=== PATIENT | male | born 1960 | race Caucasian/White ===

== ENCOUNTER 2020-03-15 08:54 | Outpatient (REF) | payer OTHER, SELFPAY ==
--- NOTE | 2020-03-15 08:52 | EMG_ITS ---
Bilateral median and ulnar motor and sensory studies were performed. Bilateral radial sensory studies were performed. Paraspinal muscles were tested with a needle. IMPRESSION: [id number] bilateral median neuropathy across carpal tunnel. MD NAI Bird/EUNICE / [id number]
== END 2020-03-15 08:55 | disposition home or self-care (01) ==
LOC: HO.NEURO 08:54
PROVIDERS: PCP Internal Medicine; Visit Provider Internal Medicine
DX: M79.606 Pain in leg, unspecified (principal); E11.9 Type 2 diabetes mellitus without complications; R20.2 Paresthesia of skin
CPT/HCPCS: 95860; 95861; 95886; 95911

== ENCOUNTER 2020-05-14 08:00 | Outpatient (REF) | payer OTHER, SELFPAY ==
[2020-05-14 11:17] LABS: MANUAL DIFF FLAG NO
[2020-05-14 11:27] LABS: Basophils Absolute Auto 0.1 X10*3/uL (0.0-0.2); Basophils Percent Auto 0.6 % (0-2); Eosinophils Absolute Auto 0.4 X10*3/uL (0.0-0.4); Eosinophils Percent Auto 3.9 % (0-4); Hematocrit 40.5 % (42-52); Hemoglobin 13.1 g/dl (14.0-18.0); Imm Gran Abs Auto 0.03 X10*3/uL (0.00-0.03); Imm Gran Pct Auto 0.3 % (0.0-0.4); Lymphocytes Absolute Auto 2.7 X10*3/uL (1.2-4.9); Lymphocytes Percent Auto 29.3 % (20-40); Mean Corpuscular HGB Conc 32.3 g/dl (31.0-36.0); Mean Corpuscular Hemoglobin 27.3 pg (27.0-33.0); Mean Corpuscular Volume 84.6 fL (80-98); Mean Platelet Volume 11.6 fL (9.4-12.4); Monocytes Absolute Auto 0.8 X10*3/uL (0.1-1.2); Monocytes Percent Auto 8.6 % (2-11); Neutrophils Absolute Auto 5.3 X10*3/uL (2.0-8.3); Neutrophils Percent Auto 57.3 % (45-73); Platelet Count 249 X10*3/uL (160-400); Red Blood Count 4.79 X10*6/uL (4.60-5.80); Red Cell Distribution Width 13.3 % (11.0-16.0); White Blood Count 9.3 X10*3/uL (4.8-10.8)
[2020-05-14 11:42] LABS: Alanine Aminotransferase 23 U/L (0-40); Alkaline Phosphatase 58 U/L (39-117); Anion Gap 12 (12-20); Aspartate Amino Transferase 16 U/L (5-37); Bilirubin Total 0.3 mg/dL (0.0-1.0); Blood Urea Nitrogen 15 mg/dL (9-16); Carbon Dioxide 27 mmol/L (22-29); Chloride 102 mmol/L (96-108); Cholesterol 151 mg/dL; Estimated Glomerular Filt Rate 59; Glucose Fasting 237 mg/dL (60-99); HDL Cholesterol 37 mg/dL; LDL Cholesterol Calculated 85 mg/dl; Potassium 4.4 mmol/l (3.3-5.1); Sodium 137 mmol/L (135-145); Total Protein 6.3 g/dL (6.5-8.0); Triglycerides 145 mg/dL; Uric Acid 6.1 mg/dL (3.4-7.0)
[2020-05-14 11:47] LABS: Glucose Urine UA 500 MG/DL (NEG); Leukocyte Esterase Urine NEG (NEG); Nitrite Urine NEG (NEG); PH 5.5 (5.0-8.0); Urine Blood NEG (NEG); Urine Ketones NEG (NEG); Urine Protein NEG (NEG-TRACE)
[2020-05-14 11:52] LABS: Appearance Urine CLEAR; Color Urine YELLOW
[2020-05-14 11:53] LABS: Creatinine Urine 118.94 mg/dL
[2020-05-14 11:58] LABS: TSH reflex Free T4 0.81 mIU/mL (0.32-4.0); Vitamin D 25-OH Total 37.4 ng/mL (>30)
[2020-05-14 12:04] LABS: Estimated Average Glucose 212 mg/dL
[2020-05-14 12:14] LABS: Mucus Urine TRACE /LPF; RBC Urine 0-2 /HPF (0); Squamous Epithelial Cell Urine TRACE /LPF
== END 2020-05-14 08:01 | disposition home or self-care (01) ==
LOC: HO.HMGCLDS 08:00
PROVIDERS: PCP Internal Medicine; Visit Provider Internal Medicine
DX: E78.5 Hyperlipidemia, unspecified (principal); I10 Essential (primary) hypertension; E11.9 Type 2 diabetes mellitus without complications; R00.0 Tachycardia, unspecified; D64.9 Anemia, unspecified; E55.9 Vitamin D deficiency, unspecified; E66.9 Obesity, unspecified; K21.9 Gastro-esophageal reflux disease without esophagitis
CPT/HCPCS: 36415; 80053; 80061; 81001; 82043; 82306; 83036; 84443; 84550; 85025

== ENCOUNTER 2020-05-17 09:40 | Outpatient (REF) | payer OTHER, SELFPAY | END 2020-05-17 09:41 | disposition home or self-care (01) | LOC: HO.LAB 09:40 | PROVIDERS: Visit Provider Nurse Practitioner Family | DX: R05 Cough (principal); Z20.828 Contact with and (suspected) exposure to other viral communicable diseases | CPT/HCPCS: U0003 ==

== ENCOUNTER 2020-05-29 07:13 | Emergency (ER) | payer OTHER, SELFPAY ==
[2020-05-29 07:20] VITALS: BP 124/73; BP 180/100; PULSE 113; PULSE 122; RESP 14; TEMP 37.8; O2SAT 94; BMI 36.3
--- NOTE | 2020-05-29 07:29 | ED_ITS ---
HPI - URI/Sore Throat General Chief Complaint: Weakness Stated Complaint: covid Time Seen by Provider: 05/29/20 07:27 Source: patient and EMS Mode of arrival: EMS Limitations: no limitations History of Present Illness HPI Narrative: 60 yo male started to feel sick 05/15 test on 05/17 resulted COVID + on 05/20 here with persistent fevers, body aches, N/V, congested cough - took tylenol last night for fever MD elicited complaint: fever, cough and nasal congestion Onset (ago): day(s) (10+ days) Consistency: constant Severity: moderate Description of mucous: clear Able to tolerate fluids by mouth: Yes Exacerbating factors: nothing Relieving factors: nothing Associated symptoms: fever, chills, nasal congestion, cough, shortness of breath, nausea and vomiting Treatments prior to arrival: none Related Data Home Medications Medication Instructions Recorded Confirmed cyclobenzaprine 10 mg tablet 10 mg PO TID PRN 05/14/20 05/14/20 lisinopril 10 mg tablet 10 mg PO DAILY 05/14/20 05/14/20 metformin 1,000 mg tablet 1,000 mg PO BID 05/14/20 05/14/20 omeprazole 20 mg capsule,delayed 20 mg PO DAILY 05/14/20 05/14/20 release pioglitazone 15 mg tablet 15 mg PO DAILY 05/14/20 05/14/20 simvastatin 20 mg tablet 20 mg PO BEDTIME 05/14/20 05/14/20 Previous Rx's Medication Instructions Recorded azithromycin 250 mg tablet See Rx Instructions PO .COMPLEX #6 05/17/20 tab hydrocodone-homatropine 5 ml PO Q6H PRN #60 ml 05/29/20 ondansetron 4 mg PO Q8H PRN #20 tab 05/29/20 Allergies Allergy/AdvReac Type Severity Reaction Status Date / Time No Known Allergies Allergy Verified 05/14/20 18:00 Review of Systems Review of Systems: Constitutional : No Weight loss, pos Fever, pos Chills, pos Fatigue, pos Malaise ENT/Mouth : No sore throat, No Rhinorrhea Eyes: No Eye Pain, No Swelling, No Redness Cardiovascular : No Chest Pain, posSOB, No Dyspnea on Exertion, No Orthopnea, No Edema, No Palpitations, pos cough Respiratory : posCough, No Sputum, No Wheezing Gastrointestinal : pos Nausea, pos Vomiting, No Diarrhea, No Constipation, No abdominal Pain, No Hematochezia, No Melena Genitourinary : No Dysuria, No Urinary Frequency, No Hematuria, Musculoskeletal : No joint pain, No Myalgias, No Joint Swelling Skin : No Skin Lesions, No rash Neuro : pos Weakness, No Numbness, No Dizziness, No Headache Psych : No Anxiety/Panic, No Depression Heme/Lymph: No Bruising, No Bleeding,No Lymphadenopathy Endocrine : No Polyuria, No Polydipsia All other systems reviewed and are negative [facility] Past Medical History Attestation statement: The following information was validated with the patient. Medical History Benign essential hypertension Degenerative arthritis of left shoulder region Diabetes mellitus GERD without esophagitis Gout Median nerve neuropathy Mild anemia Obesity (BMI 30-39.9) Pure hypercholesterolemia Tarsal tunnel syndrome of both lower extremities Vitamin D deficiency Surgical History No pertinent past surgical history Family History Family History Father No problems noted. Mother No problems noted. Social History Social History Alcohol intake: former Smoking Status: Current every day smoker Tobacco Type: Cigar Cigarettes Per Day: 1 Advance Directives: No Advance Directives Information Provided: No Physical Exam Vital Signs: Vital Signs: Last Vital Signs Temp 99.6 F 05/29/20 09:26 Pulse 104 H 05/29/20 09:26 Resp 14 05/29/20 09:26 BP 116/68 05/29/20 09:26 Pulse Ox 95 05/29/20 09:26 Body Mass Index 36.3 Appearance: Alert. Oriented X3. No acute distress. Not toxic appearing Eyes: Pupils equal, round and reactive to light. ENT: Pharynx normal. Neck: Normal inspection. Neck supple. CVS: tachycardic heart rate and rhythm. Pulses normal. Respiratory: No respiratory distress. Breath sounds normal. Abdomen: Soft and non-tender. Skin: Skin warm and dry. Normal skin color. Normal skin turgor. Extremities: No lower extremity edema. No calf ttp Neuro: Oriented X 3. No motor deficit. No sensory deficit. Course Course Course Narrative: able to tolerate PO, no hypoxia, can be managed as outpatient chemistry stable MDM - URI/Sore Throat MDM Narrative Medical decision making narrative: 60 yo male with COVID here c/o cough/congestion/dyspnea with n/v overall he is not toxic appearing, no resp distress, clear lungs, sats > 94% on RA at this time will obtain basic labs, CXR, given ODT zofran/tylenol has no chest pain to suggest ACS/PE. Lab Data Result diagrams: 05/29/20 08:10 05/29/20 08:10 Labs: Lab Results 05/29/20 05/29/20 05/29/20 Range/Units 08:10 08:10 08:10 WBC 7.8 (4.8-10.8) X10*3/uL RBC 4.23 L (4.60-5.80) X10*6/uL Hgb 11.6 L (14.0-18.0) g/dl Hct 35.0 L (42-52) % MCV 82.7 (80-98) fL MCH 27.4 (27.0-33.0) pg MCHC 33.1 (31.0-36.0) g/dl RDW 13.2 (11.0-16.0) % Plt Count 197 (160-400) X10*3/uL MPV 10.3 (9.4-12.4) fL Immature Gran % (Auto) 0.3 (0.0-0.4) % Neut % (Auto) 74.9 H (45-73) % Lymph % (Auto) 16.5 L (20-40) % [place] % (Auto) 7.4 (2-11) % Eos % (Auto) 0.9 (0-4) % Baso % (Auto) 0.0 (0-2) % Lymph # (Auto) 1.3 (1.2-4.9) X10*3/uL [place] # (Auto) 0.6 (0.1-1.2) X10*3/uL Eos # (Auto) 0.1 (0.0-0.4) X10*3/uL Baso # (Auto) 0.0 (0.0-0.2) X10*3/uL Abs Immat Gran (auto) 0.02 (0.00-0.03) X10*3/uL Absolute Neuts (auto) 5.9 (2.0-8.3) X10*3/uL Absolute Nucleated RBC 0.000 (0.0-0.012) X10*3/uL Nucleated RBC % (auto) 0.0 (0.0-0.2) /100WBC Sodium 137 (135-145) mmol/L Potassium 3.7 (3.3-5.1) mmol/l Chloride 102 (96-108) mmol/L Carbon Dioxide 25 (22-29) mmol/L Anion Gap 14 (12-20) BUN 12 (9-16) mg/dL Creatinine 1.19 (0.5-1.4) mg/dL Estim Creat Clear Calc 85.3 Estimated GFR > 60 Random Glucose 220 H (60-115) mg/dL Lactic Acid 1.5 (0.5-2.0) mmol/L Calcium 7.6 L D (8.4-10.2) mg/dL Magnesium 1.6 (1.6-2.6) mg/dL Total Bilirubin 0.5 (0.0-1.0) mg/dL Direct Bilirubin 0.3 (0.0-0.5) mg/dL AST 26 D (5-37) U/L ALT 27 (0-40) U/L Alkaline Phosphatase 97 D (39-117) U/L Lactate Dehydrogenase 257 (118-273) U/L Total Protein 5.8 L (6.5-8.0) g/dL Albumin 3.5 (3.5-5.0) g/dL Discharge Plan Discharge Clinical Impression: COVID-19, Nausea Patient Disposition: Home, Self-Care Instructions: Acute Nausea and Vomiting (ED), COVID-19 (Coronavirus Disease 2019) (ED) Additional Instructions: return to ED for any worsening symptoms or concerns Prescriptions: New ondansetron 4 mg tablet,disintegrating 4 mg PO Q8H PRN (Reason: nausea and vomiting) Qty: 20 RF: 0 hydrocodone-homatropine 5-1.5 mg/5 mL (5 mL) syrup 5 ml PO Q6H PRN (Reason: cough) Qty: 60 RF: 0 No Action omeprazole 20 mg capsule,delayed release(DR/EC) 20 mg PO DAILY RF: 0 lisinopril 10 mg tablet 10 mg PO DAILY RF: 0 simvastatin 20 mg tablet 20 mg PO BEDTIME RF: 0 metformin 1,000 mg tablet 1,000 mg PO BID RF: 0 cyclobenzaprine 10 mg tablet 10 mg PO TID PRNRF: 0 pioglitazone 15 mg tablet 15 mg PO DAILY RF: 0 azithromycin 250 mg tablet See Rx Instructions PO .COMPLEX Qty: 6 RF: 0 Referrals: Miguel Abdi MD [Primary Care Provider] - 1 week (if not better) Stand Alone Forms: Work/School Release
[2020-05-29] MEDS: Acetaminophen 325 MG TABLET 650 MG PO (07:57)
[2020-05-29 08:21] LABS: MANUAL DIFF FLAG NO
[2020-05-29 08:22] LABS: Eosinophils Absolute Auto 0.1 X10*3/uL (0.0-0.4); Eosinophils Percent Auto 0.9 % (0-4); Hemoglobin 11.6 g/dl (14.0-18.0); Imm Gran Abs Auto 0.02 X10*3/uL (0.00-0.03); Imm Gran Pct Auto 0.3 % (0.0-0.4); Lymphocytes Absolute Auto 1.3 X10*3/uL (1.2-4.9); Lymphocytes Percent Auto 16.5 % (20-40); Mean Corpuscular HGB Conc 33.1 g/dl (31.0-36.0); Mean Corpuscular Hemoglobin 27.4 pg (27.0-33.0); Mean Corpuscular Volume 82.7 fL (80-98); Mean Platelet Volume 10.3 fL (9.4-12.4); Monocytes Absolute Auto 0.6 X10*3/uL (0.1-1.2); Monocytes Percent Auto 7.4 % (2-11); Neutrophils Absolute Auto 5.9 X10*3/uL (2.0-8.3); Neutrophils Percent Auto 74.9 % (45-73); Platelet Count 197 X10*3/uL (160-400); Red Blood Count 4.23 X10*6/uL (4.60-5.80); Red Cell Distribution Width 13.2 % (11.0-16.0); White Blood Count 7.8 X10*3/uL (4.8-10.8)
--- NOTE | 2020-05-29 08:28 | XR_ITS ---
EXAMINATION: XR CHEST CLINICAL INFORMATION: Dyspnea, cough.Covid Positive COMPARISON: None TECHNIQUE: Frontal view of the chest was obtained. FINDINGS: The lungs are well-expanded and clear of acute process. There is platelike atelectasis left lung base. Heart size and pulmonary vascularity is normal. There is moderate spondylosis dorsal spine. No lytic process. XR/XR chest 1V IMPRESSION: Platelike atelectasis left lung base. No acute process.
[2020-05-29 08:46] LABS: Lactic Acid 1.5 mmol/L (0.5-2.0)
[2020-05-29 09:05] LABS: Alanine Aminotransferase 27 U/L (0-40); Albumin Level 3.5 g/dL (3.5-5.0); Alkaline Phosphatase 97 U/L (39-117); Anion Gap 14 (12-20); Aspartate Amino Transferase 26 U/L (5-37); Bilirubin Direct 0.3 mg/dL (0.0-0.5); Bilirubin Total 0.5 mg/dL (0.0-1.0); Blood Urea Nitrogen 12 mg/dL (9-16); Calcium 7.6 mg/dL (8.4-10.2); Carbon Dioxide 25 mmol/L (22-29); Chloride 102 mmol/L (96-108); Creatinine Clr Calc Pharmacy 85.3; Estimated Glomerular Filt Rate > 60; Glucose Random 220 mg/dL (60-115); Lactate Dehydrogenase 257 U/L (118-273); Magnesium 1.6 mg/dL (1.6-2.6); Potassium 3.7 mmol/l (3.3-5.1); Sodium 137 mmol/L (135-145); Total Protein 5.8 g/dL (6.5-8.0)
[2020-05-29 09:26] VITALS: BP 116/68; PULSE 104; RESP 14; TEMP 37.6; O2SAT 95
--- NOTE | 2020-05-29 09:30 | PC.NURSE ---
resting quietly in bed, continues to report bilateral hip pain/aches. no acute resp distress noted. afebrile. no vomiting tolerating po fluids
== END 2020-05-29 10:57 | disposition home or self-care (01) ==
PROVIDERS: Emergency Provider Emergency Medicine; PCP Internal Medicine
DX: R11.2 Nausea with vomiting, unspecified (principal); Z86.16 Personal history of COVID-19; E11.9 Type 2 diabetes mellitus without complications; I10 Essential (primary) hypertension; Z79.84 Long term (current) use of oral hypoglycemic drugs; Z79.899 Other long term (current) drug therapy; F17.290 Nicotine dependence, other tobacco product, uncomplicated
CPT/HCPCS: 36415; 71045; 80048; 80076; 83605; 83615; 83735; 85025; 87040; 87147; 87205; 99283; 99284

== ENCOUNTER 2020-08-16 09:58 | Outpatient (REF) | payer OTHER, SELFPAY ==
[2020-08-16 11:08] LABS: MANUAL DIFF FLAG NO
[2020-08-16 11:19] LABS: Basophils Percent Auto 0.4 % (0-2); Eosinophils Absolute Auto 0.1 X10*3/uL (0.0-0.4); Eosinophils Percent Auto 1.5 % (0-4); Hematocrit 39.1 % (42-52); Hemoglobin 12.6 g/dl (14.0-18.0); Imm Gran Abs Auto 0.02 X10*3/uL (0.00-0.03); Imm Gran Pct Auto 0.2 % (0.0-0.4); Lymphocytes Absolute Auto 2.4 X10*3/uL (1.2-4.9); Lymphocytes Percent Auto 25.9 % (20-40); Mean Corpuscular HGB Conc 32.2 g/dl (31.0-36.0); Mean Corpuscular Hemoglobin 27.4 pg (27.0-33.0); Monocytes Absolute Auto 0.8 X10*3/uL (0.1-1.2); Monocytes Percent Auto 8.6 % (2-11); Neutrophils Absolute Auto 5.9 X10*3/uL (2.0-8.3); Neutrophils Percent Auto 63.4 % (45-73); Platelet Count 245 X10*3/uL (160-400); Red Cell Distribution Width 14.4 % (11.0-16.0); White Blood Count 9.4 X10*3/uL (4.8-10.8)
[2020-08-16 11:30] LABS: Glucose Urine UA NEG (NEG); Leukocyte Esterase Urine NEG (NEG); Nitrite Urine NEG (NEG); PH 5.5 (5.0-8.0); Specific Gravity - Urine 1.025 (1.005-1.025); Urine Blood NEG (NEG); Urine Ketones NEG (NEG); Urine Protein NEG (NEG-TRACE)
[2020-08-16 11:38] LABS: Color Urine YELLOW
[2020-08-16 11:39] LABS: Appearance Urine CLEAR
[2020-08-16 12:06] LABS: Vitamin D 25-OH Total 37.3 ng/mL (>30)
[2020-08-16 12:08] LABS: Alanine Aminotransferase 24 U/L (0-40); Albumin Level 4.2 g/dL (3.5-5.0); Alkaline Phosphatase 56 U/L (39-117); Anion Gap 14 (12-20); Aspartate Amino Transferase 16 U/L (5-37); Bilirubin Total 0.4 mg/dL (0.0-1.0); Blood Urea Nitrogen 11 mg/dL (9-16); Calcium 9.2 mg/dL (8.4-10.2); Carbon Dioxide 26 mmol/L (22-29); Chloride 106 mmol/L (96-108); Cholesterol 166 mg/dL; Estimated Glomerular Filt Rate > 60; Glucose Fasting 160 mg/dL (60-99); HDL Cholesterol 34 mg/dL; LDL Cholesterol Calculated 86 mg/dl; Potassium 4.1 mmol/L (3.3-5.1); Sodium 142 mmol/L (135-145); Total Protein 6.4 g/dL (6.5-8.0); Triglycerides 234 mg/dL; Uric Acid 6.5 mg/dL (3.4-7.0)
== END 2020-08-16 09:59 | disposition home or self-care (01) ==
LOC: HO.HMGCLDS 09:58
PROVIDERS: PCP Internal Medicine; Visit Provider Internal Medicine
DX: I10 Essential (primary) hypertension (principal); E55.9 Vitamin D deficiency, unspecified; E78.00 Pure hypercholesterolemia, unspecified; M10.9 Gout, unspecified
CPT/HCPCS: 36415; 80053; 80061; 81003; 82306; 84443; 84550; 85025

== ENCOUNTER → 2020-09-28 08:16 | Outpatient (BNVA) | payer OTHER, SELFPAY | PROVIDERS: PCP Internal Medicine; Visit Provider Nurse Practitioner Gerontology | DX: E11.9 Type 2 diabetes mellitus without complications (principal); E78.00 Pure hypercholesterolemia, unspecified; I10 Essential (primary) hypertension; E66.9 Obesity, unspecified | CPT/HCPCS: 82947 ==

== ENCOUNTER → 2020-10-25 09:09 | Outpatient (BNVA) | payer OTHER, SELFPAY | PROVIDERS: PCP Internal Medicine; Visit Provider Dietitian, Registered | DX: E11.9 Type 2 diabetes mellitus without complications (principal) | CPT/HCPCS: 97802 ==

== ENCOUNTER → 2020-11-09 09:18 | Outpatient (BNVA) | payer OTHER, SELFPAY | PROVIDERS: PCP Internal Medicine; Visit Provider Nurse Practitioner Gerontology | DX: E11.65 Type 2 diabetes mellitus with hyperglycemia (principal); E66.9 Obesity, unspecified; E78.00 Pure hypercholesterolemia, unspecified; I10 Essential (primary) hypertension; Z79.899 Other long term (current) drug therapy | CPT/HCPCS: 82947; 99212 ==

== ENCOUNTER → 2020-12-05 09:34 | Outpatient (BNVA) | payer OTHER, SELFPAY | PROVIDERS: PCP Internal Medicine; Visit Provider Dietitian, Registered | DX: E11.65 Type 2 diabetes mellitus with hyperglycemia (principal) | CPT/HCPCS: 97803 ==

== ENCOUNTER 2020-12-19 06:43 | Outpatient (REF) | payer OTHER, SELFPAY ==
[2020-12-19 08:25] LABS: MANUAL DIFF FLAG NO
[2020-12-19 08:31] LABS: Basophils Percent Auto 0.4 % (0-2); Eosinophils Absolute Auto 0.3 X10*3/uL (0.0-0.4); Eosinophils Percent Auto 3.3 % (0-4); Hematocrit 41.4 % (42-52); Hemoglobin 13.2 g/dl (14.0-18.0); Imm Gran Abs Auto 0.03 X10*3/uL (0.00-0.03); Imm Gran Pct Auto 0.3 % (0.0-0.4); Lymphocytes Absolute Auto 2.9 X10*3/uL (1.2-4.9); Lymphocytes Percent Auto 30.3 % (20-40); Mean Corpuscular HGB Conc 31.9 g/dl (31.0-36.0); Mean Corpuscular Hemoglobin 27.5 pg (27.0-33.0); Mean Corpuscular Volume 86.3 fL (80-98); Mean Platelet Volume 11.3 fL (9.4-12.4); Monocytes Absolute Auto 0.9 X10*3/uL (0.1-1.2); Monocytes Percent Auto 9.1 % (2-11); Neutrophils Absolute Auto 5.5 X10*3/uL (2.0-8.3); Neutrophils Percent Auto 56.6 % (45-73); Platelet Count 260 X10*3/uL (160-400); Red Cell Distribution Width 13.7 % (11.0-16.0); White Blood Count 9.7 X10*3/uL (4.8-10.8)
[2020-12-19 08:32] LABS: Glucose Urine UA >=1000 MG/DL (NEG); Leukocyte Esterase Urine NEG (NEG); Nitrite Urine NEG (NEG); Urine Blood NEG (NEG); Urine Ketones NEG (NEG); Urine Protein NEG (NEG-TRACE)
[2020-12-19 08:35] LABS: Appearance Urine CLEAR; Color Urine YELLOW
[2020-12-19 08:43] LABS: Estimated Average Glucose 171 mg/dL; Hemoglobin A1c % 7.6 %
[2020-12-19 08:48] LABS: WBC Urine 0 /HPF (0-4)
[2020-12-19 08:49] LABS: RBC Urine 0 /HPF (0)
[2020-12-19 08:51] LABS: Creatinine Urine 91.23 mg/dL; Microalbum/Creatinine Ratio Ur 8.7 ug/mg cr
[2020-12-19 08:59] LABS: Alanine Aminotransferase 23 U/L (0-40); Albumin Level 4.1 g/dL (3.5-5.0); Alkaline Phosphatase 59 U/L (39-117); Anion Gap 13 (12-20); Aspartate Amino Transferase 16 U/L (5-37); Bilirubin Total 0.2 mg/dL (0.0-1.0); Blood Urea Nitrogen 19 mg/dL (9-16); Calcium 9.2 mg/dL (8.4-10.2); Carbon Dioxide 26 mmol/L (22-29); Chloride 107 mmol/L (96-108); Cholesterol 157 mg/dL; Estimated Glomerular Filt Rate 56; Glucose Fasting 153 mg/dL (60-99); HDL Cholesterol 28 mg/dL; LDL Cholesterol Calculated 54 mg/dl; Potassium 4.6 mmol/L (3.3-5.1); Sodium 141 mmol/L (135-145); Total Protein 6.1 g/dL (6.5-8.0); Triglycerides 378 mg/dL
[2020-12-19 09:09] LABS: TSH reflex Free T4 0.76 uIU/mL (0.32-4.0); Vitamin D 25-OH Total 48.8 ng/mL (>30)
[2020-12-19 09:10] LABS: Uric Acid 6.5 mg/dL (3.4-7.0)
== END 2020-12-19 06:44 | disposition home or self-care (01) ==
LOC: HO.LAB 06:43
PROVIDERS: PCP Internal Medicine; Visit Provider Internal Medicine
DX: E11.9 Type 2 diabetes mellitus without complications (principal); E78.00 Pure hypercholesterolemia, unspecified; I10 Essential (primary) hypertension; D64.9 Anemia, unspecified; K21.9 Gastro-esophageal reflux disease without esophagitis; E66.9 Obesity, unspecified; E55.9 Vitamin D deficiency, unspecified; M10.00 Idiopathic gout, unspecified site
CPT/HCPCS: 36415; 80053; 80061; 81001; 82043; 82306; 83036; 84443; 84550; 85025

== ENCOUNTER → 2021-01-22 07:23 | Outpatient (BNVA) | payer OTHER, SELFPAY | PROVIDERS: PCP Internal Medicine; Visit Provider Nurse Practitioner Gerontology | DX: E11.9 Type 2 diabetes mellitus without complications (principal); E66.9 Obesity, unspecified; E78.00 Pure hypercholesterolemia, unspecified; E55.9 Vitamin D deficiency, unspecified; I10 Essential (primary) hypertension | CPT/HCPCS: 82947; 99212 ==

== ENCOUNTER → 2021-01-24 15:08 | Outpatient (BNVA) | payer OTHER, SELFPAY | PROVIDERS: PCP Internal Medicine; Referring Provider Internal Medicine; Visit Provider Surgery | DX: K42.9 Umbilical hernia without obstruction or gangrene (principal); K43.2 Incisional hernia without obstruction or gangrene | CPT/HCPCS: 99202 ==

== ENCOUNTER → 2021-02-04 09:12 | Outpatient (BNVA) | payer OTHER, SELFPAY | PROVIDERS: PCP Internal Medicine; Visit Provider Dietitian, Registered | DX: E11.9 Type 2 diabetes mellitus without complications (principal) | CPT/HCPCS: 97803 ==

== ENCOUNTER 2021-02-06 09:57 | Outpatient (REF) | payer OTHER, SELFPAY ==
--- NOTE | ~2021-02-06 | CT_ITS ---
EXAMINATION: CT ABDOMEN AND PELVIS WITHOUT CONTRAST CLINICAL INFORMATION: Umbilical hernia without obstruction. COMPARISON: None TECHNIQUE: Multidetector volumetric imaging was performed from the superior aspect of the liver through the pubic symphysis. Sagittal and coronal reformatted images were obtained on the technologist's workstation. This CT examination was performed using dose optimization techniques as appropriate, variously including the following: *Automated exposure control *Adjustment of mA and/or kV according to patient size (this includes techniques or standardized protocols for targeted exams where dose is matched to indication/reason for exam; i.e. extremities or head) *Use of iterative reconstruction technique DLP: 814 mGy-cm FINDINGS: LUNG BASES: There are minimal linear atelectatic changes in the lingula. The lung bases are clear. Heart size is normal. LIVER, GALLBLADDER, AND BILIARY TREE: The liver is normal in size, shape, and attenuation. No focal hepatic lesion or biliary ductal dilatation is present. The gallbladder has been surgically removed. PANCREAS: Unremarkable. SPLEEN: Unremarkable. ADRENAL GLANDS: Unremarkable. KIDNEYS AND URETERS: The kidneys are normal in size, shape, and attenuation. Tiny nonobstructing 1 mm radiopaque calculi upper pole left kidney. No additional radiopaque calculi seen in either kidney. No caliectasis or hydronephrosis. There is mild perinephric bilateral stranding. BLADDER: Unremarkable. GASTROINTESTINAL TRACT: Scattered moderate stool is seen in the colon without distention. The small-bowel loops are normal caliber. The stomach is nondistended with recently ingested food. ABDOMINAL WALL: There is a right paramidline epigastric abdominal wall hernia containing fat. A left paraumbilical hernia with 1.2 cm wide neck containing intraperitoneal fat is noted. A small right paraumbilical hernia is also noted containing fat. It is better visualized on axial image 59/3. There is a left inguinal hernia containing a loop of sigmoid colon. LYMPH NODES: No abnormal size vertebral lymph nodes are seen. VASCULAR: Unremarkable. PELVIC VISCERA: There is no free air or free fluid. OSSEOUS STRUCTURES: There is mild degenerative facet joint arthropathy L5-S1 and L4-L5 disc levels. No fracture, lytic or sclerotic process seen. Mild ventral spondylosis lower dorsal spine is noted. CT/CT abdomen pelvis wo con IMPRESSION: There are several abdominal wall hernias: 1. Right paramidline anterior abdominal wall epigastric hernia containing fat. 2. Left paraumbilical hernia containing fat. 3. A right periumbilical hernia containing fat. 4. A left inguinal hernia containing a loop of sigmoid colon. Moderate constipation without obstruction. Gallbladder has been surgically removed.
== END 2021-02-06 09:58 | disposition home or self-care (01) ==
LOC: HO.CT 09:57
PROVIDERS: Visit Provider Surgery
DX: K42.9 Umbilical hernia without obstruction or gangrene (principal)
CPT/HCPCS: 74176

== ENCOUNTER 2021-04-26 07:48 | Day surgery (SDC) | payer OTHER, SELFPAY ==
--- NOTE | 2021-04-15 | ECG_ITS ---
Test Reason : preop Blood Pressure : / mmHG Vent. Rate : 109 BPM Atrial Rate : 109 BPM P-R Int : 148 ms QRS Dur : 082 ms QT Int : 336 ms P-R-T Axes : 073 073 054 degrees QTc Int : 452 ms Sinus tachycardia Intra-ventricular conduction delay Otherwise normal ECG When compared with ECG of 05-NOV-2018 11:52, No significant change was found Referred By: Cristiana Thornton Electronically Signed By:CONCEPCION ELIZABETH MD
[2021-04-15 11:49] VITALS: BP 121/66; PULSE 116; RESP 16; O2SAT 96; BMI 37.3
--- NOTE | 2021-04-15 12:23 | HO.ANESPROP2 ---
Documented by User: Cristiana Thornton NP 04/25/21 09:36 HPI - Anesthesia Eval Consult details Narrative: 60yo M for Repair of Recurrent Large Umbilical Hernia and Incisional Hernia RUQ Chronic tachy Pt reports FBS 110-140 PMFSH Active Problems Active Problems: All Active Problems (Updated 04/15/21 @ 12:07 by Telma Anderson RN) Cough (Acute) COVID-19 (Acute) Contact dermatitis (Acute) Annual physical exam (Acute) Colon cancer screening (Acute) Incisional hernia (Acute) Recurrent umbilical hernia (Acute) Ventral hernia (Acute) Umbilical hernia (Acute) Diabetes mellitus (Acute) Benign essential hypertension (Acute) Pure hypercholesterolemia (Acute) Obesity (BMI 30-39.9) (Acute) Median nerve neuropathy (Acute) Tarsal tunnel syndrome of both lower extremities (Acute) Gout (Acute) Vitamin D deficiency (Acute) Degenerative arthritis of left shoulder region (Acute) Mild anemia (Acute) GERD without esophagitis (Acute) Past Medical History Medical History (Updated 04/15/21 @ 12:07 by Telma Anderson RN) Benign essential hypertension Degenerative arthritis of left shoulder region Diabetes mellitus GERD without esophagitis Gout Incisional hernia Median nerve neuropathy Mild anemia Obesity (BMI 30-39.9) Pure hypercholesterolemia Recurrent umbilical hernia Tachycardia Tarsal tunnel syndrome of both lower extremities Umbilical hernia Ventral hernia Vitamin D deficiency Family History Family History Father No problems noted. Mother No problems noted. Family history of problems with anesthesia: No Surgical History Surgical History (Updated 04/15/21 @ 12:10 by Telma Anderson RN) Hx of cholecystectomy Hx of colonoscopy Hx of hernia repair Hx of rotator cuff surgery Hx of umbilical hernia repair History of Problems with Anesthesia: No Social History Social History Household Members: Family Housing: House Are you a primary life care planner to a significant other at home: Yes (takes care of mother) Do you presently have visiting nurse or other home services: No Alcohol intake: former Patient Tobacco Use Status: Current someday Tobacco user Tobacco use type: Cigar Cigarettes Per Day: 2 Years Smoked: 30 Have you been hit, kicked, punched, or otherwise hurt by someone within the past year? If so, by whom?: No Are you DNR?: No Advance Directives: No Advance Directives Information Provided: No (declined) Advance Directives on File: No Recently lost weight without trying: No Nutrition Risks: No Nutritional Risk Poor oral hygiene: No service: No Current occupational status: unemployed Narrative Narrative: Recent mild URI with Nasal congestion, productive cough. No fevers. Is clearing. Lungs CTA at PAT. No SOB with speaking in long sentences. No CP/SOB with yard work. Meds Allergies Allergy/AdvReac Type Severity Reaction Status Date / Time No Known Allergies Allergy Verified 04/15/21 12:11 Home Medications Medication Instructions Recorded Confirmed Last Taken Type multivitamin 1 tab PO DAILY 01/22/21 04/15/21 Unknown History [id number] C-Mn 500 cap PO 04/15/21 Unknown History mg-400 mg capsule Exam Exam Date and Time: April 15, 2021 1223 Height,Weight and Vital Signs: Height 5 ft 10 in Weight 117.934 kg Last Vital Signs Pulse 116 H 04/15/21 11:49 Resp 16 04/15/21 11:49 BP 121/66 04/15/21 11:49 Pulse Ox 96 04/15/21 11:49 Pertinent Lab Results Pertinent Lab Results: Lab Results 04/15/21 04/15/21 04/15/21 Range/Units 13:02 13:02 13:02 WBC 12.7 H (4.8-10.8) X10*3/uL RBC 4.93 (4.60-5.80) X10*6/uL Hgb 13.3 L (14.0-18.0) g/dl Hct 41.6 L (42.0-52.0) % MCV 84.4 (80.0-98.0) fL MCH 27.0 (27.0-33.0) pg MCHC 32.0 (31.0-36.0) g/dl RDW 14.1 (11.0-16.0) % Plt Count 280 (160-400) X10*3/uL MPV 10.6 (9.4-12.4) fL Absolute Nucleated RBC 0.000 (0.0-0.012) X10*3/uL Nucleated RBC % (auto) 0.0 (0.0-0.2) /100WBC Sodium 141 (135-145) mmol/L Potassium 4.2 (3.3-5.1) mmol/L Chloride 108 (96-108) mmol/L Carbon Dioxide 24 (22-29) mmol/L Anion Gap 13 (12-20) BUN 19 H (9-16) mg/dL Creatinine 1.42 H (0.5-1.4) mg/dL Estim Creat Clear Calc 70.2 Estimated GFR 51 Random Glucose 181 H (60-115) mg/dL Estimat Average Glucose 169 mg/dL Hemoglobin A1c % 7.5 % Calcium 9.5 (8.4-10.2) mg/dL Narrative Narrative: EKG 03/2021 Vent. Rate : 109 BPM ? ? Atrial Rate : 109 BPM ?? P-R Int : 148 ms? QRS Dur : 082 ms ? ? QT Int : 336 ms ? ? ? P-R-T Axes : 073 073 054 degrees ?? QTc Int : 452 ms ? Sinus tachycardia Intra-ventricular conduction delay Otherwise normal ECG When compared with ECG of 05-NOV-2018 11:52, No significant change was found Airway Mallampati Class: II TM Dist: >3cm Neck ROM: Full Loose/Missing/Broken Teeth: No (1 x crown right lower) Heart: tachy, RR Lungs: CTAB Assessment and Plan Assessment Anesthesia Assessment: Anesthesia Plan Discussed, Smoking Cess. Discussed and PAT Visit Final Anesthetic Review Family History of Problems with Anesthesia: No History of Problems with Anesthesia: No Documented by User: Sergey Thompson 04/26/21 09:38 HPI - Anesthesia Eval Consult details Narrative: 60yo M for Repair of Recurrent Large Umbilical Hernia and Incisional Hernia RUQ Chronic tachycardia . no symptoms Pt reports FBS 110-140 stye on the eye . [facility] Past Medical History Medical History (Updated 04/15/21 @ 12:07 by Telma Anderson RN) Benign essential hypertension Degenerative arthritis of left shoulder region Diabetes mellitus GERD without esophagitis Gout Incisional hernia Median nerve neuropathy Mild anemia Obesity (BMI 30-39.9) Pure hypercholesterolemia Recurrent umbilical hernia Tachycardia Tarsal tunnel syndrome of both lower extremities Umbilical hernia Ventral hernia Vitamin D deficiency Functional capacity: independent ambulation Family History Family History Father No problems noted. Mother No problems noted. Surgical History Surgical History (Updated 04/15/21 @ 12:10 by Telma Anderson RN) Hx of cholecystectomy Hx of colonoscopy Hx of hernia repair Hx of rotator cuff surgery Hx of umbilical hernia repair Social History Social History Household Members: Family Housing: House Are you a primary life care planner to a significant other at home: Yes (takes care of mother) Do you presently have visiting nurse or other home services: No Alcohol intake: former Patient Tobacco Use Status: Current someday Tobacco user Tobacco use type: Cigar Cigarettes Per Day: 2 Years Smoked: 30 Have you been hit, kicked, punched, or otherwise hurt by someone within the past year? If so, by whom?: No Are you DNR?: No Advance Directives: No Advance Directives Information Provided: No (declined) Advance Directives on File: No Recently lost weight without trying: No Nutrition Risks: No Nutritional Risk Poor oral hygiene: No service: No Current occupational status: unemployed Meds Allergies Allergy/AdvReac Type Severity Reaction Status Date / Time No Known Allergies Allergy Verified 04/15/21 12:11 Home Medications Medication Instructions Recorded Confirmed Last Taken Type multivitamin 1 tab PO DAILY 01/22/21 04/15/21 Unknown History [id number]-[id number]-[id number] C-Mn 500 cap PO 04/15/21 Unknown History mg-400 mg capsule Exam Airway Loose/Missing/Broken Teeth: Yes (Missing tooth , caps bottom . ) Assessment and Plan Final Anesthetic Review NPO: Yes ASA Class: III Final Preanesthetic Review: Meds/Allgs Chart Reviewed and Anes Risks/Benef Reviewed Patient Risk: Intermediate Procedure Risk: Intermediate Anesthetic Plan Anesthetic Plan: GA Disposition: Standard PACU
[2021-04-15 13:25] LABS: Hematocrit 41.6 % (42.0-52.0); Hemoglobin 13.3 g/dl (14.0-18.0); Mean Corpuscular Volume 84.4 fL (80.0-98.0); Mean Platelet Volume 10.6 fL (9.4-12.4); Platelet Count 280 X10*3/uL (160-400); Red Blood Count 4.93 X10*6/uL (4.60-5.80); Red Cell Distribution Width 14.1 % (11.0-16.0); White Blood Count 12.7 X10*3/uL (4.8-10.8)
[2021-04-15 13:34] LABS: Estimated Average Glucose 169 mg/dL; Hemoglobin A1c % 7.5 %
[2021-04-15 13:43] LABS: Anion Gap 13 (12-20); Blood Urea Nitrogen 19 mg/dL (9-16); Calcium 9.5 mg/dL (8.4-10.2); Carbon Dioxide 24 mmol/L (22-29); Chloride 108 mmol/L (96-108); Creatinine Clr Calc Pharmacy 70.2; Estimated Glomerular Filt Rate 51; Glucose Random 181 mg/dL (60-115); Potassium 4.2 mmol/L (3.3-5.1); Sodium 141 mmol/L (135-145)
[2021-04-26] VITALS (10 sets, daily range): BP systolic 125–156; BP diastolic 71–90; PULSE 99–107; RESP 15–18; TEMP 36.3; O2SAT 93–99
[2021-04-26] MEDS: Lactated Ringers 1,000 ML 100 ML IVCONT (08:48)
[2021-04-26 08:50] LABS: Glucose, Whole Blood 142 mg/dL (60-115)
[2021-04-26 08:57] LABS: COVID-19 Test Negative (Negative); IDNOW Serial# 9DD0AD1C
--- NOTE | 2021-04-26 09:14 | MHC.SHP ---
Pre-Procedural Eval Section A Date of Service: 04/26/21 Section B Chief Complaint: Recurrent umbilical hernia,Incisional hernia Details of Present Illness: has had a ventral hernia and recurrent umbilical hernia, discomfort and wants to proceed with repair. Relevant Family History (Specify if Yes): No Relevant Social History: None Present Medications: see Short Stay Collaborative assessment Medical History: Significant History ( Obesity, hyperlipidemia,, GERD, gout, hypertension) History of Previous Operations: Relevant previous surgery/procedure and date(s) ( has previous repair of an umbilical hernia; had laparoscopic cholecystectomy in the past) Allergies: Allergies Allergy/AdvReac Type Severity Reaction Status Date / Time No Known Allergies Allergy Verified 04/15/21 12:11 Review of Systems Sugical H&P ROS: Negative: Constitution, Cardiovascular, Respiratory, Neurological, Psychiatric, Hem-Onc, Allergic/Immunologic, Gastrointestinal, Genitourinary, Musculoskeletal, Integumentary, Endocrine and Eyes/Ears/Nose/Throat Exam Surgical H&P Exam: Normal: HEENT, Normal: Heart, Normal: Lungs, Normal: Extremities, Normal: Skin and Normal: Neurological Exam Comment: hernia umbilicus as well as the right side of the upper abdomen from previous port site Plan Diagnosis/Plan: Unchanged I have reviewed the history and physical and performed a pertinent physical examination on my patient. No changes have occurred unless specified.
--- NOTE | 2021-04-26 10:57 | W.PM.OPN ---
Operative Note Operative Note Date of Service: 04/26/21 Narrative: Preop diagnosis: Recurrent umbilical hernia Incisional hernia port site in the epigastric area Postop diagnosis: The same Procedure: repair of a recurrent umbilical hernia Ventralex mesh, with partial omentectomy, and repair of a port site hernia in the epigastric area also with Ventralex mesh, extensive lysis of adhesions Surgeon: Mike Billy MD 1st clerical administrative assistant: YESI Wall The patient is a 60-year-old male who had seen me in the office because of a mass on the umbilicus as well as on the epigastric area. He had a previous repair of an umbilical hernia about 20 years ago in he says that this has recurred. he had a mass on the left periumbilical area which was not reducible. There was also note of reducible mass on the epigastric area to the right of the midline from what appeared to be a previous port site for laparoscopic cholecystectomy. Both of these defects were seen on the CAT scan with note of just fatty contents Without bowel loops. he wanted to proceed with repair. He understood the technique of repair with mesh placement. He was aware of the risks, benefits, and alternatives. He was brought to the operating room and placed supine on the table under general anesthesia via endotracheal tube. The abdomen is prepped and draped in the usual sterile fashion. A surgical time-out was done. The patient received cefazolin 2 g IV preoperatively I made the short incision and epigastric area with the a blade 15. This area had been infiltrated with lidocaine 1%. This incision was deepened with electrocautery through the full-thickness of the skin and subcutaneous fat until was able to visualize hernia. The hernia contained only fat. I sharply dissected the hernia off of the rest of subcutaneous layer fashion using sharp dissection with Metzenbaum scissors. I divided adhesions of the hernia from the fascial edge until was able to reduce this hernia completely. The edges surrounding the hernia were clear of adhesions. Defect was about 1.3 cm in diameter. I used a small-sized Ventralex mesh and this was flattened any the fascia. The Prolene straps of the mesh were secured to the fascial edge with Prolene 2 sutures. I trimmed the Prolene straps flush. I closed the fascial defect with a [id number] Maxon 1 stitch. I then proceeded to to the repair of the hernia on the umbilicus. I infiltrated the planned line of incision lidocaine 1%. I made an incision to the left of the umbilicus using blade 15. This was carried down through the full-thickness of the skin and subcutaneous fat with electrocautery until was able to visualize hernia contents. The hernia contents consisted only of fat. There was actually a large amount of omental fat within the hernia. I had to separate this from the like us by careful sharp dissection with electrocautery as well as with Metzenbaum scissors. I circumferentially dissected the rest of the hernia contents of the subcutaneous fat until was able to visualize the pending fascia. I defined the fascial edges of the hernia and carefully created the rest of the hernia contents using dissection. We had to do a lot of lysis of adhesions because of the large amounts of adhesions tethering the MIGUEL to the fascial edge. Furthermore, there was a large amount of omentum that was incarcerated chronically. The fascial defect was small and we could not reduce the hernia at all so I had to do partial omentectomy with careful ligation and division the omentum. Eventually I was able to reduce the entire hernia through the fascial defect. The fascial defect was about 0.6 cm in diameter. I used a small-sized Ventralex mesh and this was flattened under the fascia. I actually examined the surrounding area of the umbilicus and there was no other hernia the could be palpated or visualized. I secured the Prolene straps of the mesh to the fascial edge with Prolene 2 sutures. I trimmed the Prolene straps flush on the fascial level. I closed the fascia with a [id number] Maxon 1 stitch. Copies irrigated. The subcutaneous layer was closed with Dexon 3-0 interrupted sutures. Skin closure was achieved on all incisions using Dexon 4-0 subcuticular sutures. Steri-Strips and dressings were applied. Both incisions were infiltrated with Marcaine 0.5% for postop analgesia. The procedure was then completed The patient tolerated procedure well. There were no complications noted. Initial and final counts of sponges and instruments were correct. Estimated blood loss was about 25 cc The patient was extubated without difficulty and transferred to the recovery room with stable vital signs.
[2021-04-26] MEDS: HYDROmorphone HCl 0.5 MG/0.5 ML SYRINGE IVPUSH (11:56)
[2021-04-26] MEDS: oxyCODONE HCl Immed Release 5 MG TABLET 10 MG PO (13:07)
== END 2021-04-26 14:02 | disposition home or self-care (01) ==
PROVIDERS: Nurse Practitioner; PCP Internal Medicine; Visit Provider Surgery
PROC: (CPT 49560; principal; 2021-04-26 09:20)
DX: K42.9 Umbilical hernia without obstruction or gangrene (principal); K43.2 Incisional hernia without obstruction or gangrene; Z90.49 Acquired absence of other specified parts of digestive tract; K21.9 Gastro-esophageal reflux disease without esophagitis; I10 Essential (primary) hypertension; E11.9 Type 2 diabetes mellitus without complications; Z79.84 Long term (current) use of oral hypoglycemic drugs; Z79.899 Other long term (current) drug therapy; E66.9 Obesity, unspecified; Z68.37 Body mass index [BMI] 37.0-37.9, adult; Z20.822 Contact with and (suspected) exposure to COVID-19; F17.200 Nicotine dependence, unspecified, uncomplicated
CPT/HCPCS: 49560; 49568; 49585; 49999; 36415; 80048; 82947; 83036; 85027; 87635; 88302; 88304; 93005; C1781; J0131; J0690; J1170; J2250; J2370; J2405; J3010

== ENCOUNTER → 2021-05-09 09:30 | Outpatient (BNVA) | payer OTHER, SELFPAY | PROVIDERS: PCP Internal Medicine; Referring Provider Internal Medicine; Visit Provider Surgery | DX: Z48.815 Encounter for surgical aftercare following surgery on the digestive system (principal); Z87.19 Personal history of other diseases of the digestive system; K40.90 Unilateral inguinal hernia, without obstruction or gangrene, not specified as recurrent | CPT/HCPCS: 99212 ==

== ENCOUNTER 2021-05-29 07:44 | Outpatient (REF) | payer OTHER, SELFPAY ==
[2021-05-29 08:00] LABS: MANUAL DIFF FLAG NO
[2021-05-29 08:41] LABS: Basophils Percent Auto 0.4 % (0-2); Eosinophils Absolute Auto 0.4 X10*3/uL (0.0-0.4); Eosinophils Percent Auto 4.2 % (0-4); Hematocrit 42.1 % (42.0-52.0); Hemoglobin 13.6 g/dl (14.0-18.0); Imm Gran Abs Auto 0.02 X10*3/uL (0.00-0.03); Imm Gran Pct Auto 0.2 % (0.0-0.4); Lymphocytes Percent Auto 31.2 % (20-40); Mean Corpuscular HGB Conc 32.3 g/dl (31.0-36.0); Mean Corpuscular Hemoglobin 27.7 pg (27.0-33.0); Mean Corpuscular Volume 85.7 fL (80.0-98.0); Mean Platelet Volume 10.7 fL (9.4-12.4); Monocytes Absolute Auto 1.1 X10*3/uL (0.1-1.2); Monocytes Percent Auto 11.1 % (2-11); Neutrophils Percent Auto 52.9 % (45-73); Platelet Count 245 X10*3/uL (160-400); Red Blood Count 4.91 X10*6/uL (4.60-5.80); Red Cell Distribution Width 14.2 % (11.0-16.0); White Blood Count 9.5 X10*3/uL (4.8-10.8)
[2021-05-29 08:58] LABS: Estimated Average Glucose 169 mg/dL; Hemoglobin A1c % 7.5 %
[2021-05-29 09:12] LABS: Appearance Urine CLEAR; Color Urine YELLOW; Glucose Urine UA >=1000 MG/DL (NEG); Leukocyte Esterase Urine NEG (NEG); Nitrite Urine NEG (NEG); Urine Blood NEG (NEG); Urine Ketones NEG (NEG); Urine Protein NEG (NEG-TRACE)
[2021-05-29 09:13] LABS: Alanine Aminotransferase 25 U/L (0-40); Alkaline Phosphatase 58 U/L (39-117); Anion Gap 10 (12-20); Aspartate Amino Transferase 15 U/L (5-37); Bilirubin Total 0.4 mg/dL (0.0-1.0); Blood Urea Nitrogen 14 mg/dL (9-16); Calcium 9.9 mg/dL (8.4-10.2); Carbon Dioxide 30 mmol/L (22-29); Chloride 106 mmol/L (96-108); Cholesterol 174 mg/dL; Estimated Glomerular Filt Rate 58; Glucose Fasting 164 mg/dL (60-99); HDL Cholesterol 37 mg/dL; LDL Cholesterol Calculated 89 mg/dl; Potassium 4.3 mmol/L (3.3-5.1); Sodium 142 mmol/L (135-145); Total Protein 6.2 g/dL (6.5-8.0); Triglycerides 243 mg/dL; Uric Acid 5.8 mg/dL (3.4-7.0)
[2021-05-29 09:24] LABS: TSH reflex Free T4 0.73 uIU/mL (0.32-4.0); Vitamin D 25-OH Total 25.5 ng/mL (>30)
[2021-05-29 09:28] LABS: RBC Urine 0 /HPF (0); WBC Urine 0 /HPF (0-4)
[2021-05-29 10:02] LABS: Creatinine Urine 84.14 mg/dL; Microalbum/Creatinine Ratio Ur 11.8 ug/mg cr
== END 2021-05-29 07:45 | disposition home or self-care (01) ==
LOC: HO.LAB 07:44
PROVIDERS: PCP Internal Medicine; Visit Provider Internal Medicine
DX: E55.9 Vitamin D deficiency, unspecified (principal); E11.9 Type 2 diabetes mellitus without complications; E78.00 Pure hypercholesterolemia, unspecified; I10 Essential (primary) hypertension; M10.9 Gout, unspecified
CPT/HCPCS: 36415; 80053; 80061; 81001; 82043; 82306; 83036; 84443; 84550; 85025

== ENCOUNTER → 2021-07-29 09:03 | Outpatient (BNVA) | payer OTHER, SELFPAY | PROVIDERS: PCP Internal Medicine; Visit Provider Dietitian, Registered | DX: E11.9 Type 2 diabetes mellitus without complications (principal) | CPT/HCPCS: 97803 ==

== ENCOUNTER → 2021-07-30 12:51 | Outpatient (BNVA) | payer OTHER, SELFPAY | PROVIDERS: PCP Internal Medicine; Visit Provider Nurse Practitioner Gerontology | DX: E11.42 Type 2 diabetes mellitus with diabetic polyneuropathy (principal); I12.9 Hypertensive chronic kidney disease with stage 1 through stage 4 chronic kidney disease, or unspecified chronic kidney disease; E78.5 Hyperlipidemia, unspecified; E78.00 Pure hypercholesterolemia, unspecified; E55.9 Vitamin D deficiency, unspecified; E66.9 Obesity, unspecified; F17.290 Nicotine dependence, other tobacco product, uncomplicated; Z68.37 Body mass index [BMI] 37.0-37.9, adult; Z79.4 Long term (current) use of insulin; Z79.84 Long term (current) use of oral hypoglycemic drugs | CPT/HCPCS: 82947; 99212 ==

== ENCOUNTER → 2021-09-04 11:44 | Outpatient (BNVA) | payer OTHER, SELFPAY | PROVIDERS: PCP Internal Medicine; Referring Provider Internal Medicine; Visit Provider Surgery | DX: K40.90 Unilateral inguinal hernia, without obstruction or gangrene, not specified as recurrent (principal) | CPT/HCPCS: 99212 ==

== ENCOUNTER 2021-10-18 07:32 | Outpatient (REF) | payer OTHER, SELFPAY ==
[2021-10-18 08:27] LABS: Estimated Average Glucose 163 mg/dL; Hemoglobin A1c % 7.3 %
[2021-10-18 08:49] LABS: Alanine Aminotransferase 26 U/L (0-40); Albumin Level 3.9 g/dL (3.5-5.0); Alkaline Phosphatase 58 U/L (39-117); Anion Gap 10 (12-20); Aspartate Amino Transferase 16 U/L (5-37); Bilirubin Total 0.3 mg/dL (0.0-1.0); Blood Urea Nitrogen 16 mg/dL (9-16); Calcium 9.7 mg/dL (8.4-10.2); Carbon Dioxide 27 mmol/L (22-29); Chloride 106 mmol/L (96-108); Cholesterol 173 mg/dL; Estimated Glomerular Filt Rate 57; Glucose Fasting 158 mg/dL (60-99); HDL Cholesterol 36 mg/dL; LDL Cholesterol Calculated 99 mg/dl; Potassium 4.3 mmol/L (3.3-5.1); Sodium 139 mmol/L (135-145); Total Protein 6.4 g/dL (6.5-8.0); Triglycerides 192 mg/dL
[2021-10-18 09:03] LABS: TSH reflex Free T4 0.79 uIU/mL (0.32-4.0); Vitamin D 25-OH Total 30.4 ng/mL (>30)
[2021-10-18 09:12] LABS: Appearance Urine CLEAR; Color Urine YELLOW; Glucose Urine UA >=1000 MG/DL (NEG); Leukocyte Esterase Urine NEG (NEG); Nitrite Urine NEG (NEG); PH 5.5 (5.0-8.0); Urine Blood NEG (NEG); Urine Ketones NEG (NEG); Urine Protein NEG (NEG-TRACE)
[2021-10-18 09:28] LABS: Mucus Urine TRACE /LPF; RBC Urine 0-2 /HPF (0); Squamous Epithelial Cell Urine TRACE /LPF; WBC Urine 0-2 /HPF (0-4)
[2021-10-18 09:38] LABS: Creatinine Urine 86.33 mg/dL; Microalbum/Creatinine Ratio Ur 10.4 ug/mg cr
== END 2021-10-18 07:33 | disposition home or self-care (01) ==
LOC: HO.LAB 07:32
PROVIDERS: PCP Internal Medicine; Visit Provider Internal Medicine
DX: E78.00 Pure hypercholesterolemia, unspecified (principal); E55.9 Vitamin D deficiency, unspecified; E11.9 Type 2 diabetes mellitus without complications
CPT/HCPCS: 36415; 80053; 80061; 81001; 82043; 82306; 83036; 84443

== ENCOUNTER → 2021-10-28 09:27 | Outpatient (BNVA) | payer OTHER, SELFPAY | PROVIDERS: PCP Internal Medicine; Visit Provider Dietitian, Registered | DX: E11.9 Type 2 diabetes mellitus without complications (principal) | CPT/HCPCS: 97803 ==

== ENCOUNTER 2021-11-08 11:22 | Day surgery (SDC) | payer OTHER, SELFPAY ==
[2021-11-01 12:26] VITALS: BMI 39.4
--- NOTE | 2021-11-07 08:09 | HO.ANESPROP2 ---
Documented by User: Cristiana Thornton NP 11/07/21 08:11 HPI - Anesthesia Eval Consult details Narrative: 61yo M for Left Hernia Repair Inguinal possible mesh s/p hernia repairs 04/2021 with GA-ETT 7.5 Chronic tachy PMFSH Active Problems Active Problems: All Active Problems (Updated 09/04/21 @ 12:14 by Mike Billy MD) Cough (Acute) COVID-19 (Acute) Contact dermatitis (Acute) Annual physical exam (Acute) Colon cancer screening (Acute) Left inguinal hernia (Acute) Incisional hernia (Acute) Recurrent umbilical hernia (Acute) Ventral hernia (Acute) Umbilical hernia (Acute) Diabetes mellitus (Acute) Benign essential hypertension (Acute) Pure hypercholesterolemia (Acute) Obesity (BMI 30-39.9) (Acute) Median nerve neuropathy (Acute) Tarsal tunnel syndrome of both lower extremities (Acute) Gout (Acute) Vitamin D deficiency (Acute) Degenerative arthritis of left shoulder region (Acute) Mild anemia (Acute) GERD without esophagitis (Acute) Past Medical History Medical History Tachycardia Family History Family History Father No problems noted. Mother No problems noted. Family history of problems with anesthesia: No Surgical History Surgical History History of umbilical hernia repair (~03/2021) Hx of cholecystectomy Hx of colonoscopy Hx of hernia repair Hx of rotator cuff surgery Hx of umbilical hernia repair History of Problems with Anesthesia: No Social History Social History Household Members: Family Housing: House Are you a primary laboratory animal care veterinarian to a significant other at home: No Do you presently have visiting nurse or other home services: No Alcohol intake: current Alcohol intake frequency: holidays/special occasions only Patient Tobacco Use Status: Former Tobacco user Quit Date: cigars 4 months ago Tobacco use type: Cigarette and Cigar Cigarettes Per Day: 2 Years Smoked: 30 Smoked in Last 30 Days: No Patient Interested in Nicotine Replacement: No Use of substances other than those prescribed or required for medical reasons: No Have you been hit, kicked, punched, or otherwise hurt by someone within the past year? If so, by whom?: No Are you DNR?: No Advance Directives: No Advance Directives Information Provided: Yes (mailed with instructions) Advance Directives on File: No Recently lost weight without trying: No Eating poorly because of decreased appetite: No Nutrition Risks: No Nutritional Risk service: No Current occupational status: unemployed Cognitive needs: No Hearing needs: Yes Vision needs: Yes Meds Allergies Allergy/AdvReac Type Severity Reaction Status Date / Time No Known Allergies Allergy Verified 11/01/21 12:16 Home Medications Medication Instructions Recorded Confirmed Last Taken Type multivitamin 1 tab PO DAILY 01/22/21 11/01/21 Unknown History [id number]-zwymgxfuw-nki C-Mn 500 cap PO 04/15/21 10/22/21 Unknown History mg-400 mg capsule Exam Exam Date and Time: November 07, 2021 0809 Height,Weight and Vital Signs: Height 5 ft 11 in Weight 128.197 kg Pertinent Lab Results Pertinent Lab Results: Laboratory Tests 05/29/21 10/18/21 07:58 07:44 WBC 9.5 Hgb 13.6 L Hct 42.1 Plt Count 245 Sodium 139 Potassium 4.3 Chloride 106 Carbon Dioxide 27 BUN 16 Creatinine 1.27 Narrative Narrative: EKG 03/2021 Vent. Rate : 109 BPM ? ? Atrial Rate : 109 BPM ?? P-R Int : 148 ms? QRS Dur : 082 ms ? ? QT Int : 336 ms ? ? ? P-R-T Axes : 073 073 054 degrees ?? QTc Int : 452 ms ? Sinus tachycardia Intra-ventricular conduction delay Otherwise normal ECG When compared with ECG of 05-NOV-2018 11:52, No significant change was found Assessment and Plan Assessment Anesthesia Assessment: Chart Reviewed Final Anesthetic Review Family History of Problems with Anesthesia: No History of Problems with Anesthesia: No Documented by User: Enma Cassidy MD 11/08/21 13:49 PMFSH Past Medical History Medical History Tachycardia Functional capacity: wheelchair bound Family History Family History Father No problems noted. Mother No problems noted. Surgical History Surgical History History of umbilical hernia repair (~03/2021) Hx of cholecystectomy Hx of colonoscopy Hx of hernia repair Hx of rotator cuff surgery Hx of umbilical hernia repair Social History Social History Household Members: Family Housing: House Are you a primary laboratory animal care veterinarian to a significant other at home: No Do you presently have visiting nurse or other home services: No Alcohol intake: current Alcohol intake frequency: holidays/special occasions only Patient Tobacco Use Status: Former Tobacco user Quit Date: cigars 4 months ago Tobacco use type: Cigarette and Cigar Cigarettes Per Day: 2 Years Smoked: 30 Smoked in Last 30 Days: No Patient Interested in Nicotine Replacement: No Use of substances other than those prescribed or required for medical reasons: No Have you been hit, kicked, punched, or otherwise hurt by someone within the past year? If so, by whom?: No Are you DNR?: No Advance Directives: No Advance Directives Information Provided: Yes (mailed with instructions) Advance Directives on File: No Recently lost weight without trying: No Eating poorly because of decreased appetite: No Nutrition Risks: No Nutritional Risk service: No Current occupational status: unemployed Cognitive needs: No Hearing needs: Yes Vision needs: Yes Meds Allergies Allergy/AdvReac Type Severity Reaction Status Date / Time No Known Allergies Allergy Verified 11/01/21 12:16 Home Medications Medication Instructions Recorded Confirmed Last Taken Type multivitamin 1 tab PO DAILY 01/22/21 11/01/21 Unknown History [id number]-vlidztrsa-[id number] C-Mn 500 cap PO 04/15/21 10/22/21 Unknown History mg-400 mg capsule Exam Airway Mallampati Class: III TM Dist: >3cm Neck ROM: Full Loose/Missing/Broken Teeth: No Heart: RRR Lungs: CTA Assessment and Plan Assessment Anesthesia Assessment: Anesthesia Plan Discussed Final Anesthetic Review NPO: Yes Final Preanesthetic Review: Meds/Allgs Chart Reviewed, Consent Obtained/Reviewed and Anes Risks/Benef Reviewed Patient Risk: Intermediate Procedure Risk: Low Anesthetic Plan Anesthetic Plan: GA Disposition: Standard PACU
[2021-11-08] VITALS (8 sets, daily range): BP systolic 130–163; BP diastolic 71–94; PULSE 102–110; RESP 16–18; TEMP 36.3–37; O2SAT 93–98
[2021-11-08] MEDS: Lactated Ringers 1,000 ML 100 ML IVCONT (12:15)
[2021-11-08 12:22] LABS: Glucose, Whole Blood 131 mg/dL (60-115)
--- NOTE | 2021-11-08 12:25 | MHC.SHP ---
Pre-Procedural Eval Section A Date of Service: 11/08/21 Section B Chief Complaint: hernia Details of Present Illness: has had a reducible left inguinal hernia, with increasing discomfort Relevant Family History (Specify if Yes): No Relevant Social History: None Present Medications: see Short Stay Collaborative assessment Medical History: Significant History ( diabetes, hypertension, high BMI) Allergies: Allergies Allergy/AdvReac Type Severity Reaction Status Date / Time No Known Allergies Allergy Verified 11/01/21 12:16 Review of Systems Sugical H&P ROS: Negative: Constitution, Cardiovascular, Respiratory, Neurological, Psychiatric, Hem-Onc, Allergic/Immunologic, Gastrointestinal, Genitourinary, Musculoskeletal, Integumentary, Endocrine and Eyes/Ears/Nose/Throat Exam Surgical H&P Exam: Normal: HEENT, Normal: Heart, Normal: Lungs, Normal: Extremities, Normal: Skin and Normal: Neurological and Significant Findings: Abdomen ( left inguinal hernia, obvious with Valsalva) Plan Diagnosis/Plan: Unchanged I have reviewed the history and physical and performed a pertinent physical examination on my patient. No changes have occurred unless specified.
--- NOTE | 2021-11-08 15:54 | P.OP_ITS ---
Operative Note Operative Note Date of Service: 11/08/21 Narrative: Preop diagnosis: Left inguinal hernia Postop diagnosis: Left inguinal hernia indirect Procedure: Repair of a left hernia with mesh Surgeon: Mike Billy MD Marine Steamfitter: veronica Lynch student The patient is a 61-year-old male with a reducible mass of the left groin consistent the left inguinal hernia. This was confirmed on the CT scan He understood the technique of repair with mesh. He was aware of the risks, benefits, and alternatives He was brought to the operating room. He was placed supine under general anesthesia via laryngeal mask airway. The area of the left groin was prepped and draped in the usual sterile fashion. A surgical time-out was done. The patient received cefazolin 2 g IV preoperatively I infiltrated the planned line of incision using lidocaine 1%. I made an incision on the skin along animaginary line from the anterior superior iliac spine to the pubic ramus using blade 15.. This was carried down through the full-thickness of the skin and subcutaneous fat electrocautery. Please note the patient had this large amount of subcutaneous fat from his central obesity. We had to go through a thick amount of fat before we able to identify the external oblique aponeurosis. Once the external oblique aponeurosis was identified, I bluntly dissected this. I exposed the external ring. I made an incision on the external ring overlying the inguinal canal. I then applied hemostats on the edges of the divided aponeurosis. I bluntly dissected the underside to create a pocket for the mesh. The inguinal canal was examined and there was note of a large hernia containing fat with. There were no bowel loops seen. I bluntly dissected the spermatic cord and its contents along with the hernia until was able to pass a Neva drain around this. This was achieved with some difficulty in view of the patient's habitus as well as with the large amount of fat. I was able to then pass a Neva drain around the spermatic cord and its contents. I bluntly dissected the large fat containing hernia off of the rest of the cord contents. I was then able to visualize the vas deferens and the accompanying vessels. These were protected during the dissection. I continued to separate the hernia from the cord until I was able to reduce this through the internal ring. This was therefore an indirect hernia. I reinforced the internal ring with a large size Prolene plug. The plug was secured with Prolene 2 sutures to the shelving edge of the inguinal and laterally and the internal oblique superiorly and medially. Pain for the floor of the canal with a keyhole mesh. The tails of the mesh were passed around the cord at the level of the internal ring and the tails were secured toegether with Prolene 2 sutures. I secured this mesh with Prolene 2-0 sutures to the shelving edge of the inguinal ligament laterally and the internal oblique superiorly and medially. I copiously irrigated and removed the [place] drain. I observed for hemostasis stasis. Once hemostasis was ensured, I reapposed the external oblique aponeurosis with a running Dexon 2-0 stitch to re-create the external ring. I reapposed the thick subcutaneous layer with Dexon 3-0 interrupted sutures. Skin closure was achieved with Dexon 4-0 subcuticular 9 stitch. The incision was infiltrated with Marcaine 0.5% for postop MIGUEL. Steri-Strips and dressings were applied and the procedure was completed . The patient tolerated procedure well. There were no complications noted. Initial and final counts of sponges and instruments were correct. Estimated blood loss was about 30 cc. The patient was extubated without difficulty and transferred to the recovery room with stable vital signs.
[2021-11-08] MEDS: oxyCODONE HCl Immed Release 5 MG TABLET PO (16:17)
--- NOTE | 2021-11-08 16:46 | PC.NURSE ---
patient offered to void. reports no urge to void at this time.
--- NOTE | 2021-11-08 17:59 | PC.NURSE ---
1748 oob ambulated a few steps. dressed at bedside. dressing left groin c/d/i. voided in bathroom. ice pack to groin area
== END 2021-11-08 17:57 | disposition home or self-care (01) ==
PROVIDERS: PCP Internal Medicine; Visit Provider Surgery
PROC: (CPT 49505; principal; 2021-11-08 14:00)
DX: K40.90 Unilateral inguinal hernia, without obstruction or gangrene, not specified as recurrent (principal); K21.9 Gastro-esophageal reflux disease without esophagitis; I10 Essential (primary) hypertension; E11.9 Type 2 diabetes mellitus without complications; D64.9 Anemia, unspecified; M10.9 Gout, unspecified; E78.00 Pure hypercholesterolemia, unspecified; R00.0 Tachycardia, unspecified; E55.9 Vitamin D deficiency, unspecified; Z87.19 Personal history of other diseases of the digestive system; Z79.1 Long term (current) use of non-steroidal anti-inflammatories (NSAID); Z79.84 Long term (current) use of oral hypoglycemic drugs; Z79.899 Other long term (current) drug therapy; Z90.49 Acquired absence of other specified parts of digestive tract; Z87.891 Personal history of nicotine dependence
CPT/HCPCS: 49505; 82947; C1781; J0131; J0690; J1100; J2250; J2405; J3010

== ENCOUNTER → 2021-12-31 08:59 | Outpatient (BNVA) | payer OTHER, SELFPAY | PROVIDERS: PCP Internal Medicine; Visit Provider Dietitian, Registered | DX: E11.9 Type 2 diabetes mellitus without complications (principal); Z71.3 Dietary counseling and surveillance | CPT/HCPCS: 97803 ==

== ENCOUNTER 2022-02-19 07:50 | Outpatient (REF) | payer OTHER, SELFPAY ==
[2022-02-19 08:09] LABS: MANUAL DIFF FLAG NO
[2022-02-19 08:23] LABS: Basophils Percent Auto 0.4 % (0-2); Eosinophils Absolute Auto 0.2 X10*3/uL (0.0-0.4); Eosinophils Percent Auto 2.2 % (0-4); Hematocrit 42.1 % (42.0-52.0); Hemoglobin 13.7 g/dl (14.0-18.0); Imm Gran Abs Auto 0.04 X10*3/uL (0.00-0.03); Imm Gran Pct Auto 0.4 % (0.0-0.4); Lymphocytes Absolute Auto 2.9 X10*3/uL (1.2-4.9); Lymphocytes Percent Auto 30.1 % (20-40); Mean Corpuscular HGB Conc 32.5 g/dl (31.0-36.0); Mean Corpuscular Hemoglobin 27.2 pg (27.0-33.0); Mean Corpuscular Volume 83.5 fL (80.0-98.0); Mean Platelet Volume 10.1 fL (9.4-12.4); Monocytes Absolute Auto 1.1 X10*3/uL (0.1-1.2); Monocytes Percent Auto 11.3 % (2-11); Neutrophils Absolute Auto 5.3 x10*3/uL (2.0-8.3); Neutrophils Percent Auto 55.6 % (45-73); Platelet Count 224 X10*3/uL (160-400); Red Blood Count 5.04 X10*6/uL (4.60-5.80); Red Cell Distribution Width 14.1 % (11.0-16.0); White Blood Count 9.6 X10*3/uL (4.8-10.8)
[2022-02-19 08:29] LABS: Estimated Average Glucose 163 mg/dL; Hemoglobin A1c % 7.3 %
[2022-02-19 09:04] LABS: Alanine Aminotransferase 25 U/L (0-40); Albumin Level 4.1 g/dL (3.5-5.0); Alkaline Phosphatase 57 U/L (39-117); Anion Gap 14 (12-20); Aspartate Amino Transferase 17 U/L (5-37); Bilirubin Total 0.4 mg/dL (0.0-1.0); Blood Urea Nitrogen 20 mg/dL (9-16); Calcium 9.5 mg/dL (8.4-10.2); Carbon Dioxide 25 mmol/L (22-29); Chloride 105 mmol/L (96-108); Cholesterol 168 mg/dL; Estimated Glomerular Filt Rate 57; Glucose Fasting 147 mg/dL (60-99); HDL Cholesterol 34 mg/dL; LDL Cholesterol Calculated 81 mg/dl; Sodium 140 mmol/L (135-145); Total Protein 6.3 g/dL (6.5-8.0); Triglycerides 265 mg/dL
[2022-02-19 09:23] LABS: Appearance Urine Clear; Color Urine Yellow; Glucose Urine UA >=1000 mg/dL (Negative); Leukocyte Esterase Urine Negative (Negative); Nitrite Urine Negative (Negative); PH 5.5 (5.0-9.0); Specific Gravity - Urine >= 1.030 (1.005-1.025); UMIC TRIGGER UACC YES; Urine Blood Negative (Negative); Urine Ketones Negative (Negative); Urine Protein Negative (Neg-Trace)
[2022-02-19 09:25] LABS: TSH reflex Free T4 0.67 uIU/mL (0.32-4.0); Vitamin D 25-OH Total 36.1 ng/mL (>30)
[2022-02-19 09:31] LABS: Bacteria Urine None Seen (None Seen); Hyaline Casts Urine 0-2 /LPF (0-2); RBC Urine 0-2 /HPF (0-2); Squamous Epithelial Cell Urine 0-2 /HPF (0-2); WBC Urine 0-5 /HPF (0-5)
[2022-02-19 09:52] LABS: Creatinine Urine 91.22 mg/dL; Microalbum/Creatinine Ratio Ur 8.7 ug/mg cr
== END 2022-02-19 07:51 | disposition home or self-care (01) ==
LOC: HO.LAB 07:50
PROVIDERS: PCP Internal Medicine; Visit Provider Internal Medicine
DX: I10 Essential (primary) hypertension (principal); E55.9 Vitamin D deficiency, unspecified; E78.00 Pure hypercholesterolemia, unspecified; E11.9 Type 2 diabetes mellitus without complications
CPT/HCPCS: 36415; 80053; 80061; 81001; 82043; 82306; 83036; 84443; 85025

== ENCOUNTER → 2022-04-02 08:58 | Outpatient (BNVA) | payer OTHER, SELFPAY | PROVIDERS: PCP Internal Medicine; Visit Provider Dietitian, Registered | DX: E11.9 Type 2 diabetes mellitus without complications (principal) | CPT/HCPCS: 97803 ==

== ENCOUNTER 2022-07-17 07:36 | Outpatient (REF) | payer OTHER, SELFPAY ==
[2022-07-17 11:14] LABS: MANUAL DIFF FLAG NO
[2022-07-17 11:26] LABS: Basophils Absolute Auto 0.1 X10*3/uL (0.0-0.2); Basophils Percent Auto 0.7 % (0-2); Eosinophils Absolute Auto 0.6 X10*3/uL (0.0-0.4); Eosinophils Percent Auto 5.4 % (0-4); Hematocrit 44.2 % (42.0-52.0); Imm Gran Abs Auto 0.03 X10*3/uL (0.00-0.03); Imm Gran Pct Auto 0.3 % (0.0-0.4); Lymphocytes Absolute Auto 2.9 X10*3/uL (1.2-4.9); Lymphocytes Percent Auto 27.8 % (20-40); Mean Corpuscular HGB Conc 31.7 g/dl (31.0-36.0); Mean Corpuscular Hemoglobin 27.2 pg (27.0-33.0); Mean Corpuscular Volume 85.8 fL (80.0-98.0); Mean Platelet Volume 11.2 fL (9.4-12.4); Monocytes Percent Auto 9.3 % (2-11); Neutrophils Absolute Auto 5.9 x10*3/uL (2.0-8.3); Neutrophils Percent Auto 56.5 % (45-73); Platelet Count 272 X10*3/uL (160-400); Red Blood Count 5.15 X10*6/uL (4.60-5.80); Red Cell Distribution Width 14.4 % (11.0-16.0); White Blood Count 10.5 X10*3/uL (4.8-10.8)
[2022-07-17 11:32] LABS: Appearance Urine Clear; Color Urine Yellow; Glucose Urine UA >=1000 mg/dL (Negative); Leukocyte Esterase Urine Negative (Negative); Nitrite Urine Negative (Negative); PH 5.5 (5.0-9.0); Specific Gravity - Urine 1.025 (1.005-1.025); UMIC TRIGGER UACC YES; Urine Blood Negative (Negative); Urine Ketones Negative (Negative); Urine Protein Negative (Neg-Trace)
[2022-07-17 11:38] LABS: Bacteria Urine None Seen (None Seen); Hyaline Casts Urine 0-2 /LPF (0-2); RBC Urine 0-2 /HPF (0-2); Squamous Epithelial Cell Urine 0-2 /HPF (0-2); WBC Urine 0-5 /HPF (0-5)
[2022-07-17 11:56] LABS: Creatinine Urine 72.43 mg/dL; Microalbumin Urine < 5.0 mg/L
[2022-07-17 11:56] LABS: Alanine Aminotransferase 15 U/L (0-40); Albumin Level 4.1 g/dL (3.5-5.0); Alkaline Phosphatase 57 U/L (39-117); Anion Gap 14 (12-20); Aspartate Amino Transferase 13 U/L (5-37); Bilirubin Total 0.5 mg/dL (0.0-1.0); Blood Urea Nitrogen 25 mg/dL (9-16); Calcium 9.7 mg/dL (8.4-10.2); Carbon Dioxide 28 mmol/L (22-29); Chloride 106 mmol/L (96-108); Estimated Glomerular Filt Rate 53; Glucose Fasting 149 mg/dL (60-99); Potassium 4.9 mmol/L (3.3-5.1); Sodium 143 mmol/L (135-145); Total Protein 6.2 g/dL (6.5-8.0)
[2022-07-17 12:01] LABS: Estimated Average Glucose 148 mg/dL; Hemoglobin A1c % 6.8 %
[2022-07-17 12:04] LABS: TSH reflex Free T4 0.87 uIU/mL (0.32-4.0); Vitamin D 25-OH Total 36.9 ng/mL (>30)
== END 2022-07-17 07:37 | disposition home or self-care (01) ==
LOC: HO.HMGCLDS 07:36
PROVIDERS: PCP Internal Medicine; Visit Provider Internal Medicine
DX: E78.00 Pure hypercholesterolemia, unspecified (principal); E11.9 Type 2 diabetes mellitus without complications; E55.9 Vitamin D deficiency, unspecified; I10 Essential (primary) hypertension
CPT/HCPCS: 36415; 80053; 81001; 82043; 82306; 83036; 84443; 85025

== ENCOUNTER → 2022-10-07 11:25 | Outpatient (BNVA) | payer OTHER, SELFPAY | PROVIDERS: PCP Internal Medicine; Visit Provider Dietitian, Registered | DX: E11.9 Type 2 diabetes mellitus without complications (principal) | CPT/HCPCS: 97803 ==

== ENCOUNTER 2022-11-14 08:34 | Outpatient (REF) | payer OTHER, SELFPAY ==
[2022-11-14 11:20] LABS: MANUAL DIFF FLAG NO
[2022-11-14 11:35] LABS: Basophils Percent Auto 0.4 % (0-2); Eosinophils Absolute Auto 0.2 X10*3/uL (0.0-0.4); Eosinophils Percent Auto 1.6 % (0-4); Hematocrit 43.4 % (42.0-52.0); Hemoglobin 13.8 g/dl (14.0-18.0); Imm Gran Abs Auto 0.02 X10*3/uL (0.00-0.03); Imm Gran Pct Auto 0.2 % (0.0-0.4); Lymphocytes Absolute Auto 2.6 X10*3/uL (1.2-4.9); Lymphocytes Percent Auto 27.6 % (20-40); Mean Corpuscular HGB Conc 31.8 g/dl (31.0-36.0); Mean Corpuscular Hemoglobin 27.2 pg (27.0-33.0); Mean Corpuscular Volume 85.6 fL (80.0-98.0); Mean Platelet Volume 10.8 fL (9.4-12.4); Monocytes Absolute Auto 0.8 X10*3/uL (0.1-1.2); Neutrophils Absolute Auto 5.7 x10*3/uL (2.0-8.3); Neutrophils Percent Auto 61.2 % (45-73); Platelet Count 268 X10*3/uL (160-400); Red Blood Count 5.07 X10*6/uL (4.60-5.80); Red Cell Distribution Width 14.2 % (11.0-16.0); White Blood Count 9.3 X10*3/uL (4.8-10.8)
[2022-11-14 11:43] LABS: Appearance Urine Clear; Color Urine Yellow; Glucose Urine UA >=1000 mg/dL (Negative); Leukocyte Esterase Urine Negative (Negative); Nitrite Urine Negative (Negative); PH 6.5 (5.0-9.0); Specific Gravity - Urine >= 1.030 (1.005-1.025); UMIC TRIGGER UACC YES; Urine Blood Negative (Negative); Urine Ketones Negative (Negative); Urine Protein Negative (Neg-Trace)
[2022-11-14 11:47] LABS: Bacteria Urine None Seen (None Seen); Hyaline Casts Urine 0-2 /LPF (0-2); RBC Urine 0-2 /HPF (0-2); Squamous Epithelial Cell Urine 0-2 /HPF (0-2); WBC Urine 0-5 /HPF (0-5)
[2022-11-14 12:09] LABS: Estimated Average Glucose 134 mg/dL; Hemoglobin A1c % 6.3 %
[2022-11-14 12:18] LABS: Creatinine Urine 85.18 mg/dL; Microalbum/Creatinine Ratio Ur 5.8 ug/mg cr
[2022-11-14 12:54] LABS: Alanine Aminotransferase 19 U/L (0-40); Albumin Level 3.8 g/dL (3.5-5.0); Alkaline Phosphatase 50 U/L (39-117); Anion Gap 9 (12-20); Aspartate Amino Transferase 17 U/L (5-37); Bilirubin Total 0.5 mg/dL (0.0-1.0); Blood Urea Nitrogen 21 mg/dL (9-16); Calcium 9.7 mg/dL (8.4-10.2); Carbon Dioxide 30 mmol/L (22-29); Chloride 105 mmol/L (96-108); Cholesterol 135 mg/dL; Estimated Glomerular Filt Rate > 60; Glucose Fasting 151 mg/dL (60-99); HDL Cholesterol 37 mg/dL; LDL Cholesterol Calculated 74 mg/dl; Potassium 4.8 mmol/L (3.3-5.1); Sodium 139 mmol/L (135-145); Total Protein 6.3 g/dL (6.5-8.0); Triglycerides 120 mg/dL; Uric Acid 6.7 mg/dL (3.4-7.0)
[2022-11-14 13:14] LABS: TSH reflex Free T4 0.79 uIU/mL (0.32-4.0); Vitamin D 25-OH Total 57.3 ng/mL (>30)
== END 2022-11-14 08:35 | disposition home or self-care (01) ==
LOC: HO.HMGCLDS 08:34
PROVIDERS: PCP Internal Medicine; Visit Provider Internal Medicine
DX: E78.00 Pure hypercholesterolemia, unspecified (principal); E11.9 Type 2 diabetes mellitus without complications; M10.9 Gout, unspecified; I10 Essential (primary) hypertension; E55.9 Vitamin D deficiency, unspecified; R30.0 Dysuria
CPT/HCPCS: 36415; 80053; 80061; 81001; 82043; 82306; 83036; 84443; 84550; 85025

== ENCOUNTER 2022-12-29 16:58 | Outpatient (AMB) | payer OTHER, SELFPAY ==
[2022-12-29 17:04] VITALS: BP 138/86; PULSE 110; O2SAT 96; BMI 33.2
--- NOTE | 2022-12-29 17:04 | MHC.PC.OV ---
Vital Signs 12/29/22 17:04 Height 5 ft 11 in Weight 238 lb BMI 33.2 BP 138/86 Blood Pressure Location Lt brachial Position Sitting Pulse 110 H Pulse Source Pulse Oximeter Pulse Oximetry (%) 96 Oxygen Delivery Method Room Air Intake Visit Reasons: DM, hyperlipidemia, HTN, OA Filter Bed Placer Required: No Accompanied by: Self / Same As Patient Allergies No Known Allergies Allergy (Verified 12/29/22 17:33) Medication List - Last Reconciled 12/29/22 by Rosendo Chiang MD cholecalciferol (vitamin D3) 50 mcg PO DAILY 90 days codeine-guaifenesin 6.3-100 mg/5 mL 10 mL PO Q4-6H PRN cyclobenzaprine 10 mg PO TID PRN 30 days dulaglutide (Trulicity) 4.5 mg (0.5 mL) subcut QWEEK 12 weeks empagliflozin (Jardiance) 25 mg PO QAM flash glucose scanning reader (VideumStyle Reinier 14 Day Bryan) As directed flash glucose sensor (VideumStyle Reinier 2 Sensor kit) As directed every 2 weeks [id number] C-Mn 500-400 mg caps PO ibuprofen 600 mg PO Q6H PRN ibuprofen 600 mg PO Q6H PRN ketoconazole 2% 1 appl topical BID PRN lisinopril 10 mg PO DAILY 90 days metformin 1,000 mg PO BID 90 days multivitamin 1 tab PO DAILY omeprazole 20 mg PO DAILY 90 days oxycodone-acetaminophen 5-325 mg (Percocet) 1 tab PO Q4-6H PRN pioglitazone 15 mg PO DAILY 90 days simvastatin 20 mg PO BEDTIME 90 days Tobacco use date assessed: 12/29/22 Dental Screening Dental Screen Date: 12/29/22 Did you have a dental visit in the last 12 months?: Yes Did you have a dental problem in the last 6 months where you did not have access to dental care?: No Was dental information given to patient?: Patient has dentist HPI DM, hyperlipidemia, HTN, OA HPI Details Patient comes in today for his follow up visit States that he feels okay Has been able to lose some weight again since his last visit - states that his goal is to get down to 200 pounds He denies any headaches or dizziness Denies any chest pains, no SOB No nausea/vomiting, no abdominal pain No change in bowel habits noted States that he would like to get Rx for a new glucometer - prefers to get the Freestyle Lite Had his follow up labs done a couple of months ago - to discuss his results [facility] Medical History Benign essential hypertension Degenerative arthritis of left shoulder region Diabetes mellitus GERD without esophagitis Gout Incisional hernia Left inguinal hernia Median nerve neuropathy Mild anemia Obesity (BMI 30-39.9) Pure hypercholesterolemia Recurrent umbilical hernia Tachycardia Tarsal tunnel syndrome of both lower extremities Umbilical hernia Ventral hernia Vitamin D deficiency Surgical History History of left inguinal hernia repair History of umbilical hernia repair (~03/2021) Hx of cholecystectomy Hx of colonoscopy Hx of hernia repair Hx of rotator cuff surgery Hx of umbilical hernia repair Family History Father No problems noted. Mother No problems noted. Social History Household Members: Family Housing: House Are you a primary career development counselor to a significant other at home: No Do you presently have visiting nurse or other home services: No Alcohol intake: current Alcohol intake frequency: holidays/special occasions only Patient Tobacco Use Status: Former Tobacco user Quit Date: cigars 4 months ago Tobacco use type: Cigarette and Cigar Cigarettes Per Day: 2 Years Smoked: 30 e-Cigarette/Vaping Use: Never Used service: No Current occupational status: unemployed Cognitive needs: No Hearing needs: Yes Vision needs: Yes Questionnaire PHQ-9 Over the last 2 weeks, how often have you been bothered by any of the following problems? 1. Little interest or pleasure in doing things: not at all 2. Feeling down, depressed, or hopeless: not at all 3. Trouble falling or staying asleep, or sleeping too much: not at all 4. Feeling tired or having little energy: not at all 5. Poor appetite or overeating: not at all 6. Feeling bad about yourself - or that you are a failure or have let yourself or your family down: not at all 7. Trouble concentrating on things, such as reading the newspaper or watching television: not at all 8. Moving or speaking so slowly that other people could have noticed. Or the opposite - being so fidgety or restless that you have been moving around a lot more than usual: not at all 9. Thoughts that you would be better off or of hurting yourself in some way: not at all Total score: 0 Depression Screening Interpretation: Negative 36345 - PHQ-9 Billing: Yes Source: Developed by Drs. Nii Blevins, Heydi Fuentes, Ayo Escamilla and colleagues, with an educational matt from [employer]. Thrive Questionnaire Date Thrive assessed: 12/29/22 I am a: Patient What is your living situation today?: I have a steady place to live Within the past 12 months, did the food you bought not last and you didn't have the money to get more?: Never true Within the past 12 months, did you worry whether your food would run out before you got money to buy more?: Never true Do you have trouble paying for medicines?: No Do you have trouble getting transportation to medical appointments?: No Do you have trouble paying your heating and electricity bill?: No Do you have trouble taking care of your child, family member or friend?: No Do you have trouble with day-to-day activities such as bathing, preparing meals, shopping, managing finances, etc.?: No Are you currently unemployed and looking for a job?: No Are you interested in more education?: No Please select the resources that you would like help with: None Currently or been in a relationship where the following occur: no concerns reported AUDIT C Alcohol Use Questionnaire (AUDIT-C) 1. How often do you have a drink containing alcohol?: Never 2. How many drinks containing alcohol do you have on a typical day when you are drinking?: 1 or 2 3. How often do you have six or more drinks on one occasion?: Never Total Score: 0 Score Reviewed/Action Taken: Yes THEO-7 AMB Questionnaire THEO-7 Date THEO - 7 assessed: 12/29/22 Feeling nervous, anxious, or on edge: 0 = Not at all Not being able to stop or control worryin = Not at all Worrying too much about different things: 0 = Not at all Trouble relaxin = Not at all Being so restless that it is hard to sit still: 0 = Not at all Becoming easily annoyed or irritable: 0 = Not at all Feeling afraid as if something awful might happen: 0 = Not at all Total THEO-7 score (0-4 normal; 5-9 mild; 10-14 moderate; 15-21 severe): 0 Source: Developed by Drs. Nii Blevins, Heydi Fuentes, Ayo Escamilla and colleagues, with an educational matt from [employer]. Review of Systems Const Denies fatigue, Denies fever(s) and Denies headache(s) ENT Denies dysphagia, Denies dizziness, Denies otalgia, Denies headache(s) and Denies sore throat Card Denies chest pain, Denies palpitations and Denies dyspnea Resp Denies cough and Denies dyspnea GI Denies abdominal pain, Denies constipation, Denies dysphagia, Denies heartburn, Denies diarrhea, Denies nausea and Denies vomiting Denies dysuria, Denies nocturia and Denies urinary frequency Neuro Denies dizziness and Denies headache(s) Endo Denies fatigue and Denies palpitations Physical exam (Primary Care) Vital Signs: Last Vital Signs Pulse 110 H 12/29/22 17:04 BP 138/86 12/29/22 17:04 Pulse Ox 96 12/29/22 17:04 Oxygen Delivery Method Room Air 12/29/22 17:04 BMI result Body Mass Index 33.2 Tobacco/Smoking Status: Tobacco use Status Tobacco use date assessed 12/29/22 12/29/22 17:12 Patient Tobacco Use Status Former Tobacco user 12/29/22 17:12 Tobacco use type Cigarette,Cigar 12/29/22 17:12 e-Cigarette/Vaping Use Never Used 12/29/22 17:12 PHQ-9: PHQ-9 Score PHQ-9: Total score 0 12/29/22 17:12 Depression Screening Interpretation: Negative Thrive Assessment: Date of Thrive Assessment Date Thrive assessed 12/29/22 12/29/22 17:12 Currently or been in a relationship where the following occur: no concerns reported Const General: no acute distress and alert HENMT Ears: TM's normal bilaterally and EAC's normal Throat: Yes posterior oropharynx normal and Yes tonsils normal (no TP congestion noted) Neck Neck: Yes no lymphadenopathy and Yes supple Resp Auscultation: clear to auscultation bilaterally, no rales and no wheezes Cardio Rate: regular rate Rhythm: regular rhythm Heart sounds: no murmurs GI Palpation (GI): Soft to palpation and nontender Auscultation: normal bowel sounds Back/Spine/Pelvis Thoracic/Lumbar Spine: lumbar spinal tenderness (mild) Extrem General: Yes no clubbing, cyanosis or edema Results Reviewed Results Reviewed: Laboratory Tests 11/14/22 11/14/22 11/14/22 08:47 08:47 08:47 WBC 9.3 Hgb 13.8 L Hct 43.4 Plt Count 268 Sodium 139 Potassium 4.8 Creatinine 1.18 Estimated GFR > 60 Fasting Glucose 151 H Hemoglobin A1c % 6.3 Uric Acid 6.7 Calcium 9.7 AST 17 ALT 19 Triglycerides 120 Cholesterol 135 LDL Cholesterol, Calc 74 HDL Cholesterol 37 25-OH Vitamin D Total 57.3 TSH 0.79 Ur Specific [place] Urine Protein Urine Glucose (UA) Urine Blood Microalb/Creat Ratio 11/14/22 11/14/22 08:50 08:50 WBC Hgb Hct Plt Count Sodium Potassium Creatinine Estimated GFR Fasting Glucose Hemoglobin A1c % Uric Acid Calcium AST ALT Triglycerides Cholesterol LDL Cholesterol, Calc HDL Cholesterol 25-OH Vitamin D Total TSH Ur Specific [place] >= 1.030 H Urine Protein Negative Urine Glucose (UA) >=1000 H Urine Blood Negative Microalb/Creat Ratio 5.8 Assessment and Plan Assessment & Plan (1) Diabetes mellitus: Code(s): E11.9 - Type 2 diabetes mellitus without complications Qualifiers: Diabetes mellitus type: type 2 Diabetes mellitus corn cutter insulin use: without care home use Diabetes mellitus complication status: without complication Qualified Code(s): E11.9 - Type 2 diabetes mellitus without complications Plan: HgbA1c has improved to 6.3% on his recent labs from a couple of months ago (was at 6.8% a few months ago) - goal is <7.0% Reinforced diabetic diet Continue Metformin 1000 mg BID, Jardiance 25 mg QD and Trulicity 4.5 mg SQ once a week; is also on Pioglitazone 15 mg QD but would like to try cutting back on his diabetic medicines to see if he can come off some of them Will have him HOLD his Pioglitazone 15 mg QD for the next few months Follow up with endocrinology as scheduled Rx for Freestyle Lite meter and test strips Rx sent to the pharmacy, per patient's request (2) Benign essential hypertension: Code(s): I10 - Essential (primary) hypertension Plan: Reinforced low sodium diet - goal is systolic BP of at least 130 mm or less Continue Lisinopril 10 mg QD (3) Pure hypercholesterolemia: Code(s): E78.00 - Pure hypercholesterolemia, unspecified Plan: Results of his labs done a couple of months ago reviewed and discussed with patient Reinforced low cholesterol diet Continue Simvastatin 20 mg QD Will recheck labs in 4 months for follow-up (4) GERD without esophagitis: Code(s): K21.9 - Gastro-esophageal reflux disease without esophagitis Plan: Dietary restrictions reinforced Continue Omeprazole 20 mg QD (5) Vitamin D deficiency: Code(s): E55.9 - Vitamin D deficiency, unspecified Plan: Corrected - continue Vitamin D3 2000 units QD (6) Gout: Code(s): M10.9 - Gout, unspecified Qualifiers: Gout site: unspecified site Gout etiology: idiopathic Chronicity: unspecified Qualified Code(s): M10.00 - Idiopathic gout, unspecified site Plan: Patient reports no recent acute gout flare ups Reinforced low purine diet - serum uric acid remains normal when checked last year (7) Tarsal tunnel syndrome of both lower extremities: Code(s): G57.53 - Tarsal tunnel syndrome, bilateral lower limbs Plan: Patient continues to report frequent pain in his feet and legs bilaterally, especially at night To consider Gabapentin Rx if his symptoms continue to persist or worsen (8) Obesity (BMI 30-39.9): Code(s): E66.9 - Obesity, unspecified Plan: Reinforced diet/exercise as tolerated /lose weight Plan Follow up in 4 months Orders: Orders Complete Blood Count Auto Diff 4 Months I10 - Essential (primary) hypertension Comprehensive [place]. Panel Fast 4 Months E78.00 - Pure hypercholesterolemia, unspecified Lipid Panel 4 Months E78.00 - Pure hypercholesterolemia, unspecified Microalbumin, Random (w Creat) 4 Months E11.9 - Type 2 diabetes mellitus without complications TSH reflex Free T4 4 Months E78.00 - Pure hypercholesterolemia, unspecified UA CC w/rflx Micro + Cult 4 Months R30.0 - Dysuria Vitamin D 25-OH Total 4 Months E55.9 - Vitamin D deficiency, unspecified Hemoglobin A1c 4 Months E11.9 - Type 2 diabetes mellitus without complications Medications: New blood-glucose meter (FreeStyle Lite Meter kit) As directed 1 ea 0RF E11.9 - Type 2 diabetes mellitus without complications blood sugar diagnostic (FreeStyle Lite Strips) As directed once a day 100 ea 12RF E11.9 - Type 2 diabetes mellitus without complications On Hold pioglitazone Hold Comment: Doctor's Order 15 mg PO DAILY 90 days 90 tabs 1RF Coding Level of Care Code Est Pt Level 4 (07184) Diagnoses Diabetes mellitus E11.9 Diabetes mellitus type: type 2 Diabetes mellitus corn cutter insulin use: without care home use Diabetes mellitus complication status: without complication Benign essential hypertension I10 Pure hypercholesterolemia E78.00 GERD without esophagitis K21.9 Vitamin D deficiency E55.9 Gout M10.00 Gout site: unspecified site Gout etiology: idiopathic Chronicity: unspecified Tarsal tunnel syndrome of both lower extremities G57.53 Obesity (BMI 30-39.9) E66.9
== END 2022-12-29 18:02 | disposition home or self-care (01) ==
PROVIDERS: PCP Internal Medicine; Visit Provider Internal Medicine
DX: E11.9 Type 2 diabetes mellitus without complications (principal); I10 Essential (primary) hypertension; K21.9 Gastro-esophageal reflux disease without esophagitis; E55.9 Vitamin D deficiency, unspecified; E78.00 Pure hypercholesterolemia, unspecified; M10.00 Idiopathic gout, unspecified site; G57.53 Tarsal tunnel syndrome, bilateral lower limbs; E66.9 Obesity, unspecified
CPT/HCPCS: 99214

== ENCOUNTER 2023-04-07 11:39 | Outpatient (AMB) | payer OTHER, SELFPAY ==
[2023-04-07 11:44] VITALS: BMI 33.6
--- NOTE | 2023-04-07 11:44 | A.OFFVIS_ITS ---
Intake VS Expanded 04/07/23 11:44 Height 5 ft 11 in Weight 240 lb 11.916 oz BMI 33.6 Intake Visit Reasons: DM Allergies No Known Allergies Allergy (Verified 12/29/22 17:33) HPI Nutrition Presentation Details Pt presents for MNT f/u for T2DM Pt reports doing well, utilizing glucos sesnor which shows his BG are 79 % within target and 21 % above 180 Pt reports working on reducing on fried foods, and empty calorie foods as best as possible. Pt motivated to continue working on reducing empty calorie foods takes daily probiotic Most Recent Diabetes Results: Microalb/Creat Ratio 5.8 ug/mg cr 11/14/22 Cholesterol 135 mg/dL 11/14/22 HDL Cholesterol 37 mg/dL 11/14/22 Triglycerides 120 mg/dL 11/14/22 Creatinine 1.18 mg/dL (0.5-1.4) 11/14/22 Blood Urea Nitrogen 21 mg/dL (9-16) H 11/14/22 Sodium 139 mmol/L (135-145) 11/14/22 Potassium 4.8 mmol/L (3.3-5.1) 11/14/22 Chloride 105 mmol/L (96-108) 11/14/22 Carbon Dioxide 30 mmol/L (22-29) H 11/14/22 Calcium 9.7 mg/dL (8.4-10.2) 11/14/22 AST 17 U/L (5-37) 11/14/22 ALT 19 U/L (0-40) 11/14/22 Total Protein 6.3 g/dL (6.5-8.0) L 11/14/22 Albumin 3.8 g/dL (3.5-5.0) 11/14/22 [facility] Medical History Benign essential hypertension Degenerative arthritis of left shoulder region Diabetes mellitus GERD without esophagitis Gout Incisional hernia Left inguinal hernia Median nerve neuropathy Mild anemia Obesity (BMI 30-39.9) Pure hypercholesterolemia Recurrent umbilical hernia Tachycardia Tarsal tunnel syndrome of both lower extremities Umbilical hernia Ventral hernia Vitamin D deficiency Surgical History History of left inguinal hernia repair History of umbilical hernia repair (~03/2021) Hx of cholecystectomy Hx of colonoscopy Hx of hernia repair Hx of rotator cuff surgery Hx of umbilical hernia repair Family History Father No problems noted. Mother No problems noted. Social History Household Members: Family Housing: House Are you a primary care program resident to a significant other at home: No Do you presently have visiting nurse or other home services: No Alcohol intake: current Alcohol intake frequency: holidays/special occasions only Patient Tobacco Use Status: Former Tobacco user Quit Date: cigars 4 months ago Tobacco use type: Cigarette and Cigar Cigarettes Per Day: 2 Years Smoked: 30 e-Cigarette/Vaping Use: Never Used service: No Current occupational status: unemployed Cognitive needs: No Hearing needs: Yes Vision needs: Yes Assessment & Plan Assessment & Plan (1) Diabetes mellitus: Code(s): E11.9 - Type 2 diabetes mellitus without complications Qualifiers: Diabetes mellitus complication status: without complication Diabetes mellitus intermediate insulin use: without intermediate use Diabetes mellitus type: type 2 Qualified Code(s): E11.9 - Type 2 diabetes mellitus without complications Plan: Continue working towards 2000- calories per day low in fat and high in fiber USED WEIGHT: 122 kg (269lbs) (04/2022) , 240 lbs (109 kg) (03/2023) est protein needs as per 1 g/kg current body weight : 109 g/d est fluid needs as per 25 ml/kg bw: 3300 ml/d Rec fiber intake : 30-38 g /day or as tolerated Rec Na intake : < 2000 mg/d Review low sodium food sources REview antioxidant sources o ffoods and role in diet/health Hypoglycemia protocol , prevention and treatment Mindful eating strategies Role of physical activity BMI at 38.3 on 10/25/20, BMI 37.6 on 02/04/21, BMI at 37.4 (12/09/20), 38.3 on 07/29/21 BMI 39.4 on 10/28/21, BMI at 39 on 12/31/21, BMI 38 on 04/02/22, BMI at 35.8 (10/07/22), BMI 33.6 (03/2023) A1c at 7.3% on 09/2021, 7.3% on 01/2022, 6.8% (06/2022),, 6.3 on 10/2022 Patient Instructions: Continue working on reducing on empty calorie foods (fried foods) Aim at including 2 fruits a day , replacing pastries and working on low sodium food choices Keep physically active , goal 150 minutes per week Coding Level of Care Code Nutr Indiv Subseq ([id number]) Diagnoses Type 2 diabetes mellitus without complication, without long-term current use of insulin E11.9 Diabetes mellitus complication status: without complication Diabetes mellitus termite control representative insulin use: without termite control representative use Diabetes mellitus type: type 2 Time Spent (min) 20
== END 2023-04-07 12:13 | disposition home or self-care (01) ==
PROVIDERS: PCP Internal Medicine; Visit Provider Dietitian, Registered
DX: E11.9 Type 2 diabetes mellitus without complications (principal)

== ENCOUNTER → 2023-04-07 11:39 | Outpatient (BNVA) | payer OTHER, SELFPAY | PROVIDERS: Visit Provider Dietitian, Registered | DX: E11.9 Type 2 diabetes mellitus without complications (principal); I10 Essential (primary) hypertension; E78.00 Pure hypercholesterolemia, unspecified; E66.01 Morbid (severe) obesity due to excess calories; Z68.33 Body mass index [BMI] 33.0-33.9, adult; Z71.3 Dietary counseling and surveillance | CPT/HCPCS: 97803 ==

== ENCOUNTER 2023-05-12 08:13 | Outpatient (REF) | payer OTHER, SELFPAY ==
[2023-05-12 11:24] LABS: MANUAL DIFF FLAG NO
[2023-05-12 11:33] LABS: Basophils Absolute Auto 0.1 X10*3/uL (0.0-0.2); Basophils Percent Auto 0.5 % (0-2); Eosinophils Absolute Auto 0.2 X10*3/uL (0.0-0.4); Eosinophils Percent Auto 1.7 % (0-4); Hematocrit 42.4 % (42.0-52.0); Hemoglobin 13.8 g/dl (14.0-18.0); Imm Gran Abs Auto 0.05 X10*3/uL (0.00-0.03); Imm Gran Pct Auto 0.4 % (0.0-0.4); Lymphocytes Absolute Auto 3.3 X10*3/uL (1.2-4.9); Lymphocytes Percent Auto 26.3 % (20-40); Mean Corpuscular HGB Conc 32.5 g/dl (31.0-36.0); Mean Corpuscular Hemoglobin 28.2 pg (27.0-33.0); Mean Corpuscular Volume 86.7 fL (80.0-98.0); Mean Platelet Volume 10.9 fL (9.4-12.4); Monocytes Absolute Auto 1.3 X10*3/uL (0.1-1.2); Monocytes Percent Auto 10.3 % (2-11); Neutrophils Absolute Auto 7.7 x10*3/uL (2.0-8.3); Neutrophils Percent Auto 60.8 % (45-73); Platelet Count 232 X10*3/uL (160-400); Red Blood Count 4.89 X10*6/uL (4.60-5.80); Red Cell Distribution Width 13.9 % (11.0-16.0); White Blood Count 12.6 X10*3/uL (4.8-10.8)
[2023-05-12 11:38] LABS: Appearance Urine Clear; Color Urine Yellow; Glucose Urine UA >=1000 mg/dL (Negative); Leukocyte Esterase Urine Negative (Negative); Nitrite Urine Negative (Negative); PH 5.5 (5.0-9.0); Specific Gravity - Urine >= 1.030 (1.005-1.025); UMIC TRIGGER UACC YES; Urine Blood Negative (Negative); Urine Ketones Negative (Negative); Urine Protein Negative (Neg-Trace)
[2023-05-12 11:39] LABS: Estimated Average Glucose 163 mg/dL; Hemoglobin A1c % 7.3 % (<6.0)
[2023-05-12 11:42] LABS: Bacteria Urine None Seen (None Seen); Hyaline Casts Urine 0-2 /LPF (0-2); RBC Urine 0-2 /HPF (0-2); Squamous Epithelial Cell Urine 0-2 /HPF (0-2); WBC Urine 0-5 /HPF (0-5)
[2023-05-12 12:18] LABS: Alanine Aminotransferase 28 U/L (0-40); Albumin Level 3.9 g/dL (3.5-5.0); Alkaline Phosphatase 55 U/L (39-117); Anion Gap 11 (12-20); Aspartate Amino Transferase 19 U/L (5-37); Bilirubin Total 0.4 mg/dL (0.0-1.0); Blood Urea Nitrogen 24 mg/dL (9-16); Calcium 9.4 mg/dL (8.4-10.2); Carbon Dioxide 29 mmol/L (22-29); Chloride 105 mmol/L (96-108); Cholesterol 143 mg/dL (<200); Estimated Glomerular Filt Rate > 60; Glucose Fasting 160 mg/dL (60-99); HDL Cholesterol 48 mg/dL (>40); LDL Cholesterol Calculated 71 mg/dL (<100); Potassium 4.2 mmol/L (3.3-5.1); Sodium 141 mmol/L (135-145); Total Protein 6.5 g/dL (6.5-8.0); Triglycerides 122 mg/dL (<150)
[2023-05-12 12:25] LABS: Creatinine Urine 75.07 mg/dL; Microalbum/Creatinine Ratio Ur 10.6 ug/mg cr (<30)
[2023-05-12 13:17] LABS: TSH reflex Free T4 1.21 uIU/mL (0.32-4.0); Vitamin D 25-OH Total 51.7 ng/mL (>30)
== END 2023-05-12 08:14 | disposition home or self-care (01) ==
LOC: HO.HMGCLDS 08:13
PROVIDERS: PCP Internal Medicine; Visit Provider Internal Medicine
DX: E78.00 Pure hypercholesterolemia, unspecified (principal); E11.9 Type 2 diabetes mellitus without complications; E55.9 Vitamin D deficiency, unspecified; I10 Essential (primary) hypertension
CPT/HCPCS: 36415; 80053; 80061; 81001; 82043; 82306; 82570; 83036; 84443; 85025

== ENCOUNTER 2023-05-15 15:45 | Outpatient (AMB) | payer OTHER, SELFPAY ==
--- NOTE | 2023-05-15 15:46 | A.OFFPC_ITS ---
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 Accompanied by: Self / Same As Patient Allergies No Known Allergies Allergy (Verified 05/15/23 16:18) Medication List - Last Reconciled 05/15/23 by Rosendo Chiang MD blood sugar diagnostic (FreeStyle Lite Strips) As directed once a day blood-glucose meter (FreeStyle Lite Meter kit) As directed cholecalciferol (vitamin D3) 50 mcg PO DAILY 90 days codeine-guaifenesin 6.3-100 mg/5 mL 10 mL PO Q4-6H PRN cyclobenzaprine 10 mg PO TID PRN 30 days dulaglutide (Trulicity) 4.5 mg (0.5 mL) subcut QWEEK 12 weeks empagliflozin (Jardiance) 25 mg PO QAM flash glucose scanning reader ([employer] [place] 2 [place]) As directed flash glucose sensor (FreeStyle Reinier 2 Sensor kit) As directed every 2 weeks [id number] C-Mn 500-400 mg caps PO ibuprofen 600 mg PO Q6H PRN ibuprofen 600 mg PO Q6H PRN ketoconazole 2% 1 appl topical BID PRN lisinopril 10 mg PO DAILY 90 days metformin 1,000 mg PO BID 90 days multivitamin 1 tab PO DAILY omeprazole 20 mg PO DAILY 90 days oxycodone-acetaminophen 5-325 mg (Percocet) 1 tab PO Q4-6H PRN pioglitazone 15 mg PO DAILY 90 days simvastatin 20 mg PO BEDTIME 90 days Tobacco use date assessed: 05/15/23 Fall risk assessment: No Falls in past year Last assessed Fall Risk: 05/15/23 Dental Screening Dental Screen Date: 05/15/23 Did you have a dental visit in the last 12 months?: Yes Did you have a dental problem in the last 6 months where you did not have access to dental care?: No Was dental information given to patient?: Patient has dentist HPI DM, hyperlipidemia, HTN, GERD HPI Details Patient comes in today for his follow up visit Thinks that he tweaked his lower back while playing golf sometime last month and has been experiencing increased pain over his lower back since States that he has not been able to move around as much and is hardly able to do anything with his increased low back pain so he practically stopped exercising and walking over the past few weeks Has gained a lot of weight over the past month or so as a result and he is feeling depressed about this now States that he has done some back exercises and stretching lately and his lower back is starting to feel better in the past couple of days He denies any headaches or dizziness Denies any chest pains, no SOB but states that he has been coughing a lot lately - cough is mostly dry and he finds that using his Albuterol inhaler helps a lot and calms down his cough - would like to get Rx refilled for this No nausea/vomiting, no abdominal pain No change in bowel habits noted Had his follow up labs done a few days ago - to discuss his results [facility] Medical History Left inguinal hernia Tachycardia Incisional hernia Recurrent umbilical hernia Ventral hernia Umbilical hernia Median nerve neuropathy Obesity (BMI 30-39.9) Tarsal tunnel syndrome of both lower extremities Gout Vitamin D deficiency Degenerative arthritis of left shoulder region Mild anemia GERD without esophagitis Pure hypercholesterolemia Benign essential hypertension Diabetes mellitus Surgical History History of left inguinal hernia repair History of umbilical hernia repair (~03/2021) Hx of colonoscopy Hx of cholecystectomy Hx of rotator cuff surgery Hx of umbilical hernia repair Hx of hernia repair Family History Father No problems noted. Mother No problems noted. Social History Household Members: Family Housing: House Are you a primary home health aide caregiver to a significant other at home: No Do you presently have visiting nurse or other home services: No Alcohol intake: current Alcohol intake frequency: holidays/special occasions only Patient Tobacco Use Status: Former Tobacco user Quit Date: cigars 4 months ago Tobacco use type: Cigarette and Cigar Cigarettes Per Day: 2 Years Smoked: 30 e-Cigarette/Vaping Use: Never Used service: No Current occupational status: unemployed Cognitive needs: No Hearing needs: Yes Vision needs: Yes Questionnaire PHQ-9 Over the last 2 weeks, how often have you been bothered by any of the following problems? 1. Little interest or pleasure in doing things: not at all 2. Feeling down, depressed, or hopeless: not at all 3. Trouble falling or staying asleep, or sleeping too much: not at all 4. Feeling tired or having little energy: not at all 5. Poor appetite or overeating: not at all 6. Feeling bad about yourself - or that you are a failure or have let yourself or your family down: not at all 7. Trouble concentrating on things, such as reading the newspaper or watching television: not at all 8. Moving or speaking so slowly that other people could have noticed. Or the opposite - being so fidgety or restless that you have been moving around a lot more than usual: not at all 9. Thoughts that you would be better off or of hurting yourself in some way: not at all Total score: 0 Depression Screening Interpretation: Negative Depression Screening Done: Yes 17446 - PHQ-9 Billing: Yes Source: Developed by Drs. Nii Blevins, Heydi Fuentes, Ayo Escamilla and colleagues, with an educational matt from [employer]. Thrive Questionnaire Date Thrive assessed: 05/15/23 I am a: Patient What is your living situation today?: I have a steady place to live Within the past 12 months, did the food you bought not last and you didn't have the money to get more?: Never true Within the past 12 months, did you worry whether your food would run out before you got money to buy more?: Never true Do you have trouble paying for medicines?: No Do you have trouble getting transportation to medical appointments?: No Do you have trouble paying your heating and electricity bill?: No Do you have trouble taking care of your child, family member or friend?: No Do you have trouble with day-to-day activities such as bathing, preparing meals, shopping, managing finances, etc.?: No Are you currently unemployed and looking for a job?: No Are you interested in more education?: No Please select the resources that you would like help with: None Currently or been in a relationship where the following occur: no concerns reported AUDIT C Alcohol Use Questionnaire (AUDIT-C) 1. How often do you have a drink containing alcohol?: Never 2. How many drinks containing alcohol do you have on a typical day when you are drinking?: 1 or 2 3. How often do you have six or more drinks on one occasion?: Never Total Score: 0 Score Reviewed/Action Taken: Yes THEO-7 AMB Questionnaire THEO-7 Date THEO - 7 assessed: 05/15/23 Feeling nervous, anxious, or on edge: 0 = Not at all Not being able to stop or control worryin = Not at all Worrying too much about different things: 0 = Not at all Trouble relaxin = Not at all Being so restless that it is hard to sit still: 0 = Not at all Becoming easily annoyed or irritable: 0 = Not at all Feeling afraid as if something awful might happen: 0 = Not at all Total THEO-7 score (0-4 normal; 5-9 mild; 10-14 moderate; 15-21 severe): 0 Source: Developed by Drs. Nii Blevins, Heydi Fuentes, Ayo Escamilla and colleagues, with an educational matt from [employer]. Review of Systems Const Denies chills, Denies fatigue, Denies fever(s) and Denies headache(s) ENT Denies dysphagia, Denies dizziness, Denies otalgia, Denies headache(s), Denies odynophagia and Denies sore throat Card Denies chest pain, Denies palpitations and Denies dyspnea Resp Denies cough and Denies dyspnea GI Denies abdominal pain, Denies constipation, Denies dysphagia, Denies heartburn, Denies diarrhea, Denies nausea, Denies odynophagia and Denies vomiting Denies dysuria, Denies nocturia and Denies urinary frequency Musc Reports back pain (increased lately, over the lower back) Skin/Breast Denies rash Neuro Denies dizziness and Denies headache(s) Endo Denies fatigue and Denies palpitations Physical exam (Primary Care) Vital Signs: Last Vital Signs Pulse 99 05/15/23 15:47 BP 134/78 05/15/23 15:47 Pulse Ox 98 05/15/23 15:47 Oxygen Delivery Method Room Air 05/15/23 15:47 BMI result Body Mass Index 35.1 Tobacco/Smoking Status: Tobacco use Status Tobacco use date assessed 05/15/23 05/15/23 15:50 Patient Tobacco Use Status Former Tobacco user 05/15/23 15:50 Tobacco use type Cigarette,Cigar 05/15/23 15:50 e-Cigarette/Vaping Use Never Used 05/15/23 15:50 PHQ-9: PHQ-9 Score PHQ-9: Total score 0 05/15/23 15:50 Depression Screening Interpretation: Negative Thrive Assessment: Date of Thrive Assessment Date Thrive assessed 05/15/23 05/15/23 15:50 Currently or been in a relationship where the following occur: no concerns reported Const General: no acute distress and alert HENMT Ears: TM's normal bilaterally and EAC's normal Throat: Yes posterior oropharynx normal and Yes tonsils normal (no TP congestion noted) Neck Neck: Yes no lymphadenopathy and Yes supple Resp Auscultation: clear to auscultation bilaterally, no rales and no wheezes Cardio Rate: regular rate Rhythm: regular rhythm Heart sounds: no murmurs GI Palpation (GI): Soft to palpation and nontender Auscultation: normal bowel sounds Back/Spine/Pelvis Thoracic/Lumbar Spine: lumbar spinal tenderness (mild) Skin Rashes: no rashes Extrem General: Yes no clubbing, cyanosis or edema Results Reviewed Results Reviewed: Laboratory Tests 05/12/23 08:22 WBC 12.6 H Hgb 13.8 L Hct 42.4 Plt Count 232 Sodium 141 Potassium 4.2 Creatinine 1.20 Estimated GFR > 60 Fasting Glucose 160 H Hemoglobin A1c % 7.3 H Calcium 9.4 AST 19 ALT 28 Triglycerides 122 Cholesterol 143 LDL Cholesterol, Calc 71 HDL Cholesterol 48 25-OH Vitamin D Total 51.7 TSH 1.21 Ur Specific [place] >= 1.030 H Urine Protein Negative Urine Glucose (UA) >=1000 H Urine Blood Negative Urine Nitrite Negative Ur Leukocyte Esterase Negative Microalb/Creat Ratio 10.6 Assessment and Plan Assessment & Plan (1) Diabetes mellitus: Code(s): E11.9 - Type 2 diabetes mellitus without complications Qualifiers: Diabetes mellitus type: type 2 Diabetes mellitus nursing home insulin use: without questioned documents examiner use Diabetes mellitus complication status: without complication Qualified Code(s): E11.9 - Type 2 diabetes mellitus without complications Plan: HgbA1c has increased to 7.3% on his recent labs (was at 6.3% a few months ago) - goal is <7.0% Reinforced diabetic diet Continue Metformin 1000 mg BID, Jardiance 25 mg QD and Trulicity 4.5 mg SQ once a week He was also on Pioglitazone 15 mg QD but wanted to try cutting back on his medicines so we had him HOLD his Pioglitazone 15 mg QD since his last follow up visit so his recent increase in his HgbA1c may also partly be due to this Follow up with endocrinology as scheduled (2) Benign essential hypertension: Code(s): I10 - Essential (primary) hypertension Plan: Reinforced low sodium diet - goal is systolic BP of at least 130 mm or less Continue Lisinopril 10 mg QD (3) Pure hypercholesterolemia: Code(s): E78.00 - Pure hypercholesterolemia, unspecified Plan: Results of his labs done a few days ago reviewed and discussed with patient Reinforced low cholesterol diet Continue Simvastatin 20 mg QD Will recheck his labs and fasting lipids in 4 months for follow-up (4) GERD without esophagitis: Code(s): K21.9 - Gastro-esophageal reflux disease without esophagitis Plan: Dietary restrictions reinforced Continue Omeprazole 20 mg QD (5) Vitamin D deficiency: Code(s): E55.9 - Vitamin D deficiency, unspecified Plan: Continue Vitamin D3 2000 units QD (6) Gout: Code(s): M10.9 - Gout, unspecified Qualifiers: Gout site: unspecified site Gout etiology: idiopathic Chronicity: unspecified Qualified Code(s): M10.00 - Idiopathic gout, unspecified site Plan: Patient reports no recent acute gout flare ups Reinforced low purine diet - serum uric acid remains normal when checked a few months ago (7) Recurrent cough: Code(s): R05.8 - Other specified cough Plan: Likely due to reactive airways, influenced in part, by his COVID infection months ago If symptoms persist, should consider further evaluation and work up for possible ILD Will have him continue using Albuterol HFA 2 inhalations Q 6 hours PRN for now (8) Left-sided low back pain with left-sided sciatica: Code(s): M54.42 - Lumbago with sciatica, left side Qualifiers: Chronicity: unspecified Qualified Code(s): M54.42 - Lumbago with sciatica, left side Plan: States that his left lower back pain has improved a lot lately with back stretches and exercise Reinforced activity and weight-lifting restrictions Abdominal CT done in 01/2021 included incidental findings of mild degenerative facet joint arthropathy at L5-S1 and L4-L5 disc levels. No fracture, lytic or sclerotic process seen. Mild ventral spondylosis lower dorsal spine is noted If low back pain progresses, will consider dedicated lumbar spine CT or MRI for further evaluation (9) Tarsal tunnel syndrome of both lower extremities: Code(s): G57.53 - Tarsal tunnel syndrome, bilateral lower limbs Plan: Patient continues to report frequent pain in his feet and legs bilaterally, especially at night To consider Gabapentin Rx if his symptoms continue to persist or worsen (10) Obesity (BMI 30-39.9): Code(s): E66.9 - Obesity, unspecified Plan: Reinforced diet/exercise as tolerated /lose weight Plan Follow up in 4 months Orders: Orders Complete Blood Count Auto Diff 4 Months I10 - Essential (primary) hypertension Lipid Panel 4 Months E78.00 - Pure hypercholesterolemia, unspecified UA CC w/rflx Micro + Cult 4 Months R30.0 - Dysuria Microalbumin, Random (w Creat) 4 Months E11.9 - Type 2 diabetes mellitus without complications Vitamin D 25-OH Total 4 Months E55.9 - Vitamin D deficiency, unspecified Comprehensive [place]. Panel Fast 4 Months E78.00 - Pure hypercholesterolemia, unspecified TSH reflex Free T4 4 Months E78.00 - Pure hypercholesterolemia, unspecified Hemoglobin A1c 4 Months E11.9 - Type 2 diabetes mellitus without complications Vitamin B12 and Folate 4 Months E53.8 - Deficiency of other specified B group vitamins Medications: New albuterol sulfate 90 mcg/actuation (Ventolin HFA) 2 puffs inhalation Q6H PRN 8.5 grams 5RF shortness of breath or wheezing 30 days Coding Level of Care Code Est Pt Level 4 (09663) Diagnoses Type 2 diabetes mellitus without complication, without long-term current use of insulin E11.9 Diabetes mellitus type: type 2 Diabetes mellitus questioned documents examiner insulin use: without nursing home use Diabetes mellitus complication status: without complication Benign essential hypertension I10 Pure hypercholesterolemia E78.00 GERD without esophagitis K21.9 Vitamin D deficiency E55.9 Idiopathic gout, unspecified chronicity, unspecified site M10.00 Gout site: unspecified site Gout etiology: idiopathic Chronicity: unspecified Recurrent cough R05.8 Left-sided low back pain with left-sided sciatica, unspecified chronicity M54.42 Chronicity: unspecified Tarsal tunnel syndrome of both lower extremities G57.53 Obesity (BMI 30-39.9) E66.9
[2023-05-15 15:47] VITALS: BP 134/78; PULSE 99; O2SAT 98; BMI 35.1
== END 2023-05-15 16:32 | disposition home or self-care (01) ==
PROVIDERS: PCP Internal Medicine; Visit Provider Internal Medicine
DX: E11.9 Type 2 diabetes mellitus without complications (principal); I10 Essential (primary) hypertension; E66.9 Obesity, unspecified; Z68.35 Body mass index [BMI] 35.0-35.9, adult; E78.00 Pure hypercholesterolemia, unspecified; K21.9 Gastro-esophageal reflux disease without esophagitis; E55.9 Vitamin D deficiency, unspecified; M10.00 Idiopathic gout, unspecified site; R05.8 Other specified cough; M54.42 Lumbago with sciatica, left side; G57.53 Tarsal tunnel syndrome, bilateral lower limbs
CPT/HCPCS: 99214

== ENCOUNTER 2023-09-14 08:21 | Outpatient (REF) | payer OTHER, SELFPAY ==
[2023-09-14 10:24] LABS: MANUAL DIFF FLAG NO
[2023-09-14 10:33] LABS: Basophils Percent Auto 0.4 % (0-2); Eosinophils Absolute Auto 0.3 X10*3/uL (0.0-0.4); Eosinophils Percent Auto 3.4 % (0-4); Hemoglobin 13.4 g/dl (14.0-18.0); Imm Gran Abs Auto 0.02 X10*3/uL (0.00-0.03); Imm Gran Pct Auto 0.2 % (0.0-0.4); Lymphocytes Percent Auto 32.8 % (20-40); Mean Corpuscular HGB Conc 31.9 g/dl (31.0-36.0); Mean Corpuscular Hemoglobin 27.6 pg (27.0-33.0); Mean Corpuscular Volume 86.6 fL (80.0-98.0); Mean Platelet Volume 10.5 fL (9.4-12.4); Monocytes Absolute Auto 0.8 X10*3/uL (0.1-1.2); Monocytes Percent Auto 9.3 % (2-11); Neutrophils Absolute Auto 4.9 x10*3/uL (2.0-8.3); Neutrophils Percent Auto 53.9 % (45-73); Platelet Count 233 X10*3/uL (160-400); Red Blood Count 4.85 X10*6/uL (4.60-5.80); Red Cell Distribution Width 13.9 % (11.0-16.0); White Blood Count 9.1 X10*3/uL (4.8-10.8)
[2023-09-14 10:37] LABS: Estimated Average Glucose 157 mg/dL; Hemoglobin A1c % 7.1 % (<6.0)
[2023-09-14 10:38] LABS: Appearance Urine Clear; Color Urine Yellow; Glucose Urine UA >=1000 mg/dL (Negative); Leukocyte Esterase Urine Negative (Negative); Nitrite Urine Negative (Negative); Specific Gravity - Urine >= 1.030 (1.005-1.025); UMIC TRIGGER UACC YES; Urine Blood Negative (Negative); Urine Ketones Negative (Negative); Urine Protein Negative (Neg-Trace)
[2023-09-14 10:42] LABS: Bacteria Urine None Seen (None Seen); Hyaline Casts Urine 0-2 /LPF (0-2); RBC Urine 0-2 /HPF (0-2); Squamous Epithelial Cell Urine 0-2 /HPF (0-2); WBC Urine 0-5 /HPF (0-5)
[2023-09-14 10:51] LABS: Alanine Aminotransferase 24 U/L (0-40); Alkaline Phosphatase 49 U/L (39-117); Anion Gap 12 (12-20); Aspartate Amino Transferase 16 U/L (5-37); Bilirubin Total 0.2 mg/dL (0.0-1.0); Blood Urea Nitrogen 22 mg/dL (9-16); Calcium 9.3 mg/dL (8.4-10.2); Carbon Dioxide 27 mmol/L (22-29); Chloride 108 mmol/L (96-108); Cholesterol 142 mg/dL (<200); Estimated Glomerular Filt Rate 52; Glucose Fasting 143 mg/dL (60-99); HDL Cholesterol 42 mg/dL (>40); LDL Cholesterol Calculated 74 mg/dL (<100); Potassium 4.2 mmol/L (3.3-5.1); Sodium 143 mmol/L (135-145); Total Protein 6.6 g/dL (6.5-8.0); Triglycerides 133 mg/dL (<150)
[2023-09-14 10:59] LABS: Creatinine Urine 94.07 mg/dL; Microalbum/Creatinine Ratio Ur 7.4 ug/mg cr (<30)
[2023-09-14 11:15] LABS: TSH reflex Free T4 0.83 uIU/mL (0.32-4.0); Vitamin D 25-OH Total 43.3 ng/mL (>30)
[2023-09-14 11:19] LABS: Folate 11.5 ng/mL (> or = 4.0); Vitamin B12 539 pg/mL (200-900)
== END 2023-09-14 08:22 | disposition home or self-care (01) ==
LOC: HO.HMGCLDS 08:21
PROVIDERS: PCP Internal Medicine; Visit Provider Internal Medicine
DX: E11.9 Type 2 diabetes mellitus without complications (principal); E78.00 Pure hypercholesterolemia, unspecified; E53.8 Deficiency of other specified B group vitamins; E55.9 Vitamin D deficiency, unspecified; I10 Essential (primary) hypertension
CPT/HCPCS: 36415; 80053; 80061; 81001; 82043; 82306; 82570; 82607; 82746; 83036; 84443; 85025

== ENCOUNTER 2023-09-18 16:40 | Outpatient (AMB) | payer OTHER, SELFPAY ==
[2023-09-18 16:43] VITALS: BP 126/72; PULSE 106; O2SAT 96; BMI 36.5
--- NOTE | 2023-09-18 16:43 | A.OFFPC_ITS ---
Vital Signs 09/18/23 16:43 Height 5 ft 11 in Weight 262 lb BMI 36.5 BP 126/72 Blood Pressure Location Lt brachial Position Sitting Pulse 106 H Pulse Source Pulse Oximeter Pulse Oximetry (%) 96 Oxygen Delivery Method Room Air Intake Visit Reasons: 4 month f/u Investment Accountant Required: No Accompanied by: Self / Same As Patient Allergies No Known Allergies Allergy (Verified 09/18/23 17:22) Medication List - Last Reconciled 09/18/23 by Rosendo Chiang MD albuterol sulfate 90 mcg/actuation (Ventolin HFA) 2 puffs inhalation Q6H PRN 30 days blood sugar diagnostic (FreeStyle Lite Strips) As directed once a day blood-glucose meter (FreeStyle Lite Meter kit) As directed cholecalciferol (vitamin D3) 50 mcg PO DAILY 90 days codeine-guaifenesin 6.3-100 mg/5 mL 10 mL PO Q4-6H PRN cyclobenzaprine 10 mg PO TID PRN 30 days dulaglutide (Trulicity) 4.5 mg (0.5 mL) subcut QWEEK 12 weeks empagliflozin (Jardiance) 25 mg PO QAM flash glucose scanning reader ([employer] Reinier 2 [place]) As directed flash glucose sensor (FreeStyle Reinier 2 Sensor kit) As directed every 2 weeks [id number] C-Mn 500-400 mg caps PO ibuprofen 600 mg PO Q6H PRN ibuprofen 600 mg PO Q6H PRN ketoconazole 2% 1 appl topical BID PRN lisinopril 10 mg PO DAILY 90 days metformin 1,000 mg PO BID 90 days multivitamin 1 tab PO DAILY omeprazole 20 mg PO DAILY 90 days oxycodone-acetaminophen 5-325 mg (Percocet) 1 tab PO Q4-6H PRN pioglitazone 15 mg PO DAILY 90 days simvastatin 20 mg PO BEDTIME 90 days Tobacco use date assessed: 09/18/23 Fall risk assessment: No Falls in past year Last assessed Fall Risk: 09/18/23 Dental Screening Dental Screen Date: 09/18/23 Did you have a dental visit in the last 12 months?: Yes Did you have a dental problem in the last 6 months where you did not have access to dental care?: No Was dental information given to patient?: Patient has dentist HPI 4 month f/u HPI Details Patient comes in today for his follow up visit States that has been experiencing increased sharp pains over his right lower back that often radiates down his right buttocks into the back of his right thigh for a couple of months now States that he has a friend who is a physical therapist and she has been helping him out for a couple of weeks now, with some improvement of his symptoms, but was advised that his right lower back muscles are very tight and he may benefit from some additional treatments, including possible chiropractic evaluation and treatments She has also mentioned to him that Gabapentin may help with his symptoms and he can ask about this from his PCP Patient denies any recent injury or trauma to his lower back Adds that he has been experiencing a persistent ringing sensation in both of his ears for several weeks now and that they feel worse at night He denies any ear pain but notes that his ears feel congested at times and is wondering if his ears are clogged up with ear wax or not States that he feels okay otherwise He denies any headaches or dizziness Denies any chest pains, no SOB No nausea/vomiting, no abdominal pain No change in bowel habits noted Had his follow up labs done a few days ago - to discuss his results [facility] Medical History Left inguinal hernia Tachycardia Incisional hernia Recurrent umbilical hernia Ventral hernia Umbilical hernia Median nerve neuropathy Obesity (BMI 30-39.9) Tarsal tunnel syndrome of both lower extremities Gout Vitamin D deficiency Degenerative arthritis of left shoulder region Mild anemia GERD without esophagitis Pure hypercholesterolemia Benign essential hypertension Diabetes mellitus Surgical History History of left inguinal hernia repair History of umbilical hernia repair (~03/2021) Hx of colonoscopy Hx of cholecystectomy Hx of rotator cuff surgery Hx of umbilical hernia repair Hx of hernia repair Family History Father No problems noted. Mother No problems noted. Social History Household Members: Family Housing: House Are you a primary customer care representative to a significant other at home: No Do you presently have visiting nurse or other home services: No Alcohol intake: current Alcohol intake frequency: holidays/special occasions only Patient Tobacco Use Status: Former Tobacco user Quit Date: cigars 4 months ago Tobacco use type: Cigarette and Cigar Cigarettes Per Day: 2 Years Smoked: 30 e-Cigarette/Vaping Use: Never Used service: No Current occupational status: unemployed Cognitive needs: No Hearing needs: Yes Vision needs: Yes Questionnaire PHQ-9 Over the last 2 weeks, how often have you been bothered by any of the following problems? 1. Little interest or pleasure in doing things: nearly every day 2. Feeling down, depressed, or hopeless: more than half the days 3. Trouble falling or staying asleep, or sleeping too much: nearly every day 4. Feeling tired or having little energy: nearly every day 5. Poor appetite or overeating: more than half the days 6. Feeling bad about yourself - or that you are a failure or have let yourself or your family down: more than half the days 7. Trouble concentrating on things, such as reading the newspaper or watching television: not at all 8. Moving or speaking so slowly that other people could have noticed. Or the opposite - being so fidgety or restless that you have been moving around a lot more than usual: nearly every day 9. Thoughts that you would be better off or of hurting yourself in some way: not at all Total score: 18 Depression Screening Interpretation: Positive Depression Screening Follow-up: Existing condition and In treatment Depression Screening Done: Yes 99337 - PHQ-9 Billing: Yes Source: Developed by Drs. Nii Blevins, Heydi Fuentes, Ayo Escamilla and colleagues, with an educational matt from [employer]. Thrive Questionnaire Date Thrive assessed: 09/18/23 I am a: Patient What is your living situation today?: I have a steady place to live Within the past 12 months, did the food you bought not last and you didn't have the money to get more?: Never true Within the past 12 months, did you worry whether your food would run out before you got money to buy more?: Never true Do you have trouble paying for medicines?: No Do you have trouble getting transportation to medical appointments?: No Do you have trouble paying your heating and electricity bill?: No Do you have trouble taking care of your child, family member or friend?: No Do you have trouble with day-to-day activities such as bathing, preparing meals, shopping, managing finances, etc.?: No Are you currently unemployed and looking for a job?: No Are you interested in more education?: No Please select the resources that you would like help with: None Currently or been in a relationship where the following occur: no concerns reported THRIVE Score: 0 AUDIT C Alcohol Use Questionnaire (AUDIT-C) 1. How often do you have a drink containing alcohol?: Never 3. How often do you have six or more drinks on one occasion?: Never Total Score: 0 Score Reviewed/Action Taken: Yes THEO-7 AMB Questionnaire THEO-7 Date THEO - 7 assessed: 09/18/23 Feeling nervous, anxious, or on edge: 0 = Not at all Not being able to stop or control worryin = Several days Worrying too much about different things: 2 = More than half the days Trouble relaxin = Several days Being so restless that it is hard to sit still: 2 = More than half the days Becoming easily annoyed or irritable: 2 = More than half the days Feeling afraid as if something awful might happen: 0 = Not at all Total THEO-7 score (0-4 normal; 5-9 mild; 10-14 moderate; 15-21 severe): 8 Source: Developed by Drs. Nii Blevins, Heydi Fuentes, Ayo Escamilla and colleagues, with an educational matt from [employer]. THEO-7 Assessment Billing THEO-7 Assessment Tool: THEO-7 Assessment 29709 Review of Systems Const Denies chills, Denies fatigue, Denies fever(s) and Denies headache(s) ENT Denies dysphagia, Denies dizziness, Denies otalgia, Denies headache(s), Denies neck pain, Denies odynophagia, Reports tinnitus (in both ears - persistent) and Denies sore throat Card Denies chest pain, Denies palpitations and Denies dyspnea Resp Denies cough and Denies dyspnea GI Denies abdominal pain, Denies constipation, Denies dysphagia, Denies heartburn, Denies diarrhea, Denies nausea, Denies odynophagia and Denies vomiting Denies dysuria, Denies nocturia and Denies urinary frequency Musc Reports as per HPI, Reports back pain (increased lately, over the right lower back) and Denies neck pain Skin/Breast Denies rash Neuro Denies dizziness and Denies headache(s) Endo Denies fatigue and Denies palpitations Physical exam (Primary Care) Vital Signs: Last Vital Signs Pulse 106 H 09/18/23 16:43 BP 126/72 09/18/23 16:43 Pulse Ox 96 09/18/23 16:43 Oxygen Delivery Method Room Air 09/18/23 16:43 BMI result Body Mass Index 36.5 Tobacco/Smoking Status: Tobacco use Status Tobacco use date assessed 09/18/23 09/18/23 16:49 Patient Tobacco Use Status Former Tobacco user 09/18/23 16:43 Tobacco use type Cigarette,Cigar 09/18/23 16:43 e-Cigarette/Vaping Use Never Used 09/18/23 16:43 PHQ-9: PHQ-9 Score PHQ-9: Total score 18 09/18/23 17:35 Depression Screening Interpretation: Positive Depression Screening Follow-up: Existing condition and In treatment Thrive Assessment: Date of Thrive Assessment Date Thrive assessed 09/18/23 09/18/23 16:49 Currently or been in a relationship where the following occur: no concerns reported Const General: no acute distress and alert HENMT Ears: TM's normal bilaterally and EAC's normal Throat: Yes posterior oropharynx normal and Yes tonsils normal (no TP congestion noted) Neck Neck: Yes no lymphadenopathy and Yes supple Resp Auscultation: clear to auscultation bilaterally, no rales and no wheezes Cardio Rate: regular rate Rhythm: regular rhythm Heart sounds: no murmurs GI Palpation (GI): Soft to palpation and nontender Auscultation: normal bowel sounds General: Yes no CVA tenderness Back/Spine/Pelvis Back: no CVA tenderness Thoracic/Lumbar Spine: straight leg raise negative bilaterally, paraspinal muscle tenderness on the right in the mid lumbar and in the lower lumbar and lumbar spinal tenderness (mild) Sacroiliac joints: on the right Sacrum: tenderness on the right Skin Rashes: no rashes Extrem General: Yes no clubbing, cyanosis or edema Results Reviewed Results Reviewed: Laboratory Tests 09/14/23 08:29 WBC 9.1 Hgb 13.4 L Hct 42.0 Plt Count 233 Sodium 143 Potassium 4.2 Creatinine 1.38 Estimated GFR 52 Fasting Glucose 143 H Hemoglobin A1c % 7.1 H Calcium 9.3 AST 16 ALT 24 Triglycerides 133 Cholesterol 142 LDL Cholesterol, Calc 74 HDL Cholesterol 42 Vitamin B12 539 25-OH Vitamin D Total 43.3 TSH 0.83 Ur Specific [place] >= 1.030 H Urine Protein Negative Urine Glucose (UA) >=1000 H Urine Blood Negative Urine Nitrite Negative Ur Leukocyte Esterase Negative Microalb/Creat Ratio 7.4 Assessment and Plan Assessment & Plan (1) Right-sided low back pain with right-sided sciatica: Code(s): M54.41 - Lumbago with sciatica, right side Qualifiers: Chronicity: unspecified Qualified Code(s): M54.41 - Lumbago with sciatica, right side Plan: Will send patient for x-rays of the lumbar spine, right SI joint and right hip for further evaluation Patient is advised that further Tx plans, including physical therapy and/or chiropractic referral, will depend on his his x-rays come out He is advised for now to be careful with regards to his activities and weight- lifting and to avoid these and anything els for now that may aggravate his right lower back symptoms Of note, he had an abdominal CT done in 01/2021 that included incidental findings of mild degenerative facet joint arthropathy at L5-S1 and L4-L5 disc levels. No fracture, lytic or sclerotic process seen. Mild ventral spondylosis lower dorsal spine is noted Will start him on a trial of Gabapentin 100 mg Q HS to help with his symptoms, especially at night (2) Diabetes mellitus: Code(s): E11.9 - Type 2 diabetes mellitus without complications Qualifiers: Diabetes mellitus complication status: without complication Diabetes mellitus nursing home insulin use: without intermediate accountant use Diabetes mellitus type: type 2 Qualified Code(s): E11.9 - Type 2 diabetes mellitus without complications Plan: HgbA1c was at 7.1% on his labs done a few days ago; was previously at 7.3% a few months ago - goal is <7.0% Reinforced diabetic diet Continue Metformin 1000 mg BID, Jardiance 25 mg QD and Trulicity 4.5 mg SQ once a week He was also on Pioglitazone 15 mg QD but wanted to try cutting back on his medicines so we had him HOLD his Pioglitazone 15 mg QD a few months ago Follow up with endocrinology as scheduled (3) Benign essential hypertension: Code(s): I10 - Essential (primary) hypertension Plan: Reinforced low sodium diet - goal is systolic BP of at least 130 mm or less Continue Lisinopril 10 mg QD (4) Pure hypercholesterolemia: Code(s): E78.00 - Pure hypercholesterolemia, unspecified Plan: Results of his labs done a few days ago reviewed and discussed with patient Reinforced low cholesterol diet Continue Simvastatin 20 mg QD Will recheck his labs and fasting lipids in 4 months for follow-up (5) GERD without esophagitis: Code(s): K21.9 - Gastro-esophageal reflux disease without esophagitis Plan: Dietary restrictions reinforced Continue Omeprazole 20 mg QD (6) Vitamin D deficiency: Code(s): E55.9 - Vitamin D deficiency, unspecified Plan: Continue Vitamin D3 2000 units QD (7) Gout: Code(s): M10.9 - Gout, unspecified Qualifiers: Chronicity: unspecified Gout etiology: idiopathic Gout site: unspecified site Qualified Code(s): M10.00 - Idiopathic gout, unspecified site Plan: Patient reports no recent acute gout flare ups Reinforced low purine diet - serum uric acid remains normal when last checked last year (8) Recurrent cough: Code(s): R05.8 - Other specified cough Plan: Likely due to reactive airways, influenced in part, by his COVID infection last year but patient states that this seems to have calmed down a lot since his last visit Will have him continue using Albuterol HFA 2 inhalations Q 6 hours PRN for now If symptoms flare up again, can consider further evaluation and work up for possible ILD (9) Tinnitus, bilateral: Code(s): H93.13 - Tinnitus, bilateral Plan: Patient is advised that more often than not, ringing sensation in the ears is usually a sign of hearing loss Have advised him that his ear exam today revealed no hint or trace of ear wax in both of his ears [facility] (10) Tarsal tunnel syndrome of both lower extremities: Code(s): G57.53 - Tarsal tunnel syndrome, bilateral lower limbs Plan: Patient continues to report frequent pain in his feet and legs bilaterally, especially at night He will be trialed on Gabapentin Q HS for other issues and the Rx may also help with this (11) Obesity (BMI 30-39.9): Code(s): E66.9 - Obesity, unspecified Plan: Reinforced diet/exercise as tolerated /lose weight Plan Follow up in 4 months Orders: Orders XR lumbar spine 2-3V 09/18/23 M54.41 - Lumbago with sciatica, right side, M54.50 - Low back pain, unspecified Hemoglobin A1c 4 Months E11.9 - Type 2 diabetes mellitus without complications Comprehensive [place]. Panel Fast 4 Months E78.00 - Pure hypercholesterolemia, unspecified Vitamin B12 and Folate 4 Months E53.8 - Deficiency of other specified B group vitamins Uric Acid 4 Months M10.9 - Gout, unspecified XR sacroiliac joint min 3V 09/18/23 M54.41 - Lumbago with sciatica, right side XR hip RT min 2V 09/18/23 M25.551 - Pain in right hip, M54.41 - Lumbago with sciatica, right side Complete Blood Count Auto Diff 4 Months D64.9 - Anemia, unspecified Lipid Panel 4 Months E78.00 - Pure hypercholesterolemia, unspecified TSH reflex Free T4 4 Months E78.00 - Pure hypercholesterolemia, unspecified UA CC w/rflx Micro + Cult 4 Months R30.0 - Dysuria Microalbumin, Random (w Creat) 4 Months E11.9 - Type 2 diabetes mellitus without complications Vitamin D 25-OH Total 4 Months E55.9 - Vitamin D deficiency, unspecified Referrals Speech and Hearing Referral H91.90 - Unspecified hearing loss, unspecified ear, H93.13 - Tinnitus, bilateral Medications: New gabapentin 100 mg PO BEDTIME 30 days 30 caps 1RF Coding Level of Care Code Est Pt Level 4 (86325) Diagnoses Right-sided low back pain with right-sided sciatica, unspecified chronicity M54.41 Chronicity: unspecified Type 2 diabetes mellitus without complication, without long-term current use of insulin E11.9 Diabetes mellitus complication status: without complication Diabetes mellitus nursing home insulin use: without intermediate accountant use Diabetes mellitus type: type 2 Benign essential hypertension I10 Pure hypercholesterolemia E78.00 GERD without esophagitis K21.9 Vitamin D deficiency E55.9 Idiopathic gout, unspecified chronicity, unspecified site M10.00 Chronicity: unspecified Gout etiology: idiopathic Gout site: unspecified site Recurrent cough R05.8 Tinnitus, bilateral H93.13 Tarsal tunnel syndrome of both lower extremities G57.53 Obesity (BMI 30-39.9) E66.9 Additional Codes THEO-7 Assessment Billing - THEO-7 Assessment Tool: THEO-7 Assessment 34054 ([id number])
== END 2023-09-18 17:40 | disposition home or self-care (01) ==
PROVIDERS: PCP Internal Medicine; Visit Provider Internal Medicine
DX: M54.41 Lumbago with sciatica, right side (principal); E11.9 Type 2 diabetes mellitus without complications; E66.9 Obesity, unspecified; Z68.36 Body mass index [BMI] 36.0-36.9, adult; I10 Essential (primary) hypertension; E78.00 Pure hypercholesterolemia, unspecified; K21.9 Gastro-esophageal reflux disease without esophagitis; E55.9 Vitamin D deficiency, unspecified; M10.00 Idiopathic gout, unspecified site; R05.8 Other specified cough; H93.13 Tinnitus, bilateral; G57.53 Tarsal tunnel syndrome, bilateral lower limbs
CPT/HCPCS: 99214

== ENCOUNTER 2023-09-21 09:46 | Outpatient (REF) | payer OTHER, SELFPAY ==
--- NOTE | ~2023-09-21 | XR_ITS ---
EXAMINATION: XR HIP, RIGHT CLINICAL INFORMATION: Pain. COMPARISON: None available. TECHNIQUE: AP and frog-leg lateral views of the right hip. FINDINGS: Bony alignment and mineralization are normal. The right acetabular joint space is well-maintained. There is a small peripheral osteophyte of the right acetabular roof. The right femoral head appears smooth. No fracture or dislocation is seen. The soft tissue planes are unremarkable, without foreign body. There are pelvic phleboliths. XR/XR hip RT min 2V IMPRESSION: There is mild osteoarthritic change of the right hip. No fracture or dislocation is seen.
--- NOTE | ~2023-09-21 | XR_ITS ---
EXAMINATION: XR LUMBOSACRAL SPINE CLINICAL INFORMATION: Lower back pain. COMPARISON: CT abdomen and pelvis dated 02/06/2021. TECHNIQUE: AP and lateral views of the lumbar spine and lateral view of the lumbosacral junction. FINDINGS: There is mild bony demineralization. There are mild T12 and L1 anterior compression fractures. At L1-L2, there is moderate disc space narrowing, with vacuum disc phenomenon. At L5-S1, there is moderate disc space narrowing and a 5 mm anterolisthesis. The remaining disc spaces are relatively well-maintained. No acute fracture or spondylolisthesis is seen. There is multi-level lower thoracic and lumbar anterior endplate arthropathy. There is facet arthropathy, most pronounced at L4-L5 and L5-S1. There are aortoiliac atherosclerotic calcifications. Right upper quadrant surgical clips are seen. There are pelvic phleboliths. XR/XR sacroiliac joint min 3V IMPRESSION: 1. There are mild T12 and L1 anterior wedge compression fractures, stable from the CT examination of 02/06/2021. 2. There is moderate degenerative disc disease at L1-L2, mild degenerative disc disease at L2-L3, and moderately severe degenerative disc disease is seen at L5-S1. 3. There is multi-level thoracolumbar endplate arthropathy. 4. There is facet arthropathy, most pronounced at L4-L5 and L5-S1. EXAMINATION: XR SACROILIAC JOINTS CLINICAL INFORMATION: Lumbago with right sciatica. COMPARISON: None available. TECHNIQUE: AP and bilateral Judet views of the sacroiliac joints FINDINGS: Bones and soft tissues are normal. No fracture. Alignment is anatomic. Sacroiliac joint spaces are well-maintained without erosions or surrounding sclerosis. There are pelvic phleboliths. IMPRESSION: Normal sacroiliac joints.
--- NOTE | ~2023-09-21 | XR_ITS ---
EXAMINATION: XR LUMBOSACRAL SPINE CLINICAL INFORMATION: Lower back pain. COMPARISON: CT abdomen and pelvis dated 02/06/2021. TECHNIQUE: AP and lateral views of the lumbar spine and lateral view of the lumbosacral junction. FINDINGS: There is mild bony demineralization. There are mild T12 and L1 anterior compression fractures. At L1-L2, there is moderate disc space narrowing, with vacuum disc phenomenon. At L5-S1, there is moderate disc space narrowing and a 5 mm anterolisthesis. The remaining disc spaces are relatively well-maintained. No acute fracture or spondylolisthesis is seen. There is multi-level lower thoracic and lumbar anterior endplate arthropathy. There is facet arthropathy, most pronounced at L4-L5 and L5-S1. There are aortoiliac atherosclerotic calcifications. Right upper quadrant surgical clips are seen. There are pelvic phleboliths. XR/XR lumbar spine 2-3V IMPRESSION: 1. There are mild T12 and L1 anterior wedge compression fractures, stable from the CT examination of 02/06/2021. 2. There is moderate degenerative disc disease at L1-L2, mild degenerative disc disease at L2-L3, and moderately severe degenerative disc disease is seen at L5-S1. 3. There is multi-level thoracolumbar endplate arthropathy. 4. There is facet arthropathy, most pronounced at L4-L5 and L5-S1. EXAMINATION: XR SACROILIAC JOINTS CLINICAL INFORMATION: Lumbago with right sciatica. COMPARISON: None available. TECHNIQUE: AP and bilateral Judet views of the sacroiliac joints FINDINGS: Bones and soft tissues are normal. No fracture. Alignment is anatomic. Sacroiliac joint spaces are well-maintained without erosions or surrounding sclerosis. There are pelvic phleboliths. IMPRESSION: Normal sacroiliac joints.
== END 2023-09-21 09:47 | disposition home or self-care (01) ==
LOC: HO.XRAY 09:46
PROVIDERS: PCP Internal Medicine; Visit Provider Internal Medicine
DX: M48.55XA Collapsed vertebra, not elsewhere classified, thoracolumbar region, initial encounter for fracture (principal); M51.36 Other intervertebral disc degeneration, lumbar region; M47.816 Spondylosis without myelopathy or radiculopathy, lumbar region; M16.11 Unilateral primary osteoarthritis, right hip
CPT/HCPCS: 72100; 72202; 73502

== ENCOUNTER 2023-10-06 10:58 | Outpatient (AMB) | payer OTHER, SELFPAY ==
--- NOTE | 2023-10-06 11:03 | MHC.AMNUTRGE ---
VS Expanded 10/06/23 11:04 10/06/23 11:18 Height 5 ft 11 in 5 ft 11 in Weight 263 lb 0.183 oz 263 lb BMI 36.7 36.7 Intake Visit Reasons: DM/ CONFIRMED Allergies No Known Allergies Allergy (Verified 09/18/23 17:22) Nutrition Presentation Details: Pt presents for MNT for f/u for T2DM Pt reports increasing on empty calorie snacks and keeping less active. BS Monitoring Most Recent Diabetes Results: Microalb/Creat Ratio 7.4 ug/mg cr (<30) 09/14/23 Cholesterol 142 mg/dL (<200) 09/14/23 HDL Cholesterol 42 mg/dL (>40) 09/14/23 Triglycerides 133 mg/dL (<150) 09/14/23 Creatinine 1.38 mg/dL (0.5-1.4) 09/14/23 Blood Urea Nitrogen 22 mg/dL (9-16) H 09/14/23 Sodium 143 mmol/L (135-145) 09/14/23 Potassium 4.2 mmol/L (3.3-5.1) 09/14/23 Chloride 108 mmol/L (96-108) 09/14/23 Carbon Dioxide 27 mmol/L (22-29) 09/14/23 Calcium 9.3 mg/dL (8.4-10.2) 09/14/23 AST 16 U/L (5-37) 09/14/23 ALT 24 U/L (0-40) 09/14/23 Total Protein 6.6 g/dL (6.5-8.0) 09/14/23 Albumin 4.0 g/dL (3.5-5.0) 09/14/23 TAW-Cdjekxu-Rb.Jeor Equation Height: 5 ft 11 in Weight: 263 lb Resting Metabolic Rate: 2008.00 Calculated Activity Level: Sedentary Calories Needed to Maintain Weight: 2410.80 [facility] Medical History Left inguinal hernia Tachycardia Incisional hernia Recurrent umbilical hernia Ventral hernia Umbilical hernia Median nerve neuropathy Obesity (BMI 30-39.9) Tarsal tunnel syndrome of both lower extremities Gout Vitamin D deficiency Degenerative arthritis of left shoulder region Mild anemia GERD without esophagitis Pure hypercholesterolemia Benign essential hypertension Diabetes mellitus Surgical History History of left inguinal hernia repair History of umbilical hernia repair (~03/2021) Hx of colonoscopy Hx of cholecystectomy Hx of rotator cuff surgery Hx of umbilical hernia repair Hx of hernia repair Family History Father No problems noted. Mother No problems noted. Social History Household Members: Family Housing: House Are you a primary children's zoo caretaker to a significant other at home: No Do you presently have visiting nurse or other home services: No Alcohol intake: current Alcohol intake frequency: holidays/special occasions only Patient Tobacco Use Status: Former Tobacco user Quit Date: cigars 4 months ago Tobacco use type: Cigarette and Cigar Cigarettes Per Day: 2 Years Smoked: 30 e-Cigarette/Vaping Use: Never Used service: No Current occupational status: unemployed Cognitive needs: No Hearing needs: Yes Vision needs: Yes Assessment & Plan Assessment & Plan (1) Diabetes mellitus: Code(s): E11.9 - Type 2 diabetes mellitus without complications Category: Medical Qualifiers: Diabetes mellitus complication status: without complication Diabetes mellitus fdc insulin use: without fdc use Diabetes mellitus type: type 2 Qualified Code(s): E11.9 - Type 2 diabetes mellitus without complications Plan: Continue working towards 2000- calories per day low in fat and high in fiber USED WEIGHT: 122 kg (269lbs) (04/2022) , 240 lbs (109 kg) (03/2023), 119 kg (09/2023) est protein needs as per 1 g/kg current body weight : 109 g/d est fluid needs as per 25 ml/kg bw: 3300 ml/d Rec fiber intake : 30-38 g /day or as tolerated Rec Na intake : < 2000 mg/d Review low sodium food sources REview antioxidant sources o ffoods and role in diet/health Hypoglycemia protocol , prevention and treatment Mindful eating strategies Role of physical activity BMI at 38.3 on 10/25/20, BMI 37.6 on 02/04/21, BMI at 37.4 (12/09/20), 38.3 on 07/29/21 BMI 39.4 on 10/28/21, BMI at 39 on 12/31/21, BMI 38 on 04/02/22, BMI at 35.8 (10/07/22), BMI 33.6 (03/2023) A1c at 7.3% on 09/2021, 7.3% on 01/2022, 6.8% (06/2022),, 6.3 on 10/2022 Patient Instructions: Reduce on snacks (chips, pastries, cookies the like) have a fruit at least twice a day Resume following healthy plate method at lunch and dinner Keep hydrated , by having water with meals, herb/fruit infused water . Coding Level of Care Code Nutr Indiv Subseq (05353) Diagnoses Type 2 diabetes mellitus without complication, without long-term current use of insulin E11.9 Diabetes mellitus complication status: without complication Diabetes mellitus fdc insulin use: without equipment operator intermodal yard use Diabetes mellitus type: type 2 Time Spent (min) 30
[2023-10-06 11:04] VITALS: BMI 36.7
[2023-10-13 12:56] VITALS: BMI 36.7
== END 2023-10-06 11:33 | disposition home or self-care (01) ==
PROVIDERS: PCP Internal Medicine; Visit Provider Dietitian, Registered
DX: E11.9 Type 2 diabetes mellitus without complications (principal)

== ENCOUNTER → 2023-10-06 10:58 | Outpatient (BNVA) | payer OTHER, SELFPAY | PROVIDERS: PCP Internal Medicine; Visit Provider Dietitian, Registered | DX: E11.9 Type 2 diabetes mellitus without complications (principal); Z71.3 Dietary counseling and surveillance | CPT/HCPCS: 97803 ==

== ENCOUNTER 2023-10-06 12:23 | Outpatient (REF) | payer OTHER, SELFPAY | END 2023-10-06 12:24 | disposition home or self-care (01) | LOC: HO.SH 12:23 | PROVIDERS: Visit Provider Internal Medicine | DX: H90.3 Sensorineural hearing loss, bilateral (principal); H93.13 Tinnitus, bilateral | CPT/HCPCS: 92557; 92567 ==

== ENCOUNTER 2023-12-11 11:00 | Outpatient (RCR) | payer OTHER, SELFPAY ==
--- NOTE | 2023-11-13 14:05 | MHC.PT.EP ---
[facility] [place] [facility] [place] [facility] [place] Office [address] Liana Dupree [address] [phone] F: [phone] F: [phone] F: [phone] F: [phone] Physical Therapy Plan of Care Date of Evaluation: 11/13/23 Date of Surgery: Diagnosis: R-sided lumbago Assessment: 63 y/o male referred to PT with R low back pain. He presents with R lumbar dysfunction, overlapping lumbar derangement, and R knee OA resulting in pain and difficulty with walking, standing, exercise, lifting, bending, and playing golf. Examination shows decreased lumbar AROM, decreased hip/ abdominal strength (holds breath), hypomobile R patella mobility, pain, and impaired gait pattern. Recommend PT 2x/week for 5 weeks to address impairments, implement HEP, and optimize functional mobility. Frequency and Duration: The patient will be seen 2x/week for 5 weeks Short Term Goals: 3 weeks I with HEP Pt will demonstrate core stabilization exercises without breath holding >75% of the time Hazardous Waste Material Technician Goals: 5 weeks I with HEP and self management of sx Pt will demonstrate 4/5 B LE strength to facilitate daily tasks Pt will improve Oswestry to 15/50 (IR 26/50) Treatment Plan: Modalities to reduce pain, spasms and effusion. Manual therapy to restore motion and function. Therapeutic exercise to improve strength and flexibility. Neuromuscular re-education for posture and balance. Therapeutic activities to return to functional activities of daily living. Electronically signed by: Gladis Neri PT Please sign and return to therapist. Thank you for your referral.
--- NOTE | 2023-12-11 12:47 | MHC.PT.DC ---
[facility] [place] [facility] [place] [facility] [place] Office [address] Liana Dupree [address] [phone] F: [phone] F: [phone] F: [phone] F: [phone] Physical Therapy Discharge Report Diagnosis: R-sided lumbago Date of Surgery: Date of Evaluation: 11/13/23 Date of Discharge: 12/11/23 Treatments to Date: 9 Cancellations to Date: 0 No Shows to Date: 0 Discharge Status: Improved Function Independent with HEP Discharge Summary: Pt reports overal good days and bad days with B knee OA. His sciatica sx however have resolved. We have gradually built up his HEP and he is now walking 30 minutes a day. At this time, will d/c to I HEP. NO further questions. Electronically signed by: Gladis Neri PT Please sign and return to therapist. Thank you for your referral.
== END 2023-12-11 12:48 | disposition home or self-care (01) ==
LOC: HO.PTCHIC 11:00
PROVIDERS: PCP Internal Medicine; Visit Provider Internal Medicine
DX: M54.41 Lumbago with sciatica, right side (principal)
CPT/HCPCS: 97110; 97140; 97162

== ENCOUNTER 2024-01-27 08:26 | Outpatient (REF) | payer OTHER, SELFPAY ==
[2024-01-27 09:59] LABS: MANUAL DIFF FLAG NO
[2024-01-27 10:15] LABS: Basophils Absolute Auto 0.1 X10*3/uL (0.0-0.2); Basophils Percent Auto 0.6 % (0-2); Eosinophils Absolute Auto 0.2 X10*3/uL (0.0-0.4); Eosinophils Percent Auto 1.7 % (0-4); Estimated Average Glucose 146 mg/dL; Hematocrit 41.6 % (42.0-52.0); Hemoglobin 13.6 g/dl (14.0-18.0); Hemoglobin A1c % 6.7 % (<6.0); Imm Gran Abs Auto 0.03 X10*3/uL (0.00-0.03); Imm Gran Pct Auto 0.3 % (0.0-0.4); Lymphocytes Absolute Auto 3.8 X10*3/uL (1.2-4.9); Lymphocytes Percent Auto 34.7 % (20-40); Mean Corpuscular HGB Conc 32.7 g/dl (31.0-36.0); Mean Corpuscular Hemoglobin 27.9 pg (27.0-33.0); Mean Corpuscular Volume 85.2 fL (80.0-98.0); Mean Platelet Volume 10.5 fL (9.4-12.4); Monocytes Percent Auto 9.6 % (2-11); Neutrophils Absolute Auto 5.8 x10*3/uL (2.0-8.3); Neutrophils Percent Auto 53.1 % (45-73); Platelet Count 248 X10*3/uL (160-400); Red Blood Count 4.88 X10*6/uL (4.60-5.80); Red Cell Distribution Width 13.8 % (11.0-16.0); White Blood Count 10.8 X10*3/uL (4.8-10.8)
[2024-01-27 10:35] LABS: Appearance Urine Clear; Color Urine Yellow; Glucose Urine UA >=1000 mg/dL (Negative); Leukocyte Esterase Urine Negative (Negative); Nitrite Urine Negative (Negative); PH 5.5 (5.0-9.0); Specific Gravity - Urine >= 1.030 (1.005-1.025); UMIC TRIGGER UACC YES; Urine Blood Negative (Negative); Urine Ketones Negative (Negative); Urine Protein Negative (Neg-Trace)
[2024-01-27 10:39] LABS: Bacteria Urine None Seen (None Seen); Hyaline Casts Urine 0-2 /LPF (0-2); RBC Urine 0-2 /HPF (0-2); Squamous Epithelial Cell Urine 0-2 /HPF (0-2); WBC Urine 0-5 /HPF (0-5)
[2024-01-27 10:41] LABS: Alanine Aminotransferase 26 U/L (0-40); Albumin Level 4.2 g/dL (3.5-5.0); Alkaline Phosphatase 59 U/L (39-117); Anion Gap 13 (12-20); Aspartate Amino Transferase 19 U/L (5-37); Bilirubin Total 0.4 mg/dL (0.0-1.0); Blood Urea Nitrogen 23 mg/dL (9-16); Calcium 9.7 mg/dL (8.4-10.2); Carbon Dioxide 24 mmol/L (22-29); Chloride 108 mmol/L (96-108); Cholesterol 140 mg/dL (<200); Estimated Glomerular Filt Rate > 60; Glucose Fasting 151 mg/dL (60-99); HDL Cholesterol 36 mg/dL (>40); LDL Cholesterol Calculated 70 mg/dL (<100); Potassium 4.1 mmol/L (3.3-5.1); Sodium 141 mmol/L (135-145); Total Protein 6.7 g/dL (6.5-8.0); Triglycerides 172 mg/dL (<150)
[2024-01-27 10:45] LABS: Creatinine Urine 70.34 mg/dL; Microalbum/Creatinine Ratio Ur 11.3 ug/mg cr (<30); TSH reflex Free T4 1.07 uIU/mL (0.32-4.0)
[2024-01-27 10:59] LABS: Vitamin B12 449 pg/mL (200-900)
[2024-02-01 21:09] LABS: Testosterone, Free 63.4 pg/mL (35.0-155.0); Testosterone, Total 311 ng/dL (250-1100)
== END 2024-01-27 08:27 | disposition home or self-care (01) ==
LOC: HO.HMGCLDS 08:26
PROVIDERS: PCP Internal Medicine; Visit Provider Internal Medicine
DX: E11.9 Type 2 diabetes mellitus without complications (principal); E78.00 Pure hypercholesterolemia, unspecified; D64.9 Anemia, unspecified; R79.89 Other specified abnormal findings of blood chemistry; M10.9 Gout, unspecified; E53.8 Deficiency of other specified B group vitamins; E55.9 Vitamin D deficiency, unspecified
CPT/HCPCS: 36415; 80053; 80061; 81001; 81003; 82043; 82306; 82570; 82607; 82746; 83036; 84402; 84403; 84443; 84550; 85025

== ENCOUNTER 2024-01-27 16:42 | Outpatient (AMB) | payer OTHER, SELFPAY ==
[2024-01-27 16:44] VITALS: BP 120/78; PULSE 103; O2SAT 96; BMI 34.6
--- NOTE | 2024-01-27 16:44 | MHC.PC.OV ---
Vital Signs 01/27/24 16:44 Height 5 ft 11 in Weight 248 lb BMI 34.6 BP 120/78 Blood Pressure Location Lt brachial Position Sitting Pulse 103 H Pulse Source Pulse Oximeter Pulse Oximetry (%) 96 Oxygen Delivery Method Room Air Intake Visit Reasons: DM, HTN, hyperlipidemia Suspender Maker Required: No Accompanied by: Self / Same As Patient Allergies No Known Allergies Allergy (Verified 01/27/24 17:20) Medication List - Last Reconciled 01/27/24 by Rosendo Chiang MD albuterol sulfate 90 mcg/actuation (Ventolin HFA) 2 puffs inhalation Q6H PRN 30 days blood sugar diagnostic (FreeStyle Lite Strips) As directed once a day blood-glucose meter (FreeStyle Lite Meter kit) As directed cholecalciferol (vitamin D3) 50 mcg PO DAILY 90 days empagliflozin (Jardiance) 25 mg PO QAM flash glucose scanning reader (RemarkStyle Reinier 2 [place]) As directed flash glucose sensor (FreeStyle Reinier 2 Sensor kit) As directed every 2 weeks [id number]-[id number] C-Mn 500-400 mg caps PO ibuprofen 600 mg PO Q6H PRN lisinopril 10 mg PO DAILY 90 days metformin 1,000 mg PO BID 90 days multivitamin 1 tab PO DAILY omeprazole 20 mg PO DAILY 90 days pioglitazone 15 mg PO DAILY 90 days semaglutide (Ozempic) 2 mg (0.75 mL) subcut QWEEK 4 weeks simvastatin 20 mg PO BEDTIME 90 days Tobacco use date assessed: 01/27/24 Fall risk assessment: No Falls in past year Last assessed Fall Risk: 01/27/24 Dental Screening Dental Screen Date: 01/27/24 Did you have a dental visit in the last 12 months?: Yes Did you have a dental problem in the last 6 months where you did not have access to dental care?: No Was dental information given to patient?: Patient has dentist HPI DM, HTN, hyperlipidemia HPI Details Patient comes in today for his follow up visit States that he feels okay He denies any headaches or dizziness Denies any chest pains, no SOB No nausea/vomiting, no abdominal pain No change in bowel habits noted States that his previous right-sided sciatica pain and low back pain have improved a lot with physical therapy and he continues to do the exercises for his back that he was taught by physical therapy on a regular basis Adds that he has been experiencing increasing pain in his right knee for a few weeks now - notes that his knee pain feels worse with prolonged standing or walking; denies any recent injury or trauma to his knee He had his follow up labs done earlier this morning - to discuss his results [facility] Medical History (Updated 01/27/24 @ 18:14 by Rosendo Chiang MD) Left inguinal hernia Incisional hernia Recurrent umbilical hernia Median nerve neuropathy Obesity (BMI 30-39.9) Tarsal tunnel syndrome of both lower extremities Gout Vitamin D deficiency Degenerative arthritis of left shoulder region Mild anemia GERD without esophagitis Pure hypercholesterolemia Benign essential hypertension Diabetes mellitus Surgical History History of left inguinal hernia repair History of umbilical hernia repair (~03/2021) Hx of colonoscopy Hx of cholecystectomy Hx of rotator cuff surgery Hx of umbilical hernia repair Hx of hernia repair Family History Father No problems noted. Mother No problems noted. Social History Household Members: Family Housing: House Are you a primary career guidance counselor to a significant other at home: No Do you presently have visiting nurse or other home services: No Alcohol intake: current Alcohol intake frequency: holidays/special occasions only Patient Tobacco Use Status: Former Tobacco user Tobacco use type: Cigarette and Cigar Cigarettes Per Day: 2 Years Smoked: 30 e-Cigarette/Vaping Use: Never Used service: No Current occupational status: unemployed Cognitive needs: No Hearing needs: Yes Vision needs: Yes Questionnaire PHQ-9 Over the last 2 weeks, how often have you been bothered by any of the following problems? 1. Little interest or pleasure in doing things: nearly every day 2. Feeling down, depressed, or hopeless: more than half the days 3. Trouble falling or staying asleep, or sleeping too much: nearly every day 4. Feeling tired or having little energy: nearly every day 5. Poor appetite or overeating: more than half the days 6. Feeling bad about yourself - or that you are a failure or have let yourself or your family down: more than half the days 7. Trouble concentrating on things, such as reading the newspaper or watching television: not at all 8. Moving or speaking so slowly that other people could have noticed. Or the opposite - being so fidgety or restless that you have been moving around a lot more than usual: nearly every day 9. Thoughts that you would be better off or of hurting yourself in some way: not at all Total score: 18 Depression Screening Interpretation: Positive Depression Screening Follow-up: Existing condition and In treatment Depression Screening Done: Yes 71992 - PHQ-9 Billing: Yes Source: Developed by Drs. Nii Blevins, Heydi Fuentes, Ayo Escamilla and colleagues, with an educational matt from [employer]. Thrive Questionnaire Date Thrive assessed: 01/27/24 I am a: Patient What is your living situation today?: I have a steady place to live Within the past 12 months, did the food you bought not last and you didn't have the money to get more?: Never true Within the past 12 months, did you worry whether your food would run out before you got money to buy more?: Never true Do you have trouble paying for medicines?: No Do you have trouble getting transportation to medical appointments?: No Do you have trouble paying your heating and electricity bill?: No Do you have trouble taking care of your child, family member or friend?: No Do you have trouble with day-to-day activities such as bathing, preparing meals, shopping, managing finances, etc.?: No Are you currently unemployed and looking for a job?: No Are you interested in more education?: No Please select the resources that you would like help with: None Currently or been in a relationship where the following occur: No concerns reported THRIVE Score: 0 AUDIT C Alcohol Use Questionnaire (AUDIT-C) 1. How often do you have a drink containing alcohol?: Never 3. How often do you have six or more drinks on one occasion?: Never Total Score: 0 Score Reviewed/Action Taken: Yes THEO-7 AMB Questionnaire THEO-7 Date THEO - 7 assessed: 01/27/24 Feeling nervous, anxious, or on edge: 0 = Not at all Not being able to stop or control worryin = Several days Worrying too much about different things: 2 = More than half the days Trouble relaxin = Several days Being so restless that it is hard to sit still: 2 = More than half the days Becoming easily annoyed or irritable: 2 = More than half the days Feeling afraid as if something awful might happen: 0 = Not at all Total THEO-7 score (0-4 normal; 5-9 mild; 10-14 moderate; 15-21 severe): 8 Source: Developed by Drs. Nii Blevins, Heydi Fuentes, Ayo Escamilla and colleagues, with an educational matt from [employer]. THEO-7 Assessment Billing THEO-7 Assessment Tool: THEO-7 Assessment 98528 Review of Systems Const Denies chills, Denies fatigue, Denies fever(s) and Denies headache(s) ENT Denies dysphagia, Denies dizziness, Denies otalgia, Denies headache(s), Reports hearing loss, Denies neck pain, Denies odynophagia, Reports tinnitus (in both ears - persistent) and Denies sore throat Card Denies chest pain, Denies palpitations and Denies dyspnea Resp Denies chest congestion, Denies cough and Denies dyspnea GI Denies abdominal pain, Denies constipation, Denies dysphagia, Denies heartburn, Denies diarrhea, Denies nausea, Denies odynophagia and Denies vomiting Denies dysuria, Denies nocturia and Denies urinary frequency Musc Reports back pain (over the right lower back - improved from previous with physical therapy), Reports arthralgias (increased over the right knee) and Denies neck pain Skin/Breast Denies rash Neuro Denies dizziness and Denies headache(s) Endo Denies fatigue and Denies palpitations Physical exam (Primary Care) Vital Signs: Last Vital Signs Pulse 103 H 01/27/24 16:44 BP 120/78 01/27/24 16:44 Pulse Ox 96 01/27/24 16:44 Oxygen Delivery Method Room Air 01/27/24 16:44 BMI result Body Mass Index 34.6 Tobacco/Smoking Status: Tobacco use Status Tobacco use date assessed 01/27/24 01/27/24 16:52 Patient Tobacco Use Status Former Tobacco user 01/27/24 16:52 Tobacco use type Cigarette,Cigar 01/27/24 16:52 e-Cigarette/Vaping Use Never Used 01/27/24 16:52 PHQ-9: PHQ-9 Score PHQ-9: Total score 18 01/27/24 17:56 Depression Screening Interpretation: Positive Depression Screening Follow-up: Existing condition and In treatment Thrive Assessment: Date of Thrive Assessment Date Thrive assessed 01/27/24 01/27/24 16:52 Currently or been in a relationship where the following occur: No concerns reported Const General: no acute distress and alert HENMT Ears: TM's normal bilaterally and EAC's normal Throat: Yes posterior oropharynx normal and Yes tonsils normal (no TP congestion noted) Neck Neck: Yes no lymphadenopathy and Yes supple Thyroid: Thyroid normal Resp Auscultation: clear to auscultation bilaterally, no rales and no wheezes Cardio Rate: regular rate Rhythm: regular rhythm Heart sounds: no murmurs GI Palpation (GI): Soft to palpation and nontender Auscultation: normal bowel sounds General: Yes no CVA tenderness Back/Spine/Pelvis Back: no CVA tenderness Thoracic/Lumbar Spine: No paraspinal muscle tenderness and lumbar spinal tenderness (mild) Skin Rashes: no rashes Extrem General: Yes no clubbing, cyanosis or edema Right lower extremity: knee Details: tenderness Location: of the pre-patellar area and of the infrapatellar area; no swelling Results Reviewed Results Reviewed: Laboratory Tests 01/27/24 08:28 WBC 10.8 Hgb 13.6 L Hct 41.6 L Plt Count 248 Sodium 141 Potassium 4.1 Creatinine 1.16 Estimated GFR > 60 Fasting Glucose 151 H Hemoglobin A1c % 6.7 H Uric Acid 7.0 Calcium 9.7 AST 19 ALT 26 Triglycerides 172 H Cholesterol 140 LDL Cholesterol, Calc 70 HDL Cholesterol 36 L Vitamin B12 449 25-OH Vitamin D Total 48.0 TSH 1.07 Ur Specific [place] >= 1.030 H Urine Protein Negative Urine Glucose (UA) >=1000 H Urine Blood Negative Urine Nitrite Negative Ur Leukocyte Esterase Negative Microalb/Creat Ratio 11.3 Assessment and Plan Assessment & Plan (1) Diabetes mellitus: Code(s): E11.9 - Type 2 diabetes mellitus without complications Qualifiers: Diabetes mellitus complication status: without complication Diabetes mellitus snf insulin use: without remote computer terminal operator use Diabetes mellitus type: type 2 Qualified Code(s): E11.9 - Type 2 diabetes mellitus without complications Plan: His HgbA1c was at 6.7% on his labs done earlier this morning; was previously at 7.1% a few months ago - goal is <7.0% Reinforced diabetic diet Continue Jardiance 25 mg QD and Ozempic 2 mg SQ once a week; he is also currently on Metformin 1000 mg BID but would like to try having this lowered in dose if possible now that his diabetes is under much better control with Ozempic Will try lowering his Metformin to 500 mg BID We HELD his Pioglitazone 15 mg QD a few months ago at his request and he has not needed to go back on it at all - will now D/C Pioglitazone Follow up with diabetic mild disabilities teacher as scheduled (2) Benign essential hypertension: Code(s): I10 - Essential (primary) hypertension Plan: Reinforced low sodium diet - goal is systolic BP of at least 130 mm or less Continue Lisinopril 10 mg QD (3) Pure hypercholesterolemia: Code(s): E78.00 - Pure hypercholesterolemia, unspecified Plan: Results of his labs done earlier today reviewed and discussed with patient Reinforced low cholesterol diet Continue Simvastatin 20 mg QD Will recheck his labs and fasting lipids in 4 months for follow-up (4) GERD without esophagitis: Code(s): K21.9 - Gastro-esophageal reflux disease without esophagitis Plan: Dietary restrictions reinforced Continue Omeprazole 20 mg QD (5) Vitamin D deficiency: Code(s): E55.9 - Vitamin D deficiency, unspecified Plan: Continue Vitamin D3 2000 units QD (6) Gout: Code(s): M10.9 - Gout, unspecified Qualifiers: Chronicity: unspecified Gout etiology: idiopathic Gout site: unspecified site Qualified Code(s): M10.00 - Idiopathic gout, unspecified site Plan: Patient reports no recent acute gout flare ups Reinforced low purine diet - serum uric acid remains normal when last checked last year (7) Recurrent cough: Code(s): R05.8 - Other specified cough Plan: IMPROVED - was likely due to some reactive airway issue that may have been triggered in part by his COVID infection last year but patient states that this has calmed down a lot over the past few month Continue Albuterol HFA 2 inhalations Q 6 hours PRN only If symptoms flare up again, will consider further evaluation and work up for possible ILD (8) Right-sided low back pain with right-sided sciatica: Code(s): M54.41 - Lumbago with sciatica, right side Qualifiers: Chronicity: unspecified Qualified Code(s): M54.41 - Lumbago with sciatica, right side Plan: X-rays of the lumbar spine done a few months ago revealed (+) multilevel degenerative disc disease but no acute findings Right hip x-rays show (+) mild OA changes in the hip SI joint x-rays were normal He was started on a trial of Gabapentin 100 mg Q HS to help with his symptoms, especially at night but he states that it did not help He was sent for physical therapy of his lower back and hip and states that PT has helped him a lot and that he continues to perform the exercises for his lower back and hip that were taught by physical therapy on a regular basis (9) Tarsal tunnel syndrome of both lower extremities: Code(s): G57.53 - Tarsal tunnel syndrome, bilateral lower limbs Plan: Patient continues to report frequent pain in his feet and legs bilaterally, especially at night He was trialed on Gabapentin 100 mg Q HS, which he states did not help; recalls taking some of his sister's 300 mg Gabapentin in the past that helped somewhat but he does not want to take Gabapentin again at this time (10) Right knee pain: Code(s): M25.561 - Pain in right knee Qualifiers: Chronicity: unspecified Qualified Code(s): M25.561 - Pain in right knee Plan: Will send him for x-rays of the right hip ELISA for further evaluation Discussed that his knee symptoms are likely due to OA Will also go ahead and refer him to orthopedics (patient requested going to [facility]) for further evaluation and management (11) Obesity (BMI 30-39.9): Code(s): E66.9 - Obesity, unspecified Plan: Reinforced diet/exercise as tolerated /lose weight - he has lost a lot of weight (at least 15 pounds) since his last visit, which he is attributing to Ozempic Plan Follow up in 4 months Orders: Orders Complete Blood Count Auto Diff 4 Months D64.9 - Anemia, unspecified Comprehensive [place]. Panel Fast 4 Months E78.00 - Pure hypercholesterolemia, unspecified Microalbumin, Random (w Creat) 4 Months E11.9 - Type 2 diabetes mellitus without complications TSH reflex Free T4 4 Months E78.00 - Pure hypercholesterolemia, unspecified UA CC w/rflx Micro + Cult 4 Months R30.0 - Dysuria Vitamin D 25-OH Total 4 Months E55.9 - Vitamin D deficiency, unspecified XR knee RT 4V Today M25.561 - Pain in right knee Lipid Panel 4 Months E78.00 - Pure hypercholesterolemia, unspecified Hemoglobin A1c 4 Months E11.9 - Type 2 diabetes mellitus without complications Referrals Orthopedics Referral M25.561 - Pain in right knee Medications: Changed From metformin 1,000 mg PO BID 90 days 180 tabs 0RF E11.65 - Type 2 diabetes mellitus with hyperglycemia To metformin 500 mg PO BID 90 days 180 tabs 1RF E11.65 - Type 2 diabetes mellitus with hyperglycemia Discontinued pioglitazone Discontinued Reason: Doctor's Order 15 mg PO DAILY 90 days 90 tabs 1RF Coding Level of Care Code Est Pt Level 4 (53399) Complex EM visit Add On G2211 Diagnoses Type 2 diabetes mellitus without complication, without long-term current use of insulin E11.9 Diabetes mellitus complication status: without complication Diabetes mellitus remote computer terminal operator insulin use: without snf use Diabetes mellitus type: type 2 Benign essential hypertension I10 Pure hypercholesterolemia E78.00 GERD without esophagitis K21.9 Vitamin D deficiency E55.9 Idiopathic gout, unspecified chronicity, unspecified site M10.00 Chronicity: unspecified Gout etiology: idiopathic Gout site: unspecified site Recurrent cough R05.8 Right-sided low back pain with right-sided sciatica, unspecified chronicity M54.41 Chronicity: unspecified Tarsal tunnel syndrome of both lower extremities G57.53 Right knee pain, unspecified chronicity M25.561 Chronicity: unspecified Obesity (BMI 30-39.9) E66.9 Additional Codes THEO-7 Assessment Billing - THEO-7 Assessment Tool: THEO-7 Assessment 66722 ([id number])
== END 2024-01-27 17:40 | disposition home or self-care (01) ==
PROVIDERS: PCP Internal Medicine; Visit Provider Internal Medicine
DX: E11.9 Type 2 diabetes mellitus without complications (principal); I10 Essential (primary) hypertension; E78.00 Pure hypercholesterolemia, unspecified; K21.9 Gastro-esophageal reflux disease without esophagitis; E55.9 Vitamin D deficiency, unspecified; M10.00 Idiopathic gout, unspecified site; R05.8 Other specified cough; M54.41 Lumbago with sciatica, right side; E66.9 Obesity, unspecified; Z68.34 Body mass index [BMI] 34.0-34.9, adult; G57.53 Tarsal tunnel syndrome, bilateral lower limbs; M25.561 Pain in right knee
CPT/HCPCS: 99214

== ENCOUNTER 2024-01-28 10:45 | Outpatient (REF) | payer OTHER, SELFPAY ==
--- NOTE | ~2024-01-28 | XR_ITS ---
EXAMINATION: XR KNEE, RIGHT CLINICAL INFORMATION: Back pain. COMPARISON: None available. TECHNIQUE: 4 views of the right knee. FINDINGS: Trace joint effusion. Mild narrowing of the medial compartment. Tiny tricompartmental osteophytes. Extensive vascular calcifications. XR/XR knee RT 4V IMPRESSION: Mild degenerative changes. Electronically signed by: Rosa James MD 02/03/2024 07:42 AM EDT RP
== END 2024-01-28 10:46 | disposition home or self-care (01) ==
LOC: HO.XRAY 10:45
PROVIDERS: PCP Internal Medicine; Visit Provider Internal Medicine
DX: M25.561 Pain in right knee (principal)
CPT/HCPCS: 73564

== ENCOUNTER 2024-04-07 10:39 | Outpatient (AMB) | payer OTHER, SELFPAY ==
--- NOTE | 2024-04-07 10:57 | MHC.AMNUTRGE ---
VS Expanded 04/07/24 10:58 04/07/24 11:21 Height 5 ft 11 in 5 ft 11 in Weight 243 lb 243 lb BMI 33.9 33.9 Intake Visit Reasons: T2DM/CONFIRMED Allergies No Known Allergies Allergy (Verified 01/27/24 17:20) Nutrition Presentation Details: Pt presents for MNT f/u for T2DM utilizing [employer] working on reducing calories to less than 2200/d +/- 500 pilar Pt reports keeping hydrated, water, diluted juice with water fruits: 2-3 /d ve-4 x/d protein : 10-12 oz/d dairy: 4+ sweets/pastries - working on reduction 14 d bg average at 162 mg/dl BS Monitoring Most Recent Diabetes Results: Microalb/Creat Ratio 11.3 ug/mg cr (<30) 01/27/24 Cholesterol 140 mg/dL (<200) 01/27/24 HDL Cholesterol 36 mg/dL (>40) L 01/27/24 Triglycerides 172 mg/dL (<150) H 01/27/24 Creatinine 1.16 mg/dL (0.5-1.4) 01/27/24 Blood Urea Nitrogen 23 mg/dL (9-16) H 01/27/24 Sodium 141 mmol/L (135-145) 01/27/24 Potassium 4.1 mmol/L (3.3-5.1) 01/27/24 Chloride 108 mmol/L (96-108) 01/27/24 Carbon Dioxide 24 mmol/L (22-29) 01/27/24 Calcium 9.7 mg/dL (8.4-10.2) 01/27/24 AST 19 U/L (5-37) 01/27/24 ALT 26 U/L (0-40) 01/27/24 Total Protein 6.7 g/dL (6.5-8.0) 01/27/24 Albumin 4.2 g/dL (3.5-5.0) 01/27/24 EFJ-Wifnqyz-Fc.Jeor Equation Height: 5 ft 11 in Weight: 243 lb Resting Metabolic Rate: 1918.37 Calculated Activity Level: Mild Activity Calories Needed to Maintain Weight: 2637.76 [facility] Medical History (Updated 01/27/24 @ 18:14 by Rosendo Chiang MD) Left inguinal hernia Incisional hernia Recurrent umbilical hernia Median nerve neuropathy Obesity (BMI 30-39.9) Tarsal tunnel syndrome of both lower extremities Gout Vitamin D deficiency Degenerative arthritis of left shoulder region Mild anemia GERD without esophagitis Pure hypercholesterolemia Benign essential hypertension Diabetes mellitus Surgical History History of left inguinal hernia repair History of umbilical hernia repair (~03/2021) Hx of colonoscopy Hx of cholecystectomy Hx of rotator cuff surgery Hx of umbilical hernia repair Hx of hernia repair Family History Father No problems noted. Mother No problems noted. Social History Household Members: Family Housing: House Are you a primary acute care certified nursing assistant to a significant other at home: No Do you presently have visiting nurse or other home services: No Alcohol intake: current Alcohol intake frequency: holidays/special occasions only Patient Tobacco Use Status: Former Tobacco user Tobacco use type: Cigarette and Cigar Cigarettes Per Day: 2 Years Smoked: 30 e-Cigarette/Vaping Use: Never Used service: No Current occupational status: unemployed Cognitive needs: No Hearing needs: Yes Vision needs: Yes Assessment & Plan Assessment & Plan (1) Diabetes mellitus: Code(s): E11.9 - Type 2 diabetes mellitus without complications Category: Medical Qualifiers: Diabetes mellitus type: type 2 Diabetes mellitus skilled nursing insulin use: without keno terminal operator use Diabetes mellitus complication status: without complication Qualified Code(s): E11.9 - Type 2 diabetes mellitus without complications Plan: Continue working towards 2300- calories per day low in fat and high in fiber WEIGHT: 122 kg (269lbs) (04/2022) , 240 lbs (109 kg) (03/2023), , 110 kg ( (04/17) est protein needs as per 1 g/kg current body weight : 110 g/d est fluid needs as per 25 ml/kg bw: 3300 ml/d Rec fiber intake : 30-38 g /day or as tolerated Rec Na intake : < 2000 mg/d Topics discussed: Physical activity : R Hydration : R Iron rich foods: R Patient Instructions: Include leafy greens, beets, beans, lentils at dinner Continue working on reducing on sugary foods (candies/pastires) Coding Level of Care Code Nutr Indiv Subseq (77396) Diagnoses Type 2 diabetes mellitus without complication, without long-term current use of insulin E11.9 Diabetes mellitus type: type 2 Diabetes mellitus keno terminal operator insulin use: without keno terminal operator use Diabetes mellitus complication status: without complication Time Spent (min) 20
[2024-04-07 10:58] VITALS: BMI 33.9
[2024-04-07 11:21] VITALS: BMI 33.9
== END 2024-04-07 11:27 | disposition home or self-care (01) ==
PROVIDERS: PCP Internal Medicine; Visit Provider Dietitian, Registered
DX: E11.9 Type 2 diabetes mellitus without complications (principal)

== ENCOUNTER → 2024-04-07 10:39 | Outpatient (BNVA) | payer OTHER, SELFPAY | PROVIDERS: PCP Internal Medicine; Visit Provider Dietitian, Registered | DX: E11.9 Type 2 diabetes mellitus without complications (principal); Z71.3 Dietary counseling and surveillance | CPT/HCPCS: 97803 ==

== ENCOUNTER 2024-08-31 08:13 | Outpatient (REF) | payer MEDICARE, SELFPAY ==
--- OUTSIDE RECORDS SUMMARY | 2024-08-31 08:20 | XMS_ITS | Data Portability ---
Author Organization [place] - [facility], Allergy Address [address] [place] [phone] Care Team Providers Care Occupancy Specialist Name Role Phone SOLOMON ACE Primary Care Provider Assessment Encounter Date Assessment Date Assessment LastModified by Organization Details LastModified Time 03/23/2024 03/23/2024 63-year-old male presents for hearing loss. Audiometric testing obtained at [facility] in September was reviewed today showing sensorineural hearing loss bilaterally, right slightly worse than the left. Results were updated today and there appears to be less asymmetry but persistent sensorineural hearing loss. He is interested in hearing aids and medical clearance was provided along with a copy of his hearing test. Hearing aid evaluation will be scheduled. We discussed the possibility of an MRI but he would prefer to observe with serial audiometric testing at this time. Recommended repeat audiogram in 6 months to 1 year. Sooner for acute changes in hearing. All questions were answered. [email or web address] Not available 03/23/2024 12:06:57 Plan of Treatment Reminders Order Date Submit Date Provider Last Modified By Organization Details Last Modified Time Details Appointments None record ed. Lab None record ed. Referral None record ed. Procedures None record ed. Surgeries None record ed. Imaging None record ed. Medication Orders None record ed. Patient TargetsNo targets recorded. Patient InstructionsNo instructions recorded. Reason for Referral None Reported. Results Created Date Observation Date Name Description Value Unit Range Abnormal Flag Note LastModifiedBy Organization Detail LastModifiedTime 03/23/20 24 10/06/2023 audio gram No observ ation record ed. [email or web address] Not Available 02/24 11:44:30 03/23/20 audio gram No observ ation record ed. BARCODE Not Available 2023 13:55:01 Result Notes None recorded. Problems Name Problem SNOMED Code Status Onset Date Resolution Date Notes Provider Name and Address Organization Details Recorded Time Sensorineural hearing loss of bilateral ears 837177226 Active 2023 Odessa carter [place] - [facility] 11:07:19 Problem Notes None recorded. Procedures Surgical History Date Name Laterality Status Provider Name and Address Organization Details Recorded Time 03/23/2024 Comp Audio with Tymps (81317 & 74530) completed Odessa Xiao [place] - [facility] 03/23/2024 11:07:11 Imaging Results Imaging Date Name Status LastModified by Organiz ation Details LastModified Time 10/06/2023 audiogram completed [email or web address] Information n ot available 03/23/2024 11:44:30 03/23/2024 audiogram completed BARCODE Information no t available 03/23/2024 13:55:01 Procedure Notes None recorded. Medical Equipment None Reported. Medications Name Sig Start Date Stop Date Status Note LastModified by Organization Details LastModified Time vitamin d3 (nnamdi) 50mcg cap TAKE 1 CAPSULE BY MOUTH ONCE DAILY active Not Available Not Available No t Available cyclobenzapr ine 10 mg tablet TAKE 1 TABLET BY MOUTH THREE TIMES DAILY NEEDED FOR MUSCLE SPASM active Not Available Not Available No t Available metformin 500 mg tablet TAKE 1 TABLET BY MOUTH TWICE DAILY active Not Available Not Available No t Available simvastatin 20 mg tablet TAKE 1 TABLET BY MOUTH AT BEDTIME active Not Available Not Available No t Available metformin 1,000 mg tablet TAKE 1 TABLET BY MOUTH TWICE DAILY FOR 90 DAYS active Not Available Not Available No t Available lisinopril 10 mg tablet TAKE 1 TABLET BY MOUTH ONCE DAILY active Not Available Not Available No t Available omeprazole 20 mg capsule,carlos yed release TAKE 1 CAPSULE BY MOUTH ONCE DAILY active Not Available Not Available No t Available gabapentin 100 mg capsule TAKE 1 CAPSULE BY MOUTH AT BEDTIME active Not Available Not Available No t Available albuterol sulfate HFA 90 mcg/actuatio n aerosol inhaler INHALE 2 PUFFS BY MOUTH EVERY 6 HOURS NEEDED FOR SHORTNESS OF BREATH FOR WHEEZING active Not Available Not Available No t Available cholecalcife rol (vitamin D3) 50 mcg (2,000 unit) capsule TAKE 1 CAPSULE BY MOUTH ONCE DAILY active Not Available Not Available No t Available Jardiance 25 mg tablet TAKE 1 TABLET BY MOUTH IN THE MORNING FUTURE REFILLS THROUGH PCP active Not Available Not Available Not Available FreeStyle Reinier 2 Sensor kit APPLY 1 SENSOR TOPICALLY TO MONITOR BLOOD GLUCOSE, AND LEAVE IN PLACE FOR 2 WEEKS AND CHANGE. active Not Available Not Available Not Available Trulicity 4.5 mg/0.5 mL subcutaneous pen injector INJECT 4.5 MG (0.5ML) SUBCUTANEOU SLY EVERY WEEK FOR 12 WEEKS active Not Available Not Available No t Available Ozempic 2 mg/dose (8 mg/3 mL) subcutaneous pen injector INJECT 2 MG SUBCUTANEOU SLY ONCE A WEEK FOR 28 DAYS active Not Available Not Available No t Available Vitals Date Recorded Body weight Body mass index (BMI) Body height Provider Name and Address Organization Details Last Updated DateTime 03/23/2024 771672.13 g 34.2 kg/m2 180.34 cm Chiqui Reyez [place] - [facility] 03/23/2024 10:26:15 Social History None recorded. Functional Status None recorded. Mental Status None recorded. Family History Nothing Reported. Medical History Condition Response Diabetes Y Hypertension Y Past Encounters Encounter ID Performer Location Encounter Start Date Encounter Closed Date Diagnosis/Indication Diagnosis SNOMED-CT Code Diagnosis ICD10 Code Diagnosis Note [id number] JOSEPH GARZA PA-C [facility] [address] [phone] 03/23/2024 10:10:14 03/23/2024 11:26:00 Sensorineural hearing loss of bilateral ears 613090769 H90.3 Audiologic al evaluation results: Right ear: {{Normal* Normal through 2 kHz Mild M oderate Mo derately-s evere Darlene re Profoun d}} {{hearing sloping to a mild slopi ng to a moderate* sloping to moderately severe slo ping to severe slo ping to profound f lat high frequency low frequency mid frequency cookie bite bruno curve}} {{with sen sorineural hearing loss with* cond uctive hearing loss with mixed hearing loss with}} {{excellen t* good fa ir poor no measurable }} word recognitio n. Left ear: {{Normal* Normal through 2 kHz Mild M oderate Mo derately-s evere Darlene re Profoun d}} {{hearing sloping to a mild slopi ng to a moderate* sloping to moderately severe slo ping to severe slo ping to profound f lat high frequency low frequency mid frequency cookie bite bruno curve}} {{with sen sorineural hearing loss with* cond uctive hearing loss with mixed hearing loss with}} {{excellen t* good fa ir poor no measurable }} word recognitio n.Asymmetr ic SNHL of 10dB or greater from 2-4kHz, worst in the right. Tympanomet ry: Right Ear:{{Type A Type As* Type Ad Type C Type C, shallow & rounded Ty pe B Type B with large volume Cou ld not maintain a hermetic seal}} Left Ear:{{Type A Type As* Type Ad Type C Type C, shallow & rounded Ty pe B Type B with large volume Cou ld not maintain a hermetic seal}} [id number] ROSEANNE BARB, AUD OLIVERA - [facility] [address] [facility] [address] [place] [phone] 03/29/2024 08:53:57 03/30/2024 07:12:30 Sensorineural hearing loss of bilateral ears [id number] H90.3 Patient came with: Irvin yeboah from [place] with his brother down stairs, children/g randchild up stairs. Demos used: [employer] Patient motivation : Unsure.We has a long, open discussion about his mild hearing loss and how much he really needs hearing aids right now. He tells me that he bought some kind of OTC aid that helps him hear better but they are too overwhelmi ng in the [facility] [place] [facility]. His mom was severely hearing impaired.H e and I are in agreement that he is not ready for hearing aids yet. He was appreciati ve of my time, the demo aids and the informatio n presented. He will return for a hearing test in 1-2 years and maybe then he will be ready for aids. Health Concerns Section Related Observation LastModified by Organization Detai ls LastModified Time None Recorded Concern Status LastModified by Organization Details LastModified Time None Recorded Advance Directives Directive None Recorded Payers Encounter Date Sequence Insurance Name Policy Number Policy Harden Covered Member ID Harden Member ID Guarantor Name 03/23/[address] [place] [address] [id number] Gustavo Rodriguez [id number] Gustavo Rodriguez 03/29/2024 1 [facility] [id number] Gustavo Rodriguez [id number] Gustavo Rodriguez Notes Date Note Type Note Provider Name and Address Organization Details Recorded Time 03/23/2024 text/html 63-year-old male presents for hearing loss. 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 He has always felt that the right ear was worse than the left. Reports no dizziness but does have bilateral tinnitus. Would like hearing aids but was recommended to have ENT evaluation first. JOSEPH GARZA PA-C [address] [place] [address], [place], [address], [place] - [facility] 03/23/2024 12:07:12
--- OUTSIDE RECORDS SUMMARY | 2024-08-31 08:20 | XMS_ITS | Clinical Summary ---
Author Organization [facility] Facility Address [address] [place] [address], [place] [address] Care Team Providers Care Drywall Sprayer Name Role Phone Unavailable Primary Care Provider Unavailabl e Social History Tobacco Use Types Packs/Day Years Used Date Smoking Tobacco: Never Assessed Sex and Gender Information Value Date Recorded Sex Assigned at Not on file Legal Sex Male 9:01 AM EST Gender Identity Not on file Sexual Orientation Not on file Plan of Treatment Health Maintenance Due Date Last Done Comments Colorectal Cancer Screening: Annual FOBT 2008 Colorectal Cancer Screening: Colonoscopy 2008 Colorectal Cancer Screening: Sigmoidoscopy 2008 Pneumococcal Vaccine: 65+ Ye ars (1 of - PCV) 2024 Influenza Vaccine (Season Ended) 2025 Hepatitis B Vaccine Aged Out No longe r eligible based on patient's age to complete this topic Pneumococcal Vaccine: Pediat rics (0 to 5 Years) and At-Risk Patients (6 to 64 Years) Aged Out No longer eligible b ased on patient's age to complete this topic Insurance [facility]
[2024-08-31 10:29] LABS: MANUAL DIFF FLAG NO
[2024-08-31 10:58] LABS: Appearance Urine Clear; Color Urine Yellow; Glucose Urine UA >=1000 mg/dL (Negative); Leukocyte Esterase Urine Negative (Negative); Nitrite Urine Negative (Negative); PH 5.5 (5.0-9.0); Specific Gravity - Urine >= 1.030 (1.005-1.025); UMIC TRIGGER UACC YES; Urine Blood Negative (Negative); Urine Ketones Negative (Negative); Urine Protein Negative (Neg-Trace)
[2024-08-31 11:05] LABS: Bacteria Urine None Seen (None Seen); Basophils Absolute Auto 0.1 X10*3/uL (0.0-0.2); Basophils Percent Auto 0.5 % (0-2); Eosinophils Absolute Auto 0.2 X10*3/uL (0.0-0.4); Eosinophils Percent Auto 2.2 % (0-4); Hematocrit 42.3 % (42.0-52.0); Hemoglobin 13.5 g/dl (14.0-18.0); Hyaline Casts Urine 0-2 /LPF (0-2); Imm Gran Abs Auto 0.02 X10*3/uL (0.00-0.03); Imm Gran Pct Auto 0.2 % (0.0-0.4); Lymphocytes Absolute Auto 3.4 X10*3/uL (1.2-4.9); Lymphocytes Percent Auto 35.6 % (20-40); Mean Corpuscular HGB Conc 31.9 g/dl (31.0-36.0); Mean Corpuscular Hemoglobin 27.1 pg (27.0-33.0); Mean Corpuscular Volume 84.9 fL (80.0-98.0); Monocytes Absolute Auto 0.9 X10*3/uL (0.1-1.2); Monocytes Percent Auto 8.9 % (2-11); Neutrophils Absolute Auto 5.1 x10*3/uL (2.0-8.3); Neutrophils Percent Auto 52.6 % (45-73); Platelet Count 237 X10*3/uL (160-400); RBC Urine 0-2 /HPF (0-2); Red Blood Count 4.98 X10*6/uL (4.60-5.80); Red Cell Distribution Width 13.9 % (11.0-16.0); Squamous Epithelial Cell Urine 0-2 /HPF (0-2); WBC Urine 0-5 /HPF (0-5); White Blood Count 9.6 X10*3/uL (4.8-10.8)
[2024-08-31 11:07] LABS: Estimated Average Glucose 166 mg/dL; Hemoglobin A1C 209.7247 umol/L; Hemoglobin A1c % 7.4 % (<6.0); Total Hemoglobin (HGBA1C) 3630.4869 umol/L
[2024-08-31 11:23] LABS: Microalbum/Creatinine Ratio Ur 9.4 ug/mg cr (<30)
[2024-08-31 11:24] LABS: Alanine Aminotransferase 21 U/L (0-40); Alkaline Phosphatase 55 U/L (39-117); Anion Gap 12 (12-20); Aspartate Amino Transferase 19 U/L (5-37); Bilirubin Total 0.5 mg/dL (0.0-1.0); Blood Urea Nitrogen 17 mg/dL (9-16); Calcium 9.4 mg/dL (8.4-10.2); Carbon Dioxide 25 mmol/L (22-29); Chloride 107 mmol/L (96-108); Cholesterol 146 mg/dL (<200); Estimated Glomerular Filt Rate > 60; Glucose Fasting 159 mg/dL (60-99); HDL Cholesterol 44 mg/dL (>40); LDL Cholesterol Calculated 79 mg/dL (<100); Potassium 4.2 mmol/L (3.3-5.1); Sodium 140 mmol/L (135-145); Total Protein 6.5 g/dL (6.5-8.0); Triglycerides 115 mg/dL (<150)
[2024-08-31 11:42] LABS: TSH reflex Free T4 0.73 uIU/mL (0.32-4.0); Vitamin D 25-OH Total 76.2 ng/mL (>30)
== END 2024-08-31 08:14 | disposition home or self-care (01) ==
LOC: HO.HMGCLDS 08:13
PROVIDERS: PCP Internal Medicine; Visit Provider Internal Medicine
DX: D64.9 Anemia, unspecified (principal); E11.9 Type 2 diabetes mellitus without complications; E78.00 Pure hypercholesterolemia, unspecified; E55.9 Vitamin D deficiency, unspecified
CPT/HCPCS: 36415; 80053; 80061; 81001; 82043; 82306; 82570; 83036; 84443; 85025

== ENCOUNTER 2024-09-16 15:46 | Outpatient (AMB) | payer OTHER, SELFPAY ==
[2024-09-16 15:59] VITALS: BP 120/66; PULSE 116; O2SAT 99; BMI 33.5
--- NOTE | 2024-09-16 15:59 | MHC.PC.OV ---
Vital Signs 09/16/24 15:59 Height 5 ft 11 in Weight 240 lb BMI 33.5 BP 120/66 Blood Pressure Location Lt brachial Position Sitting Pulse 116 H Pulse Source Pulse Oximeter Pulse Oximetry (%) 99 Oxygen Delivery Method Room Air Intake Visit Reasons: DM, hyperlipidemia, HTN Nursery Laborer Required: No Accompanied by: Self / Same As Patient Allergies No Known Allergies Allergy (Verified 09/16/24 16:38) Medication List - Last Reconciled 09/16/24 by Rosendo Chiang MD albuterol sulfate 90 mcg/actuation (Ventolin HFA) 2 puffs inhalation Q6H PRN 30 days blood sugar diagnostic (FreeStyle Lite Strips) As directed once a day blood-glucose meter (FreeStyle Lite Meter kit) As directed cholecalciferol (vitamin D3) 50 mcg PO DAILY 90 days empagliflozin (Jardiance) 25 mg PO QAM flash glucose scanning reader ([employer]Style [place] [address] [place]) As directed flash glucose sensor (FreeStyle Reinier 2 Sensor kit) As directed every 2 weeks [id number] C-Mn 500-400 mg caps PO ibuprofen 600 mg PO Q6H PRN lisinopril 10 mg PO DAILY 90 days metformin 500 mg PO BID 90 days multivitamin 1 tab PO DAILY omeprazole 20 mg PO DAILY 90 days semaglutide (Ozempic) 2 mg (0.75 mL) subcut QWEEK 4 weeks simvastatin 20 mg PO BEDTIME 90 days Tobacco use date assessed: 09/16/24 Fall risk assessment: No Falls in past year Last assessed Fall Risk: 09/16/24 Dental Screening Dental Screen Date: 09/16/24 Did you have a dental visit in the last 12 months?: Yes Did you have a dental problem in the last 6 months where you did not have access to dental care?: No Was dental information given to patient?: Patient has dentist HPI DM, hyperlipidemia, HTN HPI Details Patient comes in today for his follow-up visit States that he feels okay He denies any headaches or dizziness Denies any chest pains, no increased shortness of breath No nausea/vomiting, no abdominal pain States that he has been experiencing increasing constipation lately - thinks that this is a side effect of his Ozempic injections Needs a few of his Rx refilled He had his follow-up labs done a couple of weeks ago - to discuss his results [facility] Medical History Left inguinal hernia Incisional hernia Recurrent umbilical hernia Median nerve neuropathy Obesity (BMI 30-39.9) Tarsal tunnel syndrome of both lower extremities Gout Vitamin D deficiency Degenerative arthritis of left shoulder region Mild anemia GERD without esophagitis Pure hypercholesterolemia Benign essential hypertension Diabetes mellitus Surgical History History of left inguinal hernia repair History of umbilical hernia repair (~03/2021) Hx of colonoscopy Hx of cholecystectomy Hx of rotator cuff surgery Hx of umbilical hernia repair Hx of hernia repair Family History Father No problems noted. Mother No problems noted. Social History Household Members: Family Housing: House Are you a primary reservoir caretaker to a significant other at home: No Do you presently have visiting nurse or other home services: No Alcohol intake: current Alcohol intake frequency: holidays/special occasions only Patient Tobacco Use Status: Former Tobacco user Tobacco use type: Cigarette and Cigar Cigarettes Per Day: 2 Years Smoked: 30 e-Cigarette/Vaping Use: Never Used service: No Current occupational status: unemployed Cognitive needs: No Hearing needs: Yes Vision needs: Yes Questionnaire PHQ-9 Over the last 2 weeks, how often have you been bothered by any of the following problems? 1. Little interest or pleasure in doing things: not at all 2. Feeling down, depressed, or hopeless: not at all 3. Trouble falling or staying asleep, or sleeping too much: not at all 4. Feeling tired or having little energy: not at all 5. Poor appetite or overeating: not at all 6. Feeling bad about yourself - or that you are a failure or have let yourself or your family down: not at all 7. Trouble concentrating on things, such as reading the newspaper or watching television: not at all 8. Moving or speaking so slowly that other people could have noticed. Or the opposite - being so fidgety or restless that you have been moving around a lot more than usual: not at all 9. Thoughts that you would be better off or of hurting yourself in some way: not at all Total score: 0 Depression Screening Interpretation: Negative Depression Screening Done: Yes 84422 - PHQ-9 Billing: Yes Source: Developed by Drs. Nii Blevins, Heydi Fuentes, Ayo Escamilla and colleagues, with an educational matt from [employer]. Thrive Questionnaire Date Thrive assessed: 09/16/24 I am a: Patient What is your living situation today?: I have a steady place to live Within the past 12 months, did the food you bought not last and you didn't have the money to get more?: Sometimes True Within the past 12 months, did you worry whether your food would run out before you got money to buy more?: Sometimes True Do you have trouble paying for medicines?: No Do you have trouble getting transportation to medical appointments?: No Do you have trouble paying your heating and electricity bill?: No Do you have trouble taking care of your child, family member or friend?: No Do you have trouble with day-to-day activities such as bathing, preparing meals, shopping, managing finances, etc.?: No Are you currently unemployed and looking for a job?: No Are you interested in more education?: No Please select the resources that you would like help with: None Currently or been in a relationship where the following occur: No concerns reported THRIVE Score: 2 AUDIT C Alcohol Use Questionnaire (AUDIT-C) 1. How often do you have a drink containing alcohol?: Never 3. How often do you have six or more drinks on one occasion?: Never Total Score: 0 Score Reviewed/Action Taken: Yes THEO-7 AMB Questionnaire THEO-7 Date THEO - 7 assessed: 09/16/24 Feeling nervous, anxious, or on edge: 0 = Not at all Not being able to stop or control worryin = Not at all Worrying too much about different things: 0 = Not at all Trouble relaxin = Not at all Being so restless that it is hard to sit still: 0 = Not at all Becoming easily annoyed or irritable: 0 = Not at all Feeling afraid as if something awful might happen: 0 = Not at all Total THEO-7 score (0-4 normal; 5-9 mild; 10-14 moderate; 15-21 severe): 0 Source: Developed by Drs. Nii Blevins, Heydi Fuentes, Ayo Escamilla and colleagues, with an educational matt from [employer]. Review of Systems Const Denies chills, Denies fatigue, Denies fever(s) and Denies headache(s) ENT Denies dysphagia, Denies dizziness, Denies otalgia, Denies headache(s), Reports hearing loss, Denies neck pain, Denies odynophagia, Reports tinnitus (in both ears - persistent) and Denies sore throat Card Denies chest pain, Denies palpitations and Denies dyspnea Resp Denies chest congestion, Denies cough and Denies dyspnea GI Denies abdominal pain, Reports constipation (increased lately), Denies dysphagia, Denies heartburn, Denies diarrhea, Denies nausea, Denies odynophagia and Denies vomiting Denies difficulty urinating, Denies dysuria, Denies nocturia and Denies urinary frequency Musc Reports back pain (over the right lower back - improved from previous with physical therapy), Reports arthralgias (increased over the right knee) and Denies neck pain Skin/Breast Denies rash Neuro Denies dizziness and Denies headache(s) Endo Denies fatigue and Denies palpitations Physical exam (Primary Care) Vital Signs: Last Vital Signs Pulse 116 H 09/16/24 15:59 BP 120/66 09/16/24 15:59 Pulse Ox 99 09/16/24 15:59 Oxygen Delivery Method Room Air 09/16/24 15:59 BMI result Body Mass Index 33.5 Tobacco/Smoking Status: Tobacco use Status Tobacco use date assessed 09/16/24 09/16/24 16:03 Patient Tobacco Use Status Former Tobacco user 09/16/24 16:03 Tobacco use type Cigarette,Cigar 09/16/24 16:03 e-Cigarette/Vaping Use Never Used 09/16/24 16:03 PHQ-9: PHQ-9 Score PHQ-9: Total score 0 09/16/24 16:42 Depression Screening Interpretation: Negative Thrive Assessment: Date of Thrive Assessment Date Thrive assessed 09/16/24 09/16/24 16:03 Currently or been in a relationship where the following occur: No concerns reported Const General: no acute distress and alert HENMT Ears: TM's normal bilaterally and EAC's normal Throat: Yes posterior oropharynx normal and Yes tonsils normal (no TP congestion noted) Neck Neck: Yes no lymphadenopathy and Yes supple Thyroid: Thyroid normal Resp Auscultation: clear to auscultation bilaterally, no rales and no wheezes Cardio Rate: regular rate Rhythm: regular rhythm Heart sounds: no murmurs GI Palpation (GI): Soft to palpation and nontender Auscultation: normal bowel sounds General: Yes no CVA tenderness Back/Spine/Pelvis Back: no CVA tenderness Thoracic/Lumbar Spine: No paraspinal muscle tenderness and lumbar spinal tenderness (mild) Skin Rashes: no rashes Extrem General: Yes no clubbing, cyanosis or edema Right lower extremity: knee Details: tenderness Location: of the pre-patellar area and of the infrapatellar area; no swelling Results Reviewed Results Reviewed: Laboratory Tests 08/31/24 08/31/24 08:19 08:49 WBC 9.6 Hgb 13.5 L Hct 42.3 Plt Count 237 Sodium 140 Potassium 4.2 Creatinine 1.05 Estimated GFR > 60 Fasting Glucose 159 H Hemoglobin A1c % 7.4 H Calcium 9.4 AST 19 ALT 21 Triglycerides 115 Cholesterol 146 LDL Cholesterol, Calc 79 HDL Cholesterol 44 25-OH Vitamin D Total 76.2 TSH 0.73 Ur Specific [place] >= 1.030 H Urine Protein Negative Urine Glucose (UA) >=1000 H Urine Blood Negative Urine Nitrite Negative Ur Leukocyte Esterase Negative Microalb/Creat Ratio 9.4 Coding Level of Care Code Est Pt Level 4 (65191) Complex EM visit Add On G2211 Diagnoses Type 2 diabetes mellitus without complication, without long-term current use of insulin E11.9 Diabetes mellitus type: type 2 Diabetes mellitus predatory animal exterminator insulin use: without custodial use Diabetes mellitus complication status: without complication Pure hypercholesterolemia E78.00 Benign essential hypertension I10 GERD without esophagitis K21.9 Idiopathic gout, unspecified chronicity, unspecified site M10.00 Gout site: unspecified site Gout etiology: idiopathic Chronicity: unspecified Vitamin D deficiency E55.9 Constipation, unspecified constipation type K59.00 Constipation type: unspecified constipation type Right-sided low back pain with right-sided sciatica, unspecified chronicity M54.41 Chronicity: unspecified Tarsal tunnel syndrome of both lower extremities G57.53 Primary osteoarthritis of right knee M17.11 Osteoarthritis type: primary Obesity (BMI 30-39.9) E66.9 Additional Codes PHQ-9 - 35140 - PHQ-9 Billing: Yes ([id number]) Assessment & Plan Assessment & Plan (1) Diabetes mellitus: Code(s): E11.9 - Type 2 diabetes mellitus without complications Category: Medical Qualifiers: Diabetes mellitus type: type 2 Diabetes mellitus predatory animal exterminator insulin use: without predatory animal exterminator use Diabetes mellitus complication status: without complication Qualified Code(s): E11.9 - Type 2 diabetes mellitus without complications Plan: Patient's HgbA1c was at 7.4% on his labs done a couple weeks ago This appears to have progressed/got worse as his HgbA1c was at 6.7% back in January 2024 - goal is at least <7% Reinforced diabetic diet Continue Jardiance 25 mg QD, Ozempic 2 mg SQ once a week and Metformin 500 mg BID - patient asked to have his Metformin dose lowered at his last visit since his diabetes was under better control then We also HELD his Pioglitazone 15 mg QD last year at his request and he has not needed to go back on it and Pioglitazone was officially discontinued but he is now advised that if he cannot get his diabetes back under control, we may have to start him back on the Rx that he discontinued a few months ago Follow up with diabetic radiologic technology instructor as scheduled (2) Pure hypercholesterolemia: Code(s): E78.00 - Pure hypercholesterolemia, unspecified Category: Medical Plan: Results of his labs done a couple of weeks ago reviewed and discussed with patient Reinforced low cholesterol diet Continue Simvastatin 20 mg QD Will recheck his labs and fasting lipids in 4 months for follow-up (3) Benign essential hypertension: Code(s): I10 - Essential (primary) hypertension Category: Medical Plan: Reinforced low sodium diet - goal is systolic BP of at least 130 mm or less Continue Lisinopril 10 mg QD (4) GERD without esophagitis: Code(s): K21.9 - Gastro-esophageal reflux disease without esophagitis Category: Medical Plan: Dietary restrictions reinforced Continue Omeprazole 20 mg QD (5) Gout: Code(s): M10.9 - Gout, unspecified Category: Medical Qualifiers: Gout site: unspecified site Gout etiology: idiopathic Chronicity: unspecified Qualified Code(s): M10.00 - Idiopathic gout, unspecified site Plan: Patient reports no recent acute gout flare ups Reinforced low purine diet - serum uric acid remains normal when last checked last year (6) Vitamin D deficiency: Code(s): E55.9 - Vitamin D deficiency, unspecified Category: Medical Plan: Corrected Continue Vitamin D3 2000 units QD (7) Constipation, unspecified: Code(s): K59.00 - Constipation, unspecified Category: Medical Qualifiers: Constipation type: unspecified constipation type Qualified Code(s): K59.00 - Constipation, unspecified Plan: Patient is encouraged to increase his oral fluid and dietary fiber intake Will start patient on Miralax 17 gm QD - he is advised that this needs to be taken daily for it to be effective (8) Right-sided low back pain with right-sided sciatica: Code(s): M54.41 - Lumbago with sciatica, right side Category: Medical Qualifiers: Chronicity: unspecified Qualified Code(s): M54.41 - Lumbago with sciatica, right side Plan: X-rays of the lumbar spine done last year revealed (+) multilevel degenerative disc disease but no acute findings Right hip x-rays show (+) mild OA changes in the hip SI joint x-rays were normal He was started on a trial of Gabapentin 100 mg Q HS to help with his symptoms, especially at night but he states that it did not help He was sent for physical therapy of his lower back and hip and states that PT has helped him a lot and that he continues to perform the exercises for his lower back and hip that were taught by physical therapy on a regular basis (9) Tarsal tunnel syndrome of both lower extremities: Code(s): G57.53 - Tarsal tunnel syndrome, bilateral lower limbs Category: Medical Plan: Patient continues to report frequent pain in his feet and legs bilaterally, especially at night He was trialed on Gabapentin 100 mg Q HS, which he states did not help; recalls taking some of his sister's 300 mg Gabapentin in the past that helped somewhat but he does not want to take Gabapentin again at this time (10) Degenerative joint disease of right knee: Code(s): M17.11 - Unilateral primary osteoarthritis, right knee Category: Medical Qualifiers: Osteoarthritis type: primary Qualified Code(s): M17.11 - Unilateral primary osteoarthritis, right knee Plan: X-rays of the right knee done back in January 2024 revealed (+) mild degenerative changes in the right knee Will consider referring him to orthopedics if his knee symptoms get significantly worse (11) Obesity (BMI 30-39.9): Code(s): E66.9 - Obesity, unspecified Category: Medical Plan: Reinforced diet/exercise as tolerated /lose weight Plan Follow up in 4 months Orders: Orders Complete Blood Count Auto Diff 4 Months D64.9 - Anemia, unspecified Lipid Panel 4 Months E78.00 - Pure hypercholesterolemia, unspecified Microalbumin, Random (w Creat) 4 Months E11.9 - Type 2 diabetes mellitus without complications Hemoglobin A1c 4 Months E11.9 - Type 2 diabetes mellitus without complications TSH reflex Free T4 4 Months E78.00 - Pure hypercholesterolemia, unspecified UA CC w/rflx Micro + Cult 4 Months R30.0 - Dysuria Comprehensive Johnson. Panel Fast 4 Months E78.00 - Pure hypercholesterolemia, unspecified Vitamin D 25-OH Total 4 Months E55.9 - Vitamin D deficiency, unspecified Vitamin B12 and Folate 4 Months E53.8 - Deficiency of other specified B group vitamins Medications: New polyethylene glycol 3350 (Miralax) 17 grams PO DAILY 30 days 510 grams 5RF Changed From empagliflozin (Jardiance) Future refills with pcp. 25 mg PO QAM 90 tabs 0RF E11.9 - Type 2 diabetes mellitus without complications To empagliflozin (Jardiance) 25 mg PO QAM 90 days 90 tabs 1RF E11.9 - Type 2 diabetes mellitus without complications Refilled metformin 500 mg PO BID 90 days 180 tabs 1RF E11.65 - Type 2 diabetes mellitus with hyperglycemia albuterol sulfate 90 mcg/actuation (Ventolin HFA) 2 puffs inhalation Q6H 30 days PRN 8.5 grams 5RF shortness of breath or wheezing
--- OUTSIDE RECORDS SUMMARY | 2024-09-16 16:10 | XMS_ITS | Clinical Summary ---
Author Organization [facility] Facility Address [address] [place] [address], [place] [address] Care Team Providers Care Advance Agent Name Role Phone Unavailable Primary Care Provider [...] Colorectal Cancer Screening: Sigmoidoscopy 2008 Pneumococcal Vaccine: 50+ Ye ars (1 of - PCV) 2009 Influenza Vaccine (Season Ended) 2025 Hepatitis B Vaccine Aged Out No longe r eligible based on patient's age to complete this topic Insurance
== END 2024-09-16 16:51 | disposition home or self-care (01) ==
LOC: HO.HMCH 15:47
PROVIDERS: PCP Internal Medicine; Visit Provider Internal Medicine
DX: E11.9 Type 2 diabetes mellitus without complications (principal); E78.00 Pure hypercholesterolemia, unspecified; E66.9 Obesity, unspecified; Z68.33 Body mass index [BMI] 33.0-33.9, adult; I10 Essential (primary) hypertension; K21.9 Gastro-esophageal reflux disease without esophagitis; M10.00 Idiopathic gout, unspecified site; E55.9 Vitamin D deficiency, unspecified; K59.00 Constipation, unspecified; M54.41 Lumbago with sciatica, right side; G57.53 Tarsal tunnel syndrome, bilateral lower limbs; M17.11 Unilateral primary osteoarthritis, right knee

== ENCOUNTER → 2024-09-16 15:46 | Outpatient (BNVA) | payer OTHER, SELFPAY | PROVIDERS: PCP Internal Medicine; Visit Provider Internal Medicine | DX: E11.9 Type 2 diabetes mellitus without complications (principal); E78.00 Pure hypercholesterolemia, unspecified; I10 Essential (primary) hypertension; K21.9 Gastro-esophageal reflux disease without esophagitis; M10.00 Idiopathic gout, unspecified site; E55.9 Vitamin D deficiency, unspecified; K59.00 Constipation, unspecified; M54.41 Lumbago with sciatica, right side; G57.53 Tarsal tunnel syndrome, bilateral lower limbs; M17.11 Unilateral primary osteoarthritis, right knee; E66.9 Obesity, unspecified; Z79.84 Long term (current) use of oral hypoglycemic drugs; Z79.899 Other long term (current) drug therapy | CPT/HCPCS: 96127 ==

== ENCOUNTER 2025-01-09 08:17 | Outpatient (REF) | payer OTHER, SELFPAY ==
--- OUTSIDE RECORDS SUMMARY | 2025-01-09 08:37 | XMS_ITS ---
Author Name [facility] Organization Unknown Care Team Organization Name Specialty Phone Email Start Date End Da te [facility] Termed, PROVIDER Primary Care 02/25/202312/23
--- OUTSIDE RECORDS SUMMARY | 2025-01-09 08:37 | XMS_ITS | Clinical Summary ---
Author Organization [facility] Facility Address [address] [place] [address], [place] [address] Care Team Providers Care Knotter Name Role Phone Unavailable Primary Care Provider [...] Pneumococcal Vaccine: 50+ Ye ars (1 of 1 - PCV) 2009 Influenza Vaccine (#1) 2025 Hepatitis B Vaccine Aged Out No longe r eligible based on patient's age to complete this topic Insurance
[2025-01-09 10:00] LABS: MANUAL DIFF FLAG NO
[2025-01-09 10:00] LABS: Appearance Urine Clear; Glucose Urine UA >=1000 mg/dL (Negative); PH 6.0 (5.0-9.0); Specific Gravity - Urine >= 1.030 (1.005-1.025); UMIC TRIGGER UACC YES
[2025-01-09 10:07] LABS: Hematocrit 40.6 % (42.0-52.0); Hemoglobin 13.5 g/dl (14.0-18.0); Imm Gran Abs Auto 0.03 X10*3/uL (0.00-0.03); Imm Gran Pct Auto 0.3 % (0.0-0.4); Lymphocytes Absolute Auto 2.9 X10*3/uL (1.2-4.9); Mean Corpuscular HGB Conc 33.3 g/dl (31.0-36.0); Mean Corpuscular Hemoglobin 28.1 pg (27.0-33.0); Mean Corpuscular Volume 84.6 fL (80.0-98.0); NRBC Abs Auto 0.000 X10*3/uL (0.0-0.012); NRBC Pct Auto 0.0 /100WBC (0.0-0.2); Platelet Count 225 X10*3/uL (160-400); Red Blood Count 4.80 X10*6/uL (4.60-5.80); White Blood Count 9.5 X10*3/uL (4.8-10.8)
[2025-01-09 10:21] LABS: Hemoglobin A1C 208.1066 umol/L; Total Hemoglobin (HGBA1C) 3520.6515 umol/L
[2025-01-09 10:46] LABS: Microalbum/Creatinine Ratio Ur 7.3 ug/mg cr (<30)
[2025-01-09 10:53] LABS: Alanine Aminotransferase 22 U/L (0-40); Albumin Level 4.0 g/dL (3.5-5.0); Alkaline Phosphatase 50 U/L (39-117); Anion Gap 14 (12-20); Aspartate Amino Transferase 24 U/L (5-37); Blood Urea Nitrogen 18 mg/dL (9-16); Calcium 9.2 mg/dL (8.4-10.2); Carbon Dioxide 25 mmol/L (22-29); Chloride 107 mmol/L (96-108); Cholesterol 142 mg/dL (<200); Estimated Glomerular Filt Rate > 60; HDL Cholesterol 33 mg/dL (>40); Potassium 4.2 mmol/L (3.3-5.1); Sodium 142 mmol/L (135-145); Total Protein 6.2 g/dL (6.5-8.0); Triglycerides 168 mg/dL (<150)
[2025-01-09 11:21] LABS: Folate 11.7 ng/mL (> or = 4.0); Vitamin B12 709 pg/mL (200-900)
== END 2025-01-09 08:18 | disposition home or self-care (01) ==
LOC: HO.HMGCLDS 08:17
PROVIDERS: PCP Internal Medicine; Visit Provider Internal Medicine
DX: E53.8 Deficiency of other specified B group vitamins (principal); E78.00 Pure hypercholesterolemia, unspecified; E11.9 Type 2 diabetes mellitus without complications; E55.9 Vitamin D deficiency, unspecified; D64.9 Anemia, unspecified; R30.0 Dysuria
CPT/HCPCS: 36415; 80053; 80061; 81001; 82043; 82306; 82570; 82607; 82746; 83036; 84443; 85025

== ENCOUNTER 2025-01-16 17:07 | Outpatient (AMB) | payer OTHER, SELFPAY ==
[2025-01-16 17:32] VITALS: BP 110/62; PULSE 113; TEMP 36.3; O2SAT 95; BMI 33.7
--- NOTE | 2025-01-16 17:32 | A.OFFPC_ITS ---
Vital Signs 01/16/25 17:32 Height 5 ft 11 in Weight 242 lb BMI 33.7 BP 110/62 Blood Pressure Location Lt brachial Position Sitting Pulse 113 H Pulse Source Pulse Oximeter Temp 97.3 F Temp Source Temporal Artery Scan Pulse Oximetry (%) 95 Oxygen Delivery Method Room Air Intake Visit Reasons: annual exam Intake Note: Patient is here today for a physical. Nursing Unit Clerk Required: No Clinical Services Director: Not Required per policy Accompanied by: Self / Same As Patient Allergies No Known Allergies Allergy (Verified 01/16/25 18:10) Medication List - Last Reconciled 01/16/25 by Rosendo Chiang MD albuterol sulfate 90 mcg/actuation (Ventolin HFA) 2 puffs inhalation Q6H PRN 30 days blood sugar diagnostic (FreeStyle Lite Strips) As directed once a day blood-glucose meter (FreeStyle Lite Meter kit) As directed cholecalciferol (vitamin D3) 50 mcg PO DAILY 90 days empagliflozin (Jardiance) 25 mg PO QAM 90 days flash glucose scanning reader (ThalchemyStyle Reinier 2 [place]) As directed flash glucose sensor (FreeStyle Reinier 2 Sensor kit) As directed every 2 weeks qoetyplgcrr-rdfoxmber-oiy C-Mn 500-400 mg caps PO ibuprofen 600 mg PO Q6H PRN lisinopril 10 mg PO DAILY 90 days metformin 500 mg PO BID 90 days multivitamin 1 tab PO DAILY omeprazole 20 mg PO DAILY 90 days polyethylene glycol 3350 (Miralax) 17 grams PO DAILY 30 days semaglutide (Ozempic) 2 mg (0.75 mL) subcut QWEEK 4 weeks simvastatin 20 mg PO BEDTIME 90 days Tobacco use date assessed: 01/16/25 Fall risk assessment: No Falls in past year Last assessed Fall Risk: 01/16/25 Dental Screening Dental Screen Date: 09/16/24 HPI annual exam HPI Details Patient comes in today for his annual physical examination States that he feels okay He denies any headaches or dizziness Denies any chest pains, no shortness of breath No nausea/vomiting, no abdominal pain No change in bowel habits noted He denies any acute urinary symptoms Needs his topical Ketoconazole Rx refilled He had his follow-up labs done last week - to discuss his results He had his screening colonoscopy last done with Dr. Cerda back in July 2021 and due to the presence of tubular adenomas, he was recommended to get a repeat colonoscopy in 5 years (2026) [facility] Medical History Left inguinal hernia Incisional hernia Recurrent umbilical hernia Median nerve neuropathy Obesity (BMI 30-39.9) Tarsal tunnel syndrome of both lower extremities Gout Vitamin D deficiency Degenerative arthritis of left shoulder region Mild anemia GERD without esophagitis Pure hypercholesterolemia Benign essential hypertension Diabetes mellitus Surgical History (Updated 01/16/25 @ 18:18 by Rosendo Chiang MD) History of left inguinal hernia repair History of umbilical hernia repair (~03/2021) Hx of colonoscopy Hx of cholecystectomy Hx of rotator cuff surgery Hx of umbilical hernia repair Hx of hernia repair Family History Father No problems noted. Mother No problems noted. Social History Household Members: Family Housing: House Are you a primary out of school hours care worker to a significant other at home: No Do you presently have visiting nurse or other home services: No Alcohol intake: current Alcohol intake frequency: holidays/special occasions only Patient Tobacco Use Status: Former Tobacco user Tobacco use type: Cigarette and Cigar Cigarettes Per Day: 2 Years Smoked: 30 e-Cigarette/Vaping Use: Never Used Second Hand Smoke Exposure: Yes service: No Current occupational status: unemployed Cognitive needs: No Hearing needs: Yes Vision needs: Yes Questionnaire PHQ-9 Over the last 2 weeks, how often have you been bothered by any of the following problems? 1. Little interest or pleasure in doing things: not at all 2. Feeling down, depressed, or hopeless: not at all 3. Trouble falling or staying asleep, or sleeping too much: not at all 4. Feeling tired or having little energy: not at all 5. Poor appetite or overeating: not at all 6. Feeling bad about yourself - or that you are a failure or have let yourself or your family down: not at all 7. Trouble concentrating on things, such as reading the newspaper or watching television: not at all 8. Moving or speaking so slowly that other people could have noticed. Or the opposite - being so fidgety or restless that you have been moving around a lot more than usual: not at all 9. Thoughts that you would be better off or of hurting yourself in some way: not at all Total score: 0 Depression Screening Interpretation: Negative Depression Screening Done: Yes 28010 - PHQ-9 Billing: Yes Source: Developed by Drs. Nii Blevins, Heydi Fuentes, Ayo Escamilla and colleagues, with an educational matt from [employer]. Thrive Questionnaire Date Thrive assessed: 09/16/24 I am a: Patient What is your living situation today?: I have a steady place to live Within the past 12 months, did the food you bought not last and you didn't have the money to get more?: Sometimes True Within the past 12 months, did you worry whether your food would run out before you got money to buy more?: Sometimes True Do you have trouble paying for medicines?: No Do you have trouble getting transportation to medical appointments?: No Do you have trouble paying your heating and electricity bill?: No Do you have trouble taking care of your child, family member or friend?: No Do you have trouble with day-to-day activities such as bathing, preparing meals, shopping, managing finances, etc.?: No Are you currently unemployed and looking for a job?: No Are you interested in more education?: No Please select the resources that you would like help with: None Currently or been in a relationship where the following occur: No concerns reported THRIVE Score: 2 AUDIT C Alcohol Use Questionnaire (AUDIT-C) 2. How many drinks containing alcohol do you have on a typical day when you are drinking?: 1 or 2 3. How often do you have six or more drinks on one occasion?: Never Total Score: 0 Score Reviewed/Action Taken: Yes THEO-7 AMB Questionnaire THEO-7 Date THEO - 7 assessed: 09/16/24 Source: Developed by Drs. Nii Blevins, Heydi Fuentes, Ayo Escamilla and colleagues, with an educational matt from [employer]. Review of Systems Const Denies chills, Denies fatigue, Denies fever(s) and Denies headache(s) Eyes Denies blurry vision, Denies change in vision, Denies irritation and Denies itchy eyes ENT Denies dysphagia, Denies dizziness, Denies otalgia, Denies headache(s), Reports hearing loss, Denies neck pain, Denies odynophagia, Reports tinnitus (in both ears - persistent) and Denies sore throat Card Denies chest pain, Denies palpitations and Denies dyspnea Resp Denies chest congestion, Denies cough, Denies dyspnea and Denies wheezing GI Denies abdominal pain, Denies constipation, Denies dysphagia, Denies heartburn, Denies diarrhea, Denies nausea, Denies odynophagia and Denies vomiting Denies difficulty urinating, Denies dysuria, Denies nocturia and Denies urinary frequency Musc Reports back pain (over the right lower back - improved from previous with physical therapy), Reports arthralgias (increased over the right knee) and Denies neck pain Skin/Breast Denies rash Neuro Denies dizziness and Denies headache(s) Endo Denies fatigue and Denies palpitations Aller/Immun Denies itchy eyes and Denies wheezing Physical exam (Primary Care) Vital Signs: Last Vital Signs Temp 97.3 F 01/16/25 17:32 Pulse 113 H 01/16/25 17:32 BP 110/62 01/16/25 17:32 Pulse Ox 95 01/16/25 17:32 Oxygen Delivery Method Room Air 01/16/25 17:32 BMI result Body Mass Index 33.7 Tobacco/Smoking Status: Tobacco use Status Tobacco use date assessed 01/16/25 01/16/25 17:36 Patient Tobacco Use Status Former Tobacco user 01/16/25 17:36 Tobacco use type Cigarette,Cigar 01/16/25 17:36 e-Cigarette/Vaping Use Never Used 01/16/25 17:36 Depression Screening Interpretation: Negative Thrive Assessment: Date of Thrive Assessment Date Thrive assessed 09/16/24 01/16/25 17:36 Currently or been in a relationship where the following occur: No concerns reported Const General: no acute distress and alert Orientation/consciousness: patient oriented x3 HENMT Head: Yes normocephalic and Yes atraumatic Ears: TM's normal bilaterally and EAC's normal General nose exam: No nasal discharge present Face and sinus: Yes normal facial exam and Yes sinuses nontender Teeth and gingiva: dentition normal Throat: Yes posterior oropharynx normal and Yes tonsils normal (no TP congestion noted) Eyes Eyelids: Yes eyelids normal Conjunctivae: conjunctivae normal Pupils: Equal, round and reactive pupils present EOM: EOMs intact bilaterally Neck Neck: Yes no lymphadenopathy and Yes supple Thyroid: Thyroid normal Resp Auscultation: clear to auscultation bilaterally, no rales and no wheezes Cardio Rate: regular rate Rhythm: regular rhythm Heart sounds: no murmurs GI Palpation (GI): Soft to palpation and nontender Auscultation: normal bowel sounds General: Yes no CVA tenderness Back/Spine/Pelvis Back: no CVA tenderness Thoracic/Lumbar Spine: No paraspinal muscle tenderness and lumbar spinal tenderness (mild) Skin Lesions: no lesions Rashes: no rashes Neuro General: patient oriented x3, moves all extremities, no focal motor deficits and CN's II-XI intact bilaterally Cranial nerves: Yes Equal, round and reactive pupils present Cognition (Neuro): normal cognition Gait exam (Neuro): Normal gait present Extrem General: Yes no clubbing, cyanosis or edema Right lower extremity: knee Details: tenderness Location: of the pre-patellar area and of the infrapatellar area; no swelling Results Reviewed Results Reviewed: Laboratory Tests 01/09/25 01/09/25 08:26 08:35 WBC 9.5 Hgb 13.5 L Hct 40.6 L Plt Count 225 Sodium 142 Potassium 4.2 Creatinine 1.10 Estimated GFR > 60 Fasting Glucose 162 H Hemoglobin A1c % 7.6 H Calcium 9.2 AST 24 ALT 22 Triglycerides 168 H Cholesterol 142 LDL Cholesterol, Calc 76 HDL Cholesterol 33 L Vitamin B12 709 25-OH Vitamin D Total 67.9 TSH 0.60 Ur Specific Caret >= 1.030 H Urine Protein Negative Urine Glucose (UA) >=1000 H Urine Blood Negative Urine Nitrite Negative Ur Leukocyte Esterase Negative Microalb/Creat Ratio 7.3 Coding Level of Care Code Est Pt Prev Care >65y(60786) Diagnoses Annual physical exam Z00.00 Type 2 diabetes mellitus without complication, without long-term current use of insulin E11.9 Diabetes mellitus complication status: without complication Diabetes mellitus ferry terminal supervisor insulin use: without snf use Diabetes mellitus type: type 2 Pure hypercholesterolemia E78.00 Benign essential hypertension I10 GERD without esophagitis K21.9 Idiopathic gout, unspecified chronicity, unspecified site M10.00 Chronicity: unspecified Gout etiology: idiopathic Gout site: unspecified site Vitamin D deficiency E55.9 Constipation, unspecified constipation type K59.00 Constipation type: unspecified constipation type Right-sided low back pain with right-sided sciatica, unspecified chronicity M54.41 Chronicity: unspecified Tarsal tunnel syndrome of both lower extremities G57.53 Primary osteoarthritis of right knee M17.11 Osteoarthritis type: primary Obesity (BMI 30-39.9) E66.9 Additional Codes PHQ-9 - 50120 - PHQ-9 Billing: Yes ([id number]) Assessment & Plan Assessment & Plan (1) Annual physical exam: Code(s): Z00.00 - Encounter for general adult medical examination without abnormal findings Category: Medical Plan: Results of his labs done last week reviewed and discussed with patient He had his screening colonoscopy last done with Dr. Cerda in July 2021 and will be due for repeat colonoscopy in 5 years (2026) (2) Diabetes mellitus: Code(s): E11.9 - Type 2 diabetes mellitus without complications Category: Medical Qualifiers: Diabetes mellitus complication status: without complication Diabetes mellitus snf insulin use: without ferry terminal supervisor use Diabetes mellitus type: type 2 Qualified Code(s): E11.9 - Type 2 diabetes mellitus without complications Plan: Patient's HgbA1c was at 7.6% on his labs done last week - he was previously at 7.4% a few months ago and was at 6.7% back in January 2024 - goal is at least <7% Reinforced diabetic diet Continue Jardiance 25 mg QD, Ozempic 2 mg SQ once a week and Metformin 500 mg BID - patient asked to have his Metformin dose lowered at his previous visit since his diabetes was under better control then We also HELD his Pioglitazone 15 mg QD last year at his request and he is now being advised that if he cannot get his diabetes back under control, we may have to start him back on Pioglitazone Follow up with diabetic website programmer as scheduled (3) Pure hypercholesterolemia: Code(s): E78.00 - Pure hypercholesterolemia, unspecified Category: Medical Plan: Reinforced low cholesterol diet Continue Simvastatin 20 mg QD Will recheck his labs and fasting lipids in 4 months for follow-up (4) Benign essential hypertension: Code(s): I10 - Essential (primary) hypertension Category: Medical Plan: Reinforced low sodium diet - goal is systolic BP of at least 130 mm or less Continue Lisinopril 10 mg QD (5) GERD without esophagitis: Code(s): K21.9 - Gastro-esophageal reflux disease without esophagitis Category: Medical Plan: Dietary restrictions reinforced Continue Omeprazole 20 mg QD (6) Gout: Code(s): M10.9 - Gout, unspecified Category: Medical Qualifiers: Chronicity: unspecified Gout etiology: idiopathic Gout site: unspecified site Qualified Code(s): M10.00 - Idiopathic gout, unspecified site Plan: Patient reports no recent acute gout flare ups Reinforced low purine diet - serum uric acid remains normal when last checked last year We will recheck his serum uric acid level in a few months for follow-up (7) Vitamin D deficiency: Code(s): E55.9 - Vitamin D deficiency, unspecified Category: Medical Plan: Continue Vitamin D3 2000 units QD (8) Constipation, unspecified: Code(s): K59.00 - Constipation, unspecified Category: Medical Qualifiers: Constipation type: unspecified constipation type Qualified Code(s): K59.00 - Constipation, unspecified Plan: Patient is again encouraged to increase his oral fluid and dietary fiber intake Continue Miralax 17 gm QD (9) Right-sided low back pain with right-sided sciatica: Code(s): M54.41 - Lumbago with sciatica, right side Category: Medical Qualifiers: Chronicity: unspecified Qualified Code(s): M54.41 - Lumbago with sciatica, right side Plan: X-rays of the lumbar spine done a couple of years ago revealed (+) multilevel degenerative disc disease but no acute findings Right hip x-rays show (+) mild OA changes in the hip SI joint x-rays were normal He was started on a trial of Gabapentin 100 mg Q HS to help with his symptoms, especially at night but he states that it did not help He was sent for physical therapy of his lower back and hip and states that PT has helped him a lot and that he continues to perform the exercises for his lower back and hip that were taught by physical therapy on a regular basis (10) Tarsal tunnel syndrome of both lower extremities: Code(s): G57.53 - Tarsal tunnel syndrome, bilateral lower limbs Category: Medical Plan: Patient continues to report frequent pain in his feet and legs bilaterally, especially at night He was trialed on Gabapentin 100 mg Q HS, which he states did not help; recalls taking some of his sister's 300 mg Gabapentin in the past that helped somewhat but he does not want to take Gabapentin again at this time (11) Degenerative joint disease of right knee: Code(s): M17.11 - Unilateral primary osteoarthritis, right knee Category: Medical Qualifiers: Osteoarthritis type: primary Qualified Code(s): M17.11 - Unilateral primary osteoarthritis, right knee Plan: X-rays of the right knee done back in January 2024 revealed (+) mild degenerative changes in the right knee Will consider referring him to orthopedics if his knee symptoms get significantly worse For now, we will start him on a trial of meloxicam 15 mg QD with food PRN as patient states that he has been taking a lot of Tylenol lately just to help relieve his joint pains (12) Obesity (BMI 30-39.9): Code(s): E66.9 - Obesity, unspecified Category: Medical Plan: Reinforced diet/exercise as tolerated /lose weight Plan Follow up in 4 months Orders: Orders Complete Blood Count Auto Diff 4 Months D64.9 - Anemia, unspecified Hemoglobin A1c 4 Months E11.9 - Type 2 diabetes mellitus without complications Microalbumin, Random (w Creat) 4 Months E11.9 - Type 2 diabetes mellitus without complications TSH reflex Free T4 4 Months E78.00 - Pure hypercholesterolemia, unspecified UA CC w/rflx Micro + Cult 4 Months R30.0 - Dysuria Vitamin B12 and Folate 4 Months E53.8 - Deficiency of other specified B group vitamins Comprehensive Simms. Panel Fast 4 Months E78.00 - Pure hypercholesterolemia, unspecified Lipid Panel 4 Months E78.00 - Pure hypercholesterolemia, unspecified Vitamin D 25-OH Total 4 Months E55.9 - Vitamin D deficiency, unspecified Medications: New meloxicam Take with food 15 mg PO DAILY PRN 30 tabs 3RF joint pains 30 days Refilled ketoconazole 2% 1 appl topical BID PRN 60 grams 1RF rash
== END 2025-01-16 18:33 | disposition home or self-care (01) ==
LOC: HO.HMCH 17:08
PROVIDERS: PCP Internal Medicine; Visit Provider Internal Medicine
DX: Z00.00 Encounter for general adult medical examination without abnormal findings (principal); E11.9 Type 2 diabetes mellitus without complications; E66.9 Obesity, unspecified; Z68.33 Body mass index [BMI] 33.0-33.9, adult; E78.00 Pure hypercholesterolemia, unspecified; I10 Essential (primary) hypertension; K21.9 Gastro-esophageal reflux disease without esophagitis; E55.9 Vitamin D deficiency, unspecified; K59.00 Constipation, unspecified; M54.41 Lumbago with sciatica, right side; G57.53 Tarsal tunnel syndrome, bilateral lower limbs; M17.11 Unilateral primary osteoarthritis, right knee

== ENCOUNTER → 2025-01-16 17:07 | Outpatient (BNVA) | payer OTHER, SELFPAY | PROVIDERS: PCP Internal Medicine; Visit Provider Internal Medicine | DX: Z00.00 Encounter for general adult medical examination without abnormal findings (principal); E11.9 Type 2 diabetes mellitus without complications; E78.00 Pure hypercholesterolemia, unspecified; I10 Essential (primary) hypertension; K21.9 Gastro-esophageal reflux disease without esophagitis; M10.00 Idiopathic gout, unspecified site; E55.9 Vitamin D deficiency, unspecified; K59.00 Constipation, unspecified; M54.41 Lumbago with sciatica, right side; G57.53 Tarsal tunnel syndrome, bilateral lower limbs; M17.11 Unilateral primary osteoarthritis, right knee; E66.9 Obesity, unspecified; Z68.33 Body mass index [BMI] 33.0-33.9, adult | CPT/HCPCS: 96127 ==

== ENCOUNTER 2025-05-10 08:25 | Outpatient (REF) | payer OTHER, SELFPAY ==
--- OUTSIDE RECORDS SUMMARY | 2025-05-10 08:36 | XMS_ITS | Data Portability ---
Author Organization [place] - [facility], Allergy Address [address] [place] [id number] Care Team Providers Care Compound Filler Name Role Phone SOLOMON ACE Primary Care Provider [phone] Assessment Encounter Date Assessment Date Assessment LastModified by Organization Details LastModified Time 03/23/2024 03/23/2024 63-year-old male presents for hearing loss. Audiometric testing obtained at [facility] in September was reviewed today showing [...] changes in hearing. All questions were answered. [email or web address] Not available 03/23/2024 12:06:57 Plan of Treatment [...] audio gram No observ ation record ed. Not Available 02/24 11:44:30 03/23/20 audio gram No observ ation record ed. BARCODE Not Available 2023 13:55:01 Result Notes None recorded. Problems Name Problem SNOMED Code Status Onset Date Resolution Date Notes Provider Name and Address Organization Details Recorded Time Sensorineural hearing loss of bilateral ears [id number] Active 2023 Odessa carter [place] - [facility] 11:07:19 Problem Notes None recorded. Procedures Surgical History Date Name Laterality Status Provider Name and Address Organization Details Recorded Time 03/23/2024 Comp Audio with Tymps - 05887 & 43513 completed Odessa Xiao [place] - [facility] 03/23/2024 11:07:11 Imaging Results None recorded. Procedure Notes None recorded. Medical Equipment None [...] active Not Available Not Available Not Available Crystal 4.5 mg/0.5 mL subcutaneous pen injector INJECT [...] Address Organization Details Last Updated DateTime 03/23/2024 583297.13 g 34.2 kg/m2 180.34 cm Chiqui Reyez [place] - [facility] 03/23/2024 10:26:15 Social History None recorded. Functional Status None recorded. Mental Status None recorded. Family History Nothing Reported. Medical History Condition Response Diabetes Y Hypertension Y Past Encounters Encounter ID Performer Location Encounter Start Date Encounter Closed Date Diagnosis/Indication Diagnosis SNOMED-CT Code Diagnosis ICD10 Code Diagnosis IMO Codes Diagnosis Note [id number] JOSEPH GARZA PA-C [facility] [address] [phone] 03/23/2024 10:10:14 03/23/2024 11:26:00 Sensorineural hearing loss of bilateral ears [id number] H90.3 Audiologic al evaluation results: Right ear: Normal sloping to a moderate sensorineu ral hearing loss with excellent word recognitio n. Left ear: Normal sloping to a moderate sensorineu ral hearing loss with excellent word recognitio n.Asymmetr ic SNHL of 10dB or greater from 2-4kHz, worst in the right. Tympanomet ry: Right Ear:[place] [id number] KEIKO VILLALTA [facility]IVER[place] - [place] [address] [place] [address],[place] [facility] [address] [place] [phone] 03/29/2024 08:53:57 03/30/2024 07:12:30 Sensorineural hearing loss of bilateral ears [id number] H90.3 Patient came with: Irvin yeboah from [...] Recorded Advance Directives Directive None Recorded Payers Insurance Date Sequence Insurance Name Policy Number Policy Harden Covered Member ID Harden Member ID Guarantor Name 03/26/[address] [place], [place] [id number] Gustavo Jennifer [id number] Gustavo Rodriguez Notes Date Note Type Note Provider Name and Address Organization Details Recorded Time 03/23/2024 text/html ROS as noted in the HPI 63-year-old male presents for hearing loss. 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 He has always felt that the right ear was worse than the left. Reports no dizziness but does have bilateral tinnitus. Would like hearing aids but was recommended to have ENT evaluation first. JOSEPH GARZA PA-C [address] [place] [address], [place], [phone], [facility] - [facility] 03/23/2024 12:07:12
[2025-05-10 10:32] LABS: Appearance Urine Cloudy; Glucose Urine UA >=1000 mg/dL (Negative); PH 5.5 (5.0-9.0); Specific Gravity - Urine 1.025 (1.005-1.025); UMIC TRIGGER UACC YES
[2025-05-10 10:38] LABS: MANUAL DIFF FLAG NO
[2025-05-10 10:57] LABS: Hematocrit 43.4 % (42.0-52.0); Hemoglobin 14.1 g/dl (14.0-18.0); Imm Gran Abs Auto 0.03 X10*3/uL (0.00-0.03); Imm Gran Pct Auto 0.3 % (0.0-0.4); Lymphocytes Absolute Auto 3.3 X10*3/uL (1.2-4.9); Mean Corpuscular HGB Conc 32.5 g/dl (31.0-36.0); Mean Corpuscular Hemoglobin 27.8 pg (27.0-33.0); Mean Corpuscular Volume 85.6 fL (80.0-98.0); NRBC Abs Auto 0.000 X10*3/uL (0.0-0.012); NRBC Pct Auto 0.0 /100WBC (0.0-0.2); Platelet Count 245 X10*3/uL (160-400); Red Blood Count 5.07 X10*6/uL (4.60-5.80); White Blood Count 9.4 X10*3/uL (4.8-10.8)
[2025-05-10 11:31] LABS: Alanine Aminotransferase 32 U/L (0-40); Albumin Level 4.4 g/dL (3.5-5.0); Alkaline Phosphatase 50 U/L (39-117); Anion Gap 12 (12-20); Aspartate Amino Transferase 31 U/L (5-37); Blood Urea Nitrogen 22 mg/dL (9-16); Calcium 9.7 mg/dL (8.4-10.2); Carbon Dioxide 26 mmol/L (22-29); Chloride 105 mmol/L (96-108); Cholesterol 150 mg/dL (<200); Estimated Glomerular Filt Rate > 60; HDL Cholesterol 39 mg/dL (>40); Potassium 4.2 mmol/L (3.3-5.1); Sodium 139 mmol/L (135-145); Total Protein 6.5 g/dL (6.5-8.0); Triglycerides 143 mg/dL (<150)
[2025-05-10 11:41] LABS: Folate 12.5 ng/mL (> or = 4.0); Vitamin B12 619 pg/mL (200-900)
== END 2025-05-10 08:26 | disposition home or self-care (01) ==
LOC: HO.HMGCLDS 08:25
PROVIDERS: PCP Internal Medicine; Visit Provider Internal Medicine
DX: E11.9 Type 2 diabetes mellitus without complications (principal); E55.9 Vitamin D deficiency, unspecified; E53.8 Deficiency of other specified B group vitamins; R30.0 Dysuria; E78.00 Pure hypercholesterolemia, unspecified; D64.9 Anemia, unspecified
CPT/HCPCS: 36415; 80053; 80061; 81001; 82043; 82306; 82570; 82607; 82746; 83036; 84443; 85025

== ENCOUNTER 2025-05-16 12:51 | Outpatient (AMB) | payer OTHER, SELFPAY ==
--- NOTE | 2025-05-16 13:06 | A.OFFPC_ITS ---
Vital Signs 05/16/25 13:08 Height 5 ft 11 in Weight 243 lb BMI 33.9 BP 124/66 Blood Pressure Location Lt brachial Position Sitting Pulse 84 Pulse Source Pulse Oximeter Temp 97.1 F Temp Source Temporal Artery Scan Pulse Oximetry (%) 96 Oxygen Delivery Method Room Air Intake Visit Reasons: DM, hyperlipidemia, HTN Intake Note: Patient is here to follow up on DM, HLD, HTN. Able Seaman Required: No Children'S Literature Professor: Not Required per policy Accompanied by: Self / Same As Patient Allergies No Known Allergies Allergy (Verified 05/16/25 13:43) Medication List - Last Reconciled 05/16/25 by Rosendo Chiang MD albuterol sulfate 90 mcg/actuation (Ventolin HFA) 2 puffs inhalation Q6H PRN 30 days blood sugar diagnostic (FreeStyle Lite Strips) 1 strip miscellaneous DAILY blood-glucose meter (FreeStyle Lite Meter kit) As directed cholecalciferol (vitamin D3) 50 mcg PO DAILY 90 days empagliflozin (Jardiance) 25 mg PO QAM 90 days flash glucose scanning reader (FreeStyle Reinier 2 Jarales) As directed flash glucose sensor (FreeStyle Reinier 2 Sensor kit) As directed every 2 weeks [id number] C-Mn 500-400 mg caps PO ibuprofen 600 mg PO Q6H PRN ketoconazole 2% 1 appl topical BID PRN lisinopril 10 mg PO DAILY 90 days meloxicam 15 mg PO DAILY PRN 30 days metformin 500 mg PO BID 90 days multivitamin 1 tab PO DAILY omeprazole 20 mg PO DAILY 90 days polyethylene glycol 3350 (Miralax) 17 grams PO DAILY 30 days semaglutide (Ozempic) 2 mg (0.75 mL) subcut QWEEK 4 weeks simvastatin 20 mg PO BEDTIME 90 days Tobacco use date assessed: 05/16/25 Fall risk assessment: No Falls in past year Last assessed Fall Risk: 05/16/25 Dental Screening Dental Screen Date: 09/16/24 HPI DM, hyperlipidemia, HTN HPI Details - The patient is a 65 year old male who comes in today for his follow up visit - He is currently presenting with right elbow pain, which he states has been present for several months but has worsened over the last couple of months. - He describes the pain as a nagging, du ll ache located under the elbow and on the outer aspect, which radiates down to the outside of his wrist. 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 - The patient reports his knee and hand pain have improved, and swelling in his hands has decreased with medication. - He previously received gel shots in hi s knees, which provided delayed relief. - Regarding his diabetes, his last HbA1c was 7.6%. - He actively monitors his blood glucose , noting a 20-point discrepancy between his old, test strips and new ones. - He has experienced symptomatic hypogly cemia with blood glucose levels in the low 80s. - He occasionally misses his nightly met formin and simvastatin doses. - He has successfully lost weight, going from nearly 260 pounds down to 243 pounds. - He has been drinking 70-100 ounces of water daily for the past month and a half, which he feels has improved his overall flexibility and reduced aches. - He denies any headaches or dizziness - Denies any chest pain, no increased SO B - No nausea/vomiting, no abdominal pain - No change in bowel habits noted - He had his follow up labs done last we ek - to discuss his results [facility] Medical History Left inguinal hernia Incisional hernia Recurrent umbilical hernia Median nerve neuropathy Obesity (BMI 30-39.9) Tarsal tunnel syndrome of both lower extremities Gout Vitamin D deficiency Degenerative arthritis of left shoulder region Mild anemia GERD without esophagitis Pure hypercholesterolemia Benign essential hypertension Diabetes mellitus Surgical History History of left inguinal hernia repair History of umbilical hernia repair (~03/2021) Hx of colonoscopy Hx of cholecystectomy Hx of rotator cuff surgery Hx of umbilical hernia repair Hx of hernia repair Family History Father No problems noted. Mother No problems noted. Social History Household Members: Family Housing: House Are you a primary disabilities caregiver to a significant other at home: No Do you presently have visiting nurse or other home services: No Alcohol intake: current Alcohol intake frequency: holidays/special occasions only Patient Tobacco Use Status: Former Tobacco user Tobacco use type: Cigarette and Cigar Cigarettes Per Day: 2 Years Smoked: 30 e-Cigarette/Vaping Use: Never Used Second Hand Smoke Exposure: Yes service: No Current occupational status: unemployed Cognitive needs: No Hearing needs: Yes Vision needs: Yes Questionnaire PHQ-9 Over the last 2 weeks, how often have you been bothered by any of the following problems? 1. Little interest or pleasure in doing things: not at all 2. Feeling down, depressed, or hopeless: not at all 3. Trouble falling or staying asleep, or sleeping too much: not at all 4. Feeling tired or having little energy: not at all 5. Poor appetite or overeating: not at all 6. Feeling bad about yourself - or that you are a failure or have let yourself or your family down: not at all 7. Trouble concentrating on things, such as reading the newspaper or watching television: not at all 8. Moving or speaking so slowly that other people could have noticed. Or the opposite - being so fidgety or restless that you have been moving around a lot more than usual: not at all 9. Thoughts that you would be better off or of hurting yourself in some way: not at all Total score: 0 Depression Screening Interpretation: Negative Depression Screening Done: Yes 66151 - PHQ-9 Billing: Yes Source: Developed by Drs. Nii Blevins, Heydi Fuentes, Ayo Escamilla and colleagues, with an educational matt from [employer]. Thrive Questionnaire Date Thrive assessed: 09/16/24 What is your living situation today?: I have a steady place to live Within the past 12 months, did the food you bought not last and you didn't have the money to get more?: Sometimes True Within the past 12 months, did you worry whether your food would run out before you got money to buy more?: Sometimes True Do you have trouble paying for medicines?: No Do you have trouble getting transportation to medical appointments?: No Do you have trouble paying your heating and electricity bill?: No Do you have trouble taking care of your child, family member or friend?: No Do you have trouble with day-to-day activities such as bathing, preparing meals, shopping, managing finances, etc.?: No Are you currently unemployed and looking for a job?: No Are you interested in more education?: No Currently or been in a relationship where the following occur: No concerns reported THRIVE Score: 2 AUDIT C Alcohol Use Questionnaire (AUDIT-C) 2. How many drinks containing alcohol do you have on a typical day when you are drinking?: 1 or 2 3. How often do you have six or more drinks on one occasion?: Never Total Score: 0 Score Reviewed/Action Taken: Yes THEO-7 AMB Questionnaire THEO-7 Date THEO - 7 assessed: 09/16/24 Source: Developed by Drs. Nii Blevins, Heydi Fuentes, Ayo Escamilla and colleagues, with an educational matt from [employer]. Review of Systems Const Denies chills, Denies fatigue, Denies fever(s) and Denies headache(s) ENT Denies dysphagia, Denies dizziness, Denies otalgia, Denies headache(s), Reports hearing loss, Denies neck pain, Denies odynophagia, Reports tinnitus (in both ears - persistent) and Denies sore throat Card Denies chest pain, Denies palpitations and Denies dyspnea Resp Denies chest congestion, Denies cough, Denies dyspnea and Denies wheezing GI Denies abdominal pain, Denies constipation, Denies dysphagia, Denies heartburn, Denies diarrhea, Denies nausea, Denies odynophagia and Denies vomiting Denies difficulty urinating, Denies dysuria, Denies nocturia and Denies urinary frequency Musc Reports back pain (over the right lower back - improved from previous with physical therapy), Reports arthralgias (increased over the right elbow - see HPI) and Denies neck pain Skin/Breast Denies rash Neuro Denies dizziness and Denies headache(s) Endo Denies fatigue and Denies palpitations Aller/Immun Denies wheezing Physical exam (Primary Care) Vital Signs: Last Vital Signs Temp 97.1 F 05/16/25 13:08 Pulse 84 05/16/25 13:08 BP 124/66 05/16/25 13:08 Pulse Ox 96 05/16/25 13:08 Oxygen Delivery Method Room Air 05/16/25 13:08 BMI result Body Mass Index 33.9 Tobacco/Smoking Status: Tobacco use Status Tobacco use date assessed 05/16/25 05/16/25 13:14 Patient Tobacco Use Status Former Tobacco user 05/16/25 13:14 Tobacco use type Cigarette,Cigar 05/16/25 13:14 e-Cigarette/Vaping Use Never Used 05/16/25 13:14 PHQ-9: PHQ-9 Score PHQ-9: Total score 0 05/16/25 13:47 Depression Screening Interpretation: Negative Thrive Assessment: Date of Thrive Assessment Date Thrive assessed 09/16/24 05/16/25 13:14 Currently or been in a relationship where the following occur: No concerns reported Const General: no acute distress and alert HENMT Ears: TM's normal bilaterally and EAC's normal Throat: Yes posterior oropharynx normal and Yes tonsils normal (no TP congestion noted) Neck Neck: Yes supple and No lymphadenopathy Thyroid: Thyroid normal Resp Auscultation: clear to auscultation bilaterally, no rales and no wheezes Cardio Rate: regular rate Rhythm: regular rhythm Heart sounds: no murmurs GI Palpation (GI): Soft to palpation and nontender Auscultation: normal bowel sounds General: Yes no CVA tenderness Back/Spine/Pelvis Back: no CVA tenderness Thoracic/Lumbar Spine: lumbar spinal tenderness (mild) Skin Rashes: no rashes Extrem General: Yes no clubbing, cyanosis or edema Right upper extremity: elbow/forearm Details: tenderness Location: of the olecranon, of the lateral epicondyle and of the medial epicondyle; no swelling Results Reviewed Results Reviewed: Laboratory Tests 05/10/25 08:27 WBC 9.4 Hgb 14.1 Hct 43.4 Plt Count 245 Sodium 139 Potassium 4.2 Creatinine 1.17 Estimated GFR > 60 Fasting Glucose 145 H Hemoglobin A1c % 7.6 H Calcium 9.7 AST 31 ALT 32 Triglycerides 143 Cholesterol 150 LDL Cholesterol, Calc 83 HDL Cholesterol 39 L Vitamin B12 619 25-OH Vitamin D Total 68.2 TSH 0.57 Ur Specific [place] 1.025 Urine Protein Negative Urine Glucose (UA) >=1000 H Urine Blood Negative Urine Nitrite Negative Ur Leukocyte Esterase Negative Coding Level of Care Code Est Pt Level 4 (70486) Add On Problem Visit Only Diagnoses Type 2 diabetes mellitus without complication, without long-term current use of insulin E11.9 Diabetes mellitus complication status: without complication Diabetes mellitus fci insulin use: without intermediate designer use Diabetes mellitus type: type 2 Pure hypercholesterolemia E78.00 Benign essential hypertension I10 GERD without esophagitis K21.9 Idiopathic gout, unspecified chronicity, unspecified site M10.00 Chronicity: unspecified Gout etiology: idiopathic Gout site: unspecified site Vitamin D deficiency E55.9 Constipation, unspecified constipation type K59.00 Constipation type: unspecified constipation type Right-sided low back pain with right-sided sciatica, unspecified chronicity M54.41 Chronicity: unspecified Tarsal tunnel syndrome of both lower extremities G57.53 Primary osteoarthritis of right knee M17.11 Osteoarthritis type: primary Right elbow pain M25.521 Obesity (BMI 30-39.9) E66.9 Additional Codes PHQ-9 - 24288 - PHQ-9 Billing: Yes ([id number]) Assessment & Plan Assessment & Plan (1) Diabetes mellitus: Code(s): E11.9 - Type 2 diabetes mellitus without complications Category: Medical Qualifiers: Diabetes mellitus complication status: without complication Diabetes mellitus intermediate designer insulin use: without intermediate designer use Diabetes mellitus type: type 2 Qualified Code(s): E11.9 - Type 2 diabetes mellitus without complications Plan: Patient's HgbA1c was at 7.6% on his labs done last week - he was previously at 7.4% a few months ago and was at 6.7% back in January 2024 - goal is at least <7% Reinforced diabetic diet Continue Jardiance 25 mg QD, Ozempic 2 mg SQ once a week and Metformin 500 mg BID - patient asked to have his Metformin dose lowered at his previous visit since his diabetes was under better control then We also HELD his Pioglitazone 15 mg QD last year at his request and he is advised that if he cannot get his diabetes back under control, we may have to start him back on Pioglitazone Follow up with diabetic financial aid officer as scheduled (2) Pure hypercholesterolemia: Code(s): E78.00 - Pure hypercholesterolemia, unspecified Category: Medical Plan: Results of his labs done last week reviewed and discussed with patient Reinforced low cholesterol diet Continue Simvastatin 20 mg QD Will recheck his labs and fasting lipids in 4 months for follow-up (3) Benign essential hypertension: Code(s): I10 - Essential (primary) hypertension Category: Medical Plan: Reinforced low sodium diet - goal is systolic BP of at least 130 mm or less Continue Lisinopril 10 mg QD (4) GERD without esophagitis: Code(s): K21.9 - Gastro-esophageal reflux disease without esophagitis Category: Medical Plan: Dietary restrictions reinforced Continue Omeprazole 20 mg QD (5) Gout: Code(s): M10.9 - Gout, unspecified Category: Medical Qualifiers: Chronicity: unspecified Gout etiology: idiopathic Gout site: unspec ified site Qualified Code(s): M10.00 - Idiopathic gout, unspecified site Plan: Patient reports no recent acute gout flare ups Reinforced low purine diet - serum uric acid remains normal when last checked last year We will recheck his serum uric acid level in a few months for follow-up (6) Vitamin D deficiency: Code(s): E55.9 - Vitamin D deficiency, unspecified Category: Medical Plan: Continue Vitamin D3 2000 units QD (7) Constipation, unspecified: Code(s): K59.00 - Constipation, unspecified Category: Medical Qualifiers: Constipation type: unspecified constipation type Qualified Code(s): K59.00 - Constipation, unspecified Plan: Patient is again encouraged to increase his oral fluid and dietary fiber intake Continue Miralax 17 gm QD (8) Right-sided low back pain with right-sided sciatica: Code(s): M54.41 - Lumbago with sciatica, right side Category: Medical Qualifiers: Chronicity: unspecified Qualified Code(s): M54.41 - Lumbago with sciatica, right side Plan: X-rays of the lumbar spine done a couple of years ago revealed (+) multilevel degenerative disc disease but no acute findings Right hip x-rays show (+) mild OA changes in the hip SI joint x-rays were normal He was started on a trial of Gabapentin 100 mg Q HS to help with his symptoms but he states that it did not help He was sent for physical therapy of his lower back and hip and states that PT has helped him a lot and that he continues to perform the exercises for his lower back and hip that were taught by physical therapy on a regular basis (9) Tarsal tunnel syndrome of both lower extremities: Code(s): G57.53 - Tarsal tunnel syndrome, bilateral lower limbs Category: Medical Plan: Patient continues to report frequent pain in his feet and legs bilaterally, especially at night He was trialed on Gabapentin 100 mg Q HS, which he states did not help; recalls taking some of his sister's 300 mg Gabapentin in the past that helped somewhat but he does not want to take Gabapentin again at this time (10) Degenerative joint disease of right knee: Code(s): M17.11 - Unilateral primary osteoarthritis, right knee Category: Medical Qualifiers: Osteoarthritis type: primary Qualified Code(s): M17.11 - Unilateral primary osteoarthritis, right knee Plan: X-rays of the right knee done back in January 2024 revealed (+) mild degenerative changes in the right knee Will consider referring him to orthopedics if his knee symptoms get significantly worse For now, we will start him on a trial of meloxicam 15 mg QD with food PRN as patient states that he has been taking a lot of Tylenol lately just to help relieve his joint pains (11) Right elbow pain: Code(s): M25.521 - Pain in right elbow Category: Medical Plan: Will send patient for x-rays of his right elbow for further evaluation (12) Obesity (BMI 30-39.9): Code(s): E66.9 - Obesity, unspecified Category: Medical Plan: Reinforced diet/exercise as tolerated /lose weight Plan Follow up in 4 months Orders: Orders XR elbow RT min 3V 05/16/ M25.521 - Pain in right elbow Hemoglobin A1c 4 Months E11.9 - Type 2 diabetes mellitus without complications Lipid Panel 4 Months E78.00 - Pure hypercholesterolemia, unspecified Complete Blood Count Auto Diff 4 Months D64.9 - Anemia, unspecified Microalbumin, Random (w Creat) 4 Months E11.9 - Type 2 diabetes mellitus without complications TSH reflex Free T4 4 Months E78.00 - Pure hypercholesterolemia, unspecified UA CC w/rflx Micro + Cult 4 Months R30.0 - Dysuria Vitamin D 25-OH Total 4 Months E55.9 - Vitamin D deficiency, unspecified Comprehensive [place]. Panel Fast 4 Months E78.00 - Pure hypercholesterolemia, unspecified Medications: Discontinued blood-glucose meter (FreeStyle Lite Meter kit) Discontinued Reason: Insurance Denied As directed 1 ea 0RF E11.9 - Type 2 diabetes mellitus without complications blood sugar diagnostic (FreeStyle Lite Strips) Discontinued Reason: Insurance Denied 1 strip miscellaneous DAILY 100 ea 12RF for diabetes mellitus E11.9 - Type 2 diabetes mellitus without complications
[2025-05-16 13:08] VITALS: BP 124/66; PULSE 84; TEMP 36.2; O2SAT 96; BMI 33.9
== END 2025-05-16 13:55 | disposition home or self-care (01) ==
LOC: HO.HMCH 12:52
PROVIDERS: PCP Internal Medicine; Visit Provider Internal Medicine
DX: E11.9 Type 2 diabetes mellitus without complications (principal); E78.00 Pure hypercholesterolemia, unspecified; I10 Essential (primary) hypertension; K21.9 Gastro-esophageal reflux disease without esophagitis; M10.00 Idiopathic gout, unspecified site; E55.9 Vitamin D deficiency, unspecified; K59.00 Constipation, unspecified; M54.41 Lumbago with sciatica, right side; G57.53 Tarsal tunnel syndrome, bilateral lower limbs; M17.11 Unilateral primary osteoarthritis, right knee; M25.521 Pain in right elbow; E66.9 Obesity, unspecified

== ENCOUNTER 2025-05-16 12:51 | Outpatient (REF) | payer OTHER, SELFPAY ==
--- NOTE | ~2025-05-16 | XR_ITS ---
EXAMINATION: XR ELBOW, RIGHT CLINICAL INFORMATION: M25.521 - Pain in right elbow COMPARISON: None available. TECHNIQUE: AP, lateral, and oblique views of the right elbow. FINDINGS: Marginal osteophytes are present along the medial joint line. No joint effusion is evident. No fracture line is seen. XR/XR elbow RT min 3V IMPRESSION: Mild degenerative changes in the ulnohumeral joint. No acute bony abnormality. Electronically signed by: Gregory Whitfield MD 05/16/2025 02:35 PM EST
--- OUTSIDE RECORDS SUMMARY | 2025-05-16 15:17 | XMS_ITS | Clinical Summary ---
Author Organization [facility] Facility Address [address] [place] [address], [place] [address] Care Team Providers Care Electronic Calibration Technician Name Role Phone Unavailable Primary Care Provider [...]
--- OUTSIDE RECORDS SUMMARY | 2025-05-16 15:17 | XMS_ITS | Data Portability ---
Author Organization [place] - [facility], Allergy Address [address] [place] [id number] Care Team Providers Care Production Troubleshooter Name Role Phone SOLOMON ACE Primary Care Provider [phone] Assessment Encounter Date Assessment Date Assessment LastModified by Organization Details LastModified Time 03/23/2024 03/23/2024 63-year-old male presents for hearing loss. Audiometric testing obtained at [facility] in September was reviewed today showing [...] changes in hearing. All questions were answered. [email or web address] Not available 03/23/2024 12:06:57 Plan of Treatment [...] audio gram No observ ation record ed. [email or web address] Not Available 02/24 11:44:30 03/23/20 audio gram No observ ation record ed. BARCODE Not Available 2023 13:55:01 Result Notes None recorded. Problems Name Problem SNOMED Code Status Onset Date Resolution Date Notes Provider Name and Address Organization Details Recorded Time Sensorineural hearing loss of bilateral ears 354126054 Active 2023 Odessa carter [place] - [facility] 11:07:19 Problem Notes None recorded. Procedures Surgical History Date Name Laterality Status Provider Name and Address Organization Details Recorded Time 03/23/2024 Comp Audio with Tymps - 82150 & 80683 completed Odessa Xiao [place] - [facility] 03/23/2024 11:07:11 Imaging Results None recorded. [...] Address Organization Details Last Updated DateTime 03/23/2024 144684.13 g 34.2 kg/m2 180.34 cm Chiqui Reyez [place] - [facility] 03/23/2024 10:26:15 Social History None recorded. Functional Status None recorded. Mental Status None recorded. Family History Nothing Reported. Medical History Condition Response Diabetes Y Hypertension Y Past Encounters Encounter ID Performer Location Encounter Start Date Encounter Closed Date Diagnosis/Indication Diagnosis SNOMED-CT Code Diagnosis ICD10 Code Diagnosis IMO Codes Diagnosis Note [id number] JOSEPH GARZA PA-C [facility] [address] [phone] 03/23/2024 10:10:14 03/23/2024 11:26:00 Sensorineural hearing loss of bilateral ears 128960886 H90.3 Audiologic al evaluation results: Right ear: Normal sloping to a moderate sensorineu ral hearing loss with excellent word recognitio n. Left ear: Normal sloping to a moderate sensorineu ral hearing loss with excellent word recognitio n.Asymmetr ic SNHL of 10dB or greater from 2-4kHz, worst in the right. Tympanomet ry: Right Ear:Type [place] [id number] KEIKO VILLALTA OLIVER[place] - [place] [address] [place] [address],[place] [facility] [address] [place] [phone] 03/29/2024 08:53:57 03/30/2024 07:12:30 Sensorineural hearing loss of bilateral ears [id number] H90.3 Patient came with: Irvin yeboah from [...] ID Harden Member ID Guarantor Name 03/26/[address] [place], [place] [id number] 3 Gustavo Jennifer [id number] Gustavo Rodriguez Notes Date Note Type Note [...] have ENT evaluation first. JOSEPH GARZA PA-C [address] [place] [address], [place], [phone], [facility] - [facility] 03/23/2024 12:07:12
== END 2025-05-16 12:52 | disposition home or self-care (01) ==
LOC: HO.XRAY 12:51
PROVIDERS: PCP Internal Medicine; Visit Provider Internal Medicine
DX: M25.521 Pain in right elbow (principal); Z13.31 Encounter for screening for depression
CPT/HCPCS: 73080; 96127

== ENCOUNTER → 2025-05-16 14:06 | Outpatient (BNV) | payer OTHER, SELFPAY | PROVIDERS: PCP Internal Medicine; Visit Provider Radiology Diagnostic Radiology | DX: M19.031 Primary osteoarthritis, right wrist (principal) | CPT/HCPCS: 73080 ==